=== PATIENT | male | born 1960 | race Caucasian/White ===

== ENCOUNTER → 2017-07-31 14:55 | Outpatient (CLI) | payer MEDICARE, SELFPAY ==
[2017-07-31 17:08] LABS: Absolute Lymphocyte Count 2.63 X10^3/ul (0.83-4.51); Absolute Neutrophil Count 4.6 X10^3/uL (2.0-7.7); Basophil# 0.09 X10^3/uL; Eosinophil# 0.43 X10^3/uL; Hematocrit 51.6 % (40-54); Lymphocyte # 2.63 X10^3/ul (4.0); Lymphocyte % 30.3 % (19-41); Mean Corp Hgb Conc 32.9 g/gl (32-36); Mean Corpuscular Hgb 30.2 pg (27.0-32.0); Mean Corpuscular Volume 91.8 fL (80-94); Mean Platelet Vol. 12.3 fl (6.2-12.0); Monocyte# 0.91 X10^3/uL; Monocyte% 10.5 % (0-10); Platelet Count 193 K/mm3 (150-450); RBC Distribution Width CV 12.8 % (11.6-14.6); RBC Distribution Width SD 42.6 fl (35.1-43.9); Red Blood Count 5.62 M/mm3 (4.6-6.2); White Blood Count 8.7 K/mm3 (4.4-11.0)
[2017-07-31 17:18] LABS: ALB/GLOB Ratio 0.9 RATIO (0.9-2.4); AST(SGOT) 17 U/L (15-37); Alanine Aminotransfer ALT/SGPT 26 U/L (16-61); Albumin, Serum 3.6 g/dL (3.2-5.0); Alkaline Phosphatase 134 U/L (45-117); Anion Gap 7 (5-15); BUN 13 mg/dL (7-18); BUN/Creat Ratio 10.5 RATIO (10-20); Calcium,Total 8.7 mg/dL (8.5-10.1); Chloride 105 mmol/L (98-107); Cholesterol 161 mg/dL (200); Creatinine, Serum 1.24 mg/dL (0.70-1.30); EST Glomerular Filtration Rate 64 mL/min (>60); Est Glom Filt Rate - Afr Amer 78 mL/min (>60); Glucose 119 mg/dL (74-106); High Density Lipoprotein 30 mg/dL; Potassium 3.9 mmol/L (3.5-5.1); Protein, Total 7.6 g/dL (6.4-8.2); Sodium Level 139 mmol/L (136-145); Triglycerides 236 mg/dL; Very Low Density Lipoprotein 47 mg/dL (5-40)
[2017-07-31 17:21] LABS: POSITIVE COUNT NO; POSITIVE DIFFERENTIAL NO; POSITIVE MORPHOLOGY NO
[2017-07-31 17:27] LABS: Vitamin D,25 Hydroxy 13.6 ng/mL (29.95-100.01)
[2017-07-31 17:40] LABS: Microalbumin,Random Urine < 5.0 mg/L (NO RANGE EST.)
== END ==
PROVIDERS: Family Provider Family Medicine; PCP Family Medicine; Visit Provider Family Medicine
DX: E11.42 Type 2 diabetes mellitus with diabetic polyneuropathy (principal); E78.5 Hyperlipidemia, unspecified; E55.9 Vitamin D deficiency, unspecified; Z51.81 Encounter for therapeutic drug level monitoring
CPT/HCPCS: 36415; 80053; 80061; 82043; 82306; 82570; 85025

== ENCOUNTER → 2017-09-03 16:15 | Outpatient (CLI) | payer MEDICARE, SELFPAY ==
--- NOTE | 2017-09-03 16:15 | DT_ITS ---
This patient was seen during an EMR downtime August 31, 2017 - September 07, 2017. This patient may have a combination of paper and electronic documentation or all paper documentation. All documentation is viewable within the e-chart portion of [facility] for each patient visit.
[2017-09-08 01:42] LABS: BUN 10 mg/dL (7-18); Glucose 93 mg/dL (74-106)
[2017-09-08 01:43] LABS: ALB/GLOB Ratio 0.9 RATIO (0.9-2.4); AST(SGOT) 14 U/L (15-37); Alanine Aminotransfer ALT/SGPT 25 U/L (16-61); Albumin, Serum 3.6 g/dL (3.2-5.0); Alkaline Phosphatase 126 U/L (45-117); Calcium,Total 8.9 mg/dL (8.5-10.1); Chloride 104 mmol/L (98-107); Creatinine, Serum 1.25 mg/dL (0.70-1.30); EST Glomerular Filtration Rate 64 mL/min (>60); Est Glom Filt Rate - Afr Amer 78 mL/min (>60); Globulin 3.8 g/dL (2.2-4.2); Potassium 3.8 mmol/L (3.5-5.1); Protein, Total 7.4 g/dL (6.4-8.2); Sodium Level 143 mmol/L (136-145)
[2017-09-08 01:44] LABS: Anion Gap 7 (5-15)
[2017-09-08 01:47] LABS: Hematocrit 49.8 % (40-54); Hemoglobin 16.1 g/dl (13.0-16.5); Mean Corp Hgb Conc 32.3 g/gl (32-36); Mean Corpuscular Hgb 29.9 pg (27.0-32.0); Mean Corpuscular Volume 92.4 fL (80-94); Neutrophil % 55.5 % (47-70); POSITIVE COUNT NO; POSITIVE DIFFERENTIAL NO; POSITIVE MORPHOLOGY NO; Platelet Count 202 K/mm3 (150-450); RBC Distribution Width CV 13.4 % (11.6-14.6); RBC Distribution Width SD 44.2 fl (35.1-43.9); Red Blood Count 5.39 M/mm3 (4.6-6.2)
[2017-09-08 01:48] LABS: Absolute Lymphocyte Count 2.61 X10^3/ul (0.83-4.51); Absolute Neutrophil Count 5.1 X10^3/uL (2.0-7.7); Basophil# 0.07 X10^3/uL; Basophil% 0.8 % (0-1); Eosinophil# 0.28 X10^3/uL; Eosinophils% 3.1 % (0-5); Lymphocyte # 2.61 X10^3/ul (4.0); Lymphocyte % 28.4 % (19-41)
[2017-09-08 01:49] LABS: White Blood Count 9.2 K/mm3 (4.4-11.0)
== END ==
PROVIDERS: Family Provider Family Medicine; PCP Family Medicine; Visit Provider Family Medicine
DX: M35.1 Other overlap syndromes (principal); Z51.81 Encounter for therapeutic drug level monitoring
CPT/HCPCS: 36415; 80053; 85025

== ENCOUNTER → 2017-12-31 14:49 | Outpatient (CLI) | payer MEDICARE, SELFPAY | PROVIDERS: Family Provider Family Medicine; PCP Family Medicine; Visit Provider Family Medicine | DX: Z51.81 Encounter for therapeutic drug level monitoring (principal) | CPT/HCPCS: 36415 ==

== ENCOUNTER → 2018-07-15 13:05 | Outpatient (CLI) | payer MEDICARE, SELFPAY ==
--- NOTE | 2018-07-15 13:09 | RAD_ITS ---
STUDY: SWALLOWING STUDY REASON FOR EXAM: Male, 58 years old. Dysphagia. TECHNIQUE: The examination was performed with Speech Pathology in attendance. Under fluoroscopic observation, the patient ingested thin barium, thick barium, barium pudding, and barium coated cracker. FLUOROSCOPY TIME: 2:05 minutes/seconds. 1941 fluoroscopic spot images were obtained. RADIOLOGIST INVOLVEMENT: Radiologist was present and providing direct supervision. COMPARISON: None. FINDINGS: The following was observed during swallowing of the various mixtures of barium: Thin Barium: There is evidence of silent aspiration with ingestion of thin liquids with a straw. Thick Barium: There was no evidence of aspiration or laryngeal penetration. Barium Pudding: There was no evidence of aspiration or laryngeal penetration. Barium Coated Cracker: There was no evidence of aspiration or laryngeal penetration. RAD/Swallowing Function w/Video IMPRESSION: Silent aspiration with ingestion of thin liquids by straw. The swallow study findings were discussed with the patient by the speech pathologist at the conclusion of the examination. Please see speech pathology report for more information and recommendations. Electronically Signed: Yassine Bianchi, at 14:47 EDT , Service support ,
--- NOTE | 2018-07-15 14:13 | SP.MBSS_ITS ---
PRIMARY / SECONDARY DIAGNOSIS: dysphagia, unspecified REFERRING PHYSICIAN: Dr. Nelson Xiong CURRENT DIET: soft textures/thin liquids DENTITION: natural teeth/several missing molars MENTAL STATUS: WFL RESPIRATORY STATUS: O2 via room air PREVIOUS MODIFIED BARIUM SWALLOW STUDY: N/A REASON FOR REFERRAL: pain with swallowing, difficulty with pills MEDICAL HISTORY: Crest syndrome, possible GERD although patient unsure STUDY FINDINGS: Patient participated in a Modified Barium Swallow (MBS) study on 07/15/2018. Dr. Bianchi was the radiologist present for this evaluation. This study was recorded in the lateral view and images were sent to PACs for storage. The following consistencies were presented to this patient for analysis of oropharyngeal swallow function: thin liquid, nectar thick liquid, pudding, and a regular textured, Mirlande Doone cookie. Results of the MBS are as follows: PENETRATION / ASPIRATION SCALE (RALPH): 1 = does not enter airway 2 = enters airway/above vocal folds/ejected 3 = enters airway/above vocal folds/not ejected 4 = enters airway/contacts vocal folds/ejected 5 = enters airway/contacts vocal folds/not ejected 6 = enters airway/below vocal folds/ejected 7 = enters airway/below vocal folds/not ejected despite effort 8 = enters airway/below vocal folds/no effort PENETRATION / ASPIRATION SCALE (SCORE): 1) thin liquids via teaspoon = 1 2) thin liquids via teaspoon = 1 3) thin liquids via small single sip from cup= 4 *questionable trace amount not ejected 4) thin liquids via large single sip from cup = 3 5) thin liquids via sequential sips from cup = 1 6) nectar thick liquids via small single sip from cup= 1 7) nectar thick liquids via large single sip from cup = 1 8) pudding = *image not capture due to technical issues; pt tolerated without aspiration 9) cookie = 1 10) thin liquids via straw = 5 11) thin liquids via small sip from cup = 1 12) thin liquids via large sip from cup =1 IMPRESSION: Mild oropharyngeal dysphagia (R13.12) ORAL PHASE CHARACTERIZED BY: LABIAL SEAL: no labial escape TONGUE CONTROL DURING BOLUS MANIPULATION: escape to lateral buccal cavity/floor of mouth BOLUS PREPARATION / MASTICATION: slow prolonged chewing/mashing with complete recollection BOLUS TRANSPORT / LINGUAL MOTION: slowed tongue motion ORAL RESIDUE: residue collection on oral structures PHARYNGEAL PHASE CHARACTERIZED BY: INITIATION OF PHARYNGEAL SWALLOW: bolus head at posterior laryngeal surface of epiglottis at first hyoid excursion SOFT PALATE ELEVATION: no bolus between soft palate and pharyngeal wall LARYNGEAL ELEVATION: partial superior movement of thyroid cartilage/partial approximation of arytenoids cartilage to epiglottic petiole ANTERIOR HYOID EXCURSION: partial anterior movement EPIGLOTTIC MOVEMENT: complete epiglottic inversion LARYNGEAL VESTIBULE CLOSURE AT HEIGHT OF SWALLOW: incomplete laryngeal vestibule closure with narrow column of air/contrast in laryngeal vestibule PHARYNGEAL STRIPPING WAVE: pharyngeal stripping wave present / complete PHARYNGOESOPHAGEAL SEGMENT OPENING: partial distension and partial duration; partial obstruction of flow TONGUE BASE RETRACTION: narrow column of contrast between tongue base and posterior pharyngeal wall PHARYNGEAL RESIDUE: collection of residue within or on pharyngeal structures ESOPHAGEAL PHASE CHARACTERIZED BY: ESOPHAGEAL BOLUS CLEARANCE IN THE UPRIGHT POSITION: mild esophageal retention DIET TEXTURE RECOMMENDATIONS: Will recommend a mechanical soft textured, thin liquid diet. COMPENSATORY STRATEGIES RECOMMENDED: Will recommend reduced bolus volume and rate of intake, alternating bites with sips, no straws, adding sauces/gravy to textures or choosing moist food, seated upright at 90 degrees during PO intake and remain upright for 30-60 minutes post meal (GERD precaution), and medications with purees. INTERPRETATION OF RESULTS: Patient presents with mild oropharyngeal dysphagia secondary to Crest Syndrome. Oral phase primarily marked by prolonged mastication and diminished control of Mirlande Doone shortbread cookie with mild oral residue following initial swallow. Pharyngeal phase primarily marked by delayed pharyngeal swallow onset timing resulting in suboptimal bolus location upon swallow onset. With sips of thin liquid via straw the patient noted to have penetration to the vocal cords that was not ejected, however no aspiration noted upon closer inspection. The patient noted to have sporadic penetration not directly related to liquid consistency and/or quantity. No penetration/aspiration noted with trials of nectar thickened liquids, pudding, or solid textures. RECOMMENDATIONS: The patient requires intensive skilled speech-language intervention targeting continued diet texture management and training and implementation of recommended compensatory strategies. Would consider a repeat modified barium swallow study on an annual basis given etiology of swallow deficit. Results and recommendations were discussed with the patient immediately following MBS completion, with the patient verbalizing understanding of education provided. The patient is aware to follow up with the ordering physician. IMAGE COUNT: [id number] Maricarmen Ruth M.A., [facility] Speech Language Pathologist [facility] [address] [place] [address] [email or web address] [phone]
== END ==
PROVIDERS: Family Provider Family Medicine; PCP Family Medicine; Referring Provider Family Medicine; Visit Provider Family Medicine
DX: R13.10 Dysphagia, unspecified (principal)
CPT/HCPCS: 36415; 74230; 86038; 86225; 86235; 92611

== ENCOUNTER → 2018-07-15 13:37 | Outpatient (CLI) | payer MEDICARE, SELFPAY ==
[2018-07-19 16:07] LABS: ANTINUCLEAR ANTIBODIES DIRECT Positive (Negative); Anti-Centromere B Ab <0.2 AI (0.0-0.9); Anti-Chromatin 0.3 AI (0.0-0.9); Anti-Jo <0.2 AI (0.0-0.9); Anti-Scleroderma-70 AB 0.8 AI (0.0-0.9); RNP Ab 3.4 AI (0.0-0.9); SJOGREN'S Anti-SS-A test < 0.2 AI (0.0-0.9); SJOGREN'S Anti-SS-B test < 0.2 AI (0.0-0.9); Smith Ab <0.2 AI (0.0-0.9)
[2018-07-20 18:01] LABS: Anti-dsDNA Ab 1 IU/mL (0-9)
== END ==
PROVIDERS: Family Provider Family Medicine; PCP Family Medicine; Referring Provider Family Medicine; Visit Provider Family Medicine
DX: M35.1 Other overlap syndromes (principal)
CPT/HCPCS: 36415; 86038; 86225; 86235

== ENCOUNTER → 2019-01-18 15:37 | Outpatient (CLI) | payer MEDICARE, SELFPAY ==
[2019-01-18 17:12] LABS: Absolute Lymphocyte Count 2.26 X10^3/uL (0.83-4.51); Absolute Neutrophil Count 4.8 X10^3/uL (2.0-7.7); Basophil# 0.08 X10^3/uL; Eosinophils% 2.4 % (0-5); Hematocrit 49.4 % (40-54); Hemoglobin 15.9 g/dL (13.0-16.5); Lymphocyte # 2.26 X10^3/ul (4.0); Lymphocyte % 27.3 % (19-41); Mean Corp Hgb Conc 32.2 g/dL (32-36); Mean Corpuscular Hgb 29.7 pg (27.0-32.0); Mean Corpuscular Volume 92.2 fL (80-94); Mean Platelet Vol. 11.7 fl (6.2-12.0); Monocyte# 0.91 X10^3/uL; NRBC Flagged by Analyzer 0 % (0-5); Neutrophil % 58.1 % (47-70); Platelet Count 188 K/mm3 (150-450); RBC Distribution Width CV 12.6 % (11.6-14.6); RBC Distribution Width SD 42.6 fl (35.1-43.9); Red Blood Count 5.36 M/mm3 (4.6-6.2); White Blood Count 8.3 K/mm3 (4.4-11.0)
[2019-01-18 17:39] LABS: Vitamin B12 617 pg/mL (211-911); Vitamin D,25 Hydroxy 23.8 ng/mL (29.95-100.01)
[2019-01-18 17:49] LABS: ALB/GLOB Ratio 0.9 RATIO (0.9-2.4); AST(SGOT) 17 U/L (15-37); Alanine Aminotransfer ALT/SGPT 28 U/L (16-61); Albumin, Serum 3.6 g/dL (3.2-5.0); Alkaline Phosphatase 117 U/L (45-117); Anion Gap 4 (5-15); BUN 11 mg/dL (7-18); BUN/Creat Ratio 9.6 RATIO (10-20); Calcium,Total 8.6 mg/dL (8.5-10.1); Chloride 104 mmol/L (98-107); Creatinine, Serum 1.14 mg/dL (0.70-1.30); EST Glomerular Filtration Rate 71 mL/min (>60); Est Glom Filt Rate - Afr Amer 85 mL/min (>60); Globulin 3.8 g/dL (2.2-4.2); Glucose 99 mg/dL (74-106); Potassium 3.7 mmol/L (3.5-5.1); Protein, Total 7.4 g/dL (6.4-8.2); Sodium Level 138 mmol/L (136-145); T4 Free Direct 0.96 ng/dL (0.76-1.46); Thyroid Stim Hormone (TSH) 2.58 uIU/mL (0.358-3.74)
[2019-01-18 19:01] LABS: Hemoglobin A1c 5.7 % (4.2-6.3)
== END ==
PROVIDERS: Family Provider Family Medicine; PCP Family Medicine; Visit Provider Family Medicine
DX: R53.83 Other fatigue (principal); E55.9 Vitamin D deficiency, unspecified; E11.9 Type 2 diabetes mellitus without complications
CPT/HCPCS: 36415; 80053; 82306; 82533; 82607; 83036; 84439; 84443; 85025

== ENCOUNTER 2019-04-13 18:21 | Observation (INO) | payer MEDICARE, SELFPAY ==
[2019-04-13 18:22] VITALS: BP 115/77; PULSE 82; RESP 17; TEMP 36.5; O2SAT 97; BMI 30.7
[2019-04-13 19:23] VITALS: RESP 17
[2019-04-13] MEDS: 0.9% Normal Saline 1,000 ML 150 ML IV (19:24)
[2019-04-13 19:37] LABS: Bacteria 0 SEEN /hpf (None Seen); Mucous, Urine 0 SEEN /hpf (<or=2+); Red Blood Cells-Urine 0 SEEN /hpf (0-5); White Blood Cells 0 SEEN /hpf (0-5)
[2019-04-13 19:39] LABS: Absolute Lymphocyte Count 1.64 X10^3/uL (0.83-4.51); Absolute Neutrophil Count 12.1 X10^3/uL (2.0-7.7); Basophil# 0.02 X10^3/uL; Basophil% 0.1 % (0-1); Hemoglobin 17.2 g/dL (13.0-16.5); Lymphocyte # 1.64 X10^3/ul (4.0); Lymphocyte % 11.3 % (19-41); Mean Corp Hgb Conc 33.7 g/dL (32-36); Mean Corpuscular Hgb 29.6 pg (27.0-32.0); Mean Corpuscular Volume 87.8 fL (80-94); Mean Platelet Vol. 10.9 fl (6.2-12.0); Monocyte# 0.72 X10^3/uL; Monocyte% 4.9 % (0-10); NRBC Flagged by Analyzer 0 % (0-5); Neutrophil # 12.12 X10^3/uL (2.7-7.7); Neutrophil % 83.2 % (47-70); Platelet Count 254 K/mm3 (150-450); RBC Distribution Width CV 12.1 % (11.6-14.6); RBC Distribution Width SD 39.3 fl (35.1-43.9); Red Blood Count 5.81 M/mm3 (4.6-6.2); White Blood Count 14.6 K/mm3 (4.4-11.0)
[2019-04-13 19:40] LABS: Color, Urine Yellow (Yellow); Glucose, Dipstick Normal (Normal); Ketone-Dipstick Negative (Negative); Leukocyte Esterase-Dipstick 25 /ul (Negative); Nitrite-Dipstick Negative (Negative); Occult Blood-Urine Negative /ul (Negative); Protein-Dipstick Negative (Negative); Specific Gravity, Urine 1.015 (1.002-1.030); Urine Bilirubin Dipstick Negative (Negative); Urine Clarity Clear (Clear); Urine Urobilinogen Normal (Normal)
[2019-04-13 20:02] LABS: Squamous Epithelial Cells - UA 0-5 SEEN /hpf (0-5)
[2019-04-13 20:06] LABS: Anion Gap 6 (5-15); BUN 20 mg/dL (7-18); BUN/Creat Ratio 16.1 RATIO (10-20); Chloride 104 mmol/L (98-107); Creatinine, Serum 1.24 mg/dL (0.70-1.30); EST Glomerular Filtration Rate 64 mL/min (>60); Est Glom Filt Rate - Afr Amer 77 mL/min (>60); Estimated Creatinine Clearance 70.85 ml/min; Glucose 137 mg/dL (74-106); Potassium 4.1 mmol/L (3.5-5.1); Sodium Level 136 mmol/L (136-145)
[2019-04-13 20:08] LABS: Amphetamine Urine VISTA NEGATIVE (<1000 ng/mL); Barbiturate Urine VISTA NEGATIVE (< 200 ng/mL); Benzodiazepine Urine VISTA NEGATIVE (< 200 ng/mL); Cocaine Urine VISTA NEGATIVE (< 300 ng/mL); Ecstacy Urine VISTA NEGATIVE (< 500 ng/mL); Methadone Urine VISTA NEGATIVE (< 300 ng/mL); PCP Urine VISTA NEGATIVE (< 25 ng/mL); THC Urine VISTA NEGATIVE (< 50 ng/mL); Vista UDS pH Range 6
--- NOTE | 2019-04-13 21:01 | CM.ED ---
Social Work Consult: D/C Planning Informant: BOO Ribeiro Per nursing staff: Patient discharged from [facility] detox unit today. Patient stating to not be able to care for self and came straight to [facility] ED from [facility]. Chief Complaint: Patient stating to be unable to care for self and to need to go somewhere where someone can care for me. Marital/Social history: Patient stating to be single. Patient stating to have a 10 year old son, Aden Kim and a 10 year old daughter, Andria Yarbrough. Patient stating that Aden and Andria are 5 months apart and live with the in-laws. Patient stating to speak with Andria but not Aden because he is a brat. Living Situation: Lives alone in an apartment. Employment/Education: Patient stating to be on disability due to medical diagnosis for the past 10 years. Supports/Resources: Limited Mental Health History: Patient denies any mental health history. Substance Abuse History: Patient stating to have a history of abusing pain medication (Oxyir). Patient stating to have ran out and this put patient into withdrawal and why patient brought self to [facility] for detox. This social sciences professor inquiring if patient is wanting to detox from pain medication usage, patient stating I don't want my feet to hurt and the pain medication helped with this. Patient stating to smoke 2-3 ppd of tobacco, depending on how I feel. Patient denies any other substance abuse. Risk to Self/Others: Denies any suicidal thoughts or plan to hurt self. Assessment: Met with patient in room. Introduced self as well as social sciences professor role. Patient agreeable to meet with this social sciences professor. Patient laying in bed with eyes closed during majority of assessment. Patient stating to be in pain and to be unable to care for self. Patient stating to want to go to a detention where patient will have someone to care for patient. Patient stating I feel sick. Patient stating to need to get better so patient can get home to care for cat. Patient stating that patient neighbors are currently checking on patient cat. Patient stating to also be concerned with loosing apartment. Patient stating to not be behind on rent and to pay all bills on time. Patient stating that neighbors want patient to move out and that patient has a letter from the landlord. Patient stating that main pain is from feet and they are messed up. Active support and listening provided. Patient stating to have limited support in the community and is not identifying anyone that could be called to help patient. Patient stating I am a grown man and don't need support. Collaborating with Dr. Roper. Dr. Roper to consult with hospitalist due to patient stating to be unable to ambulate or care for self at this time. PLAN: Admit to acute setting for placement. Rogelio MIRZA, BUSTER
--- NOTE | 2019-04-13 21:06 | HP.PCM_ITS ---
Problem List (1) Failure to thrive Status: Acute Qualifiers: Failure to thrive age range: in adult Qualified Code(s): R62.7 - Adult failure to thrive (2) History of opioid abuse Status: Chronic (3) Chronic pain syndrome Status: Chronic (4) Neuropathy Status: Chronic (5) Gastroparesis due to DM Status: Chronic (6) Diabetes mellitus, type II Status: Chronic Qualifiers: Diabetes mellitus senior care insulin use: without termite exterminator use Diabetes mellitus complication status: with other specified complication Qualified Code(s): E11.69 - Type 2 diabetes mellitus with other specified complication (7) BPH (benign prostatic hyperplasia) Status: Chronic Qualifiers: Lower urinary tract symptom presence: unspecified whether lower urinary tract symptoms present Qualified Code(s): N40.0 - Benign prostatic hyperplasia without lower urinary tract symptoms (8) Tobacco use Status: Chronic History of Present Illness Date of Admission: 04/13/19 Chief Complaint: Unable to care for self, recent opiate withdrawal program treatment The patient is a 58 y/o M w/ PMHx: Hx prior noted Diabetes mellitus type II w/ Suspected Gastroparesis w/ PVD/Neuropathy, HLD, Tobacco use, BPH, Obesity, Suspected Underlying Psychiatric disorder, Polysubstance abuse with percocet with recent discharge from [facility] although patient denies history and notes that the only reason he was sent there was by his primary care physician as he ran out of Percocet and it would not be refilled and he notes he went into withdrawal who presents to the [facility] ED on 04/13/19 with ongoing complaints of BL foot pain, generalized aches, unable to care for himself at home. He notes he feels as though he needs to be admitted to a SNF. He said there is no way he can take care of himself although he does admit to smoking 2 to 4 packs of cigarettes a day and is able to go and get things by himself. He notes his lower extremity foot pain is worse with any attempted palpation with intermittent sharp shooting/stabbing pain, 10/10 in severity, denies any significant history of neuropathy but from his description suspect ongoing neuropathy. Work-up in the ED included T 97.7, heart rate 82, BP 115/77, RR 17, 97% on RA, CBC with WBC 14.6, hemoglobin 17.2, platelet 254 with left shift, BMP with BUN/creatinine 20/1.24, glucose 137, urinalysis unremarkable, urine drug screen unremarkable. meeting manager/licensed master social worker evaluated patient in the ED and he is very adamant that he is not able to return to his home and take care of himself without being on narcotic therapy. He was actually in a cab being driven home from [facility] and instructed the cable television line technician to take him to the hospital in [place]. He denies being admitted to [facility] secondary to an underlying concurrent psychiatric illness but he notes having been there for 5 days. Requested records but have not yet obtained these. In the ED patient administered normal saline. Patient was made aware that given his recent narcoti c abuse history and recent treatment, narcotics would be avoided during his observation. He was also made aware that pending PT/OT evaluation he may not be a candidate for SNF. Past Medical History Past Medical History (Chronic Problems): Chronic Problems History of opioid abuse (Chronic) Chronic pain syndrome (Chronic) Neuropathy (Chronic) Gastroparesis due to DM (Chronic) Diabetes mellitus, type II (Chronic) BPH (benign prostatic hyperplasia) (Chronic) Tobacco use (Chronic) Allergies No Known Allergies Allergy (Verified 04/13/19 18:22) Home Medications: Ambulatory Orders Medication Instructions Recorded Tamsulosin HCl [Flomax] 0.4 mg PO BID 10/04/15 Surgical History: - - T+A, L ankle surgery. Psychiatric History: - - Suspect underlying psychiatric disorder, from current presentation concern for schizophrenia. Lives: Alone Smoking Status: Current every day smoker - Admits to 2-4 per day cigarette tobacco usage since youth. Tobacco Use: Cigarettes Alcohol: None Drugs: - - From discussions on from recent discharge recent treatment for opiate withdrawal with heavy Percocet prior usage. - *Family History Maternal History Items: - - Patient notes a maternal family history of ovarian cancer. Paternal History Items: - - Patient notes a paternal family history of leukemia. Review of Systems Constitutional: Reports: Anorexia, Malaise, Weakness, Fatigue. Denies: Chills, Fever, Weight Change HEENT: Reports: Nasal Congestion, Sinus Congestion. Denies: Head Aches, Sinus Drainage Cardiovascular: Denies: Chest Pain, Palpitations Respiratory: Denies: Cough, Shortness of breath at rest, Sputum production Gastrointestinal: Reports: Constipation, Nausea. Denies: Abdominal Pain, Vomiting Genitourinary: Denies: Dysuria Musculoskeletal: Reports: Back Pain, Foot Pain, Joint Pain, Muscle pain. Denies : Joint Tenderness Skin: Denies: Rash, Wounds Neurological: Reports: Numbness, Tingling. Denies: Focal weakness Psychiatric: Denies: Anxiety, Depression, Homicidal Ideations, Suicidal Ideations Hematologic/ Lymphatic: Denies: Easy Bruising, Easy Bleeding VTE Information - Inpt Only VTE Present on Admission: No VTE Mechan Device Prophylaxis: SCD's VTE Pharm Prophylaxis ordered?: Yes Patient Problems: Active and Suspected Problems Failure to thrive (Acute) Subjective: Seated upright in the ED bed, watching TV, notes he is in market distress but does not appear so, notes ongoing foot discomfort, notes he cannot care for himself secondary to not being able to tolerate his foot pain off of narcotics. Objective: Physical Examination: General: awake, alert, oriented x 3 and cooperative, seated upright in the ED bed in no obvious apparent distress, initially watching TV. Skin: normal color, turgor, no icterus, cyanosis. HEENT: AT/NC, EOMI, PERRLA, MMM, no carotid bruits or JVD noted. Lungs: CTA bilaterally, moderate effort, moderate decrease BL bases, no rales, ronchi or wheezing. Heart: Regular rate and rhythm; no gallop, rub audible. Abdomen: soft, overweight, NTTP, ND, normal BS, no HSM. Extremities: no cyanosis, clubbing, or edema, tenderness to palpation of his bilateral lower extremities with no obvious concerning findings. Neurological: patient awake, alert, oriented x 3; cognitive function intact; pupils equally reactive to light and accomodation; cranial nerves II-XII grossly normal, moving all 4 extremities notes ongoing chronic neuropathic discomfort to bilateral lower feet, strength mild to moderately impaired but more so secondary patient unwillingness to perform certain tasks. Psychiatric: affect appears abnormal, suspect underlying psychiatric illness, possibly schizophrenia, no obvious current depressive or anxiety feelings. - Physical Exam Vitals/I&O's: Vital Signs Temp Pulse Resp BP Pulse Ox 97.7 F L 82 17 115/77 97 04/13/19 18:22 04/13/19 18:22 04/13/19 19:23 04/13/19 18:22 04/13/19 18:22 Oxygen Delivery Method Room Air Weight: 220 lb Body Mass Index (BMI) 30.7 Laboratory Results 04/13/19 19:24: Urine Color Yellow, Urine Clarity Clear, Urine pH 6.0, Ur Specific [place] 1.015, Urine Protein Negative, Urine Glucose (UA) Normal, Urine Ketones Negative, Urine Occult Blood Negative, Urine Nitrite Negative, Urine Bilirubin Negative, Urine Urobilinogen Normal, Ur Leukocyte Esterase 25 H, Urine RBC 0 SEEN, Urine WBC 0 SEEN, Ur Squamous Epith Cells 0-5 SEEN, Urine Bacteria 0 SEEN, Urine Mucus 0 SEEN 04/13/19 19:24: Urine Opiates Screen NEGATIVE, Urine Methadone Screen NEGATIVE, Ur Barbiturates Screen NEGATIVE, Ur Phencyclidine Scrn NEGATIVE, Ur Amphetamines Screen NEGATIVE, U Methamphetamin-MDMA NEGATIVE, U Benzodiazepines Scrn NEGATIVE, Urine Cocaine Screen NEGATIVE, U Cannabinoids Screen NEGATIVE, Ur Drug Screen Comment 04/13/19 19:27: WBC 14.6 H, RBC 5.81, Hgb 17.2 H, Hct 51.0, MCV 87.8, MCH 29.6, MCHC 33.7, RDW Std Deviation 39.3, RDW Coeff of Halley 12.1, Plt Count 254, MPV 10.9, Immature Gran % (Auto) 0.500, Neut % (Auto) 83.2 H, Lymph % (Auto) 11.3 L, [place] % (Auto) 4.9, Eos % (Auto) 0.0, Baso % (Auto) 0.1, Absolute Neuts (auto) 12.1 H, Absolute Lymphs (auto) 1.64, Nucleated RBC % 0 04/13/19 19:27: Sodium 136, Potassium 4.1, Chloride 104, Carbon Dioxide 26.0, Anion Gap 6, BUN 20 H, Creatinine 1.24, Estim Creat Clear Calc 70.85, Est GFR (MDRD) Af Amer 77, Est GFR (MDRD) Non-Af 64, BUN/Creatinine Ratio 16.1, Glucose 137 H, Calcium 9.0 Current Medications Sodium Chloride () 1,000 mls @ 150 mls/hr IV .[id number] [facility] Last Admin: 04/13/19 19:24 Dose: 150 mls/hr Documented by: Assessment/Plan All Active Problems Failure to thrive (Acute) The patient is a 58 y/o M w/ PMHx: Hx prior noted Diabetes mellitus type II w/ Suspected Gastroparesis w/ PVD/Neuropathy, HLD, Tobacco use, BPH, Obesity, Suspected Underlying Psychiatric disorder, Polysubstance abuse with percocet with recent discharge from [facility] although patient denies history and notes that the only reason he was sent there was by his primary care physician as he ran out of Percocet and it would not be refilled and he notes he went into withdrawal who presents to the [facility] ED on 04/13/19 with ongoing complaints of BL foot pain, generalized aches, unable to care for himself at home. 1. Failure to thrive, adult, unable to care for self: Patient recently discharged from [facility], suspect underlying psychiatric illness, records requested, notes ongoing pain to his bilateral feet is etiology for unable to care for himself off narcotic therapy, attempting to transition to gabapentin to see if this may control his symptoms although will need to be cautious given abuse history, will admit to the medical surgical floor, maintain on fall precautions, PT and OT will be consulted for consideration for intermediate facility placement as well as case management however did discuss that patient may very readily not qualify. 2. History of diabetes mellitus type II with neuropathy and suspected prior gastroparesis as well as PVD: Not on regimen, notes history of diabetes prior but since 80 pound weight loss has been off medications, will obtain hemoglobin A1c and in interim maintain on ADA diet, accu checks w/ ISS. Will initiate low- dose 3 times daily gabapentin to see if this assists with patient's neuropathy will need to be cautious given history of narcotic prior abuse. 3. History of opiate abuse: Patient recently discharged from [facility] with reported opiate withdrawal treatment however he was there for 5 days, records requested a suspect potential concurrent psychiatric disorder treatment. Discussed with patient that narcotics would be avoided during his admission. 4. Tobacco Abuse: Encouraged cessation, inpatient consultation per RT, NR if desired. 5. BPH: We will continue patient Flomax regimen. 6. Suspected psychiatric disorder: As noted recent [facility] admission for narcotic withdrawal however he was there for 5 days therefore suspect potential underlying psychiatric illness concurrently, records requested. 7. DVT prophylaxis: SCDs, Lovenox. Code Visit OBSV E&M: 63636 Initial observation care L3
--- NOTE | 2019-04-13 21:07 | ED.VISSUMM ---
- ER Visit Summary Date of Service: 04/13/19 Chief Complaint: [Weakness and requesting admission for detention placement] History of Present Illness: The patient is a 58 M [presents to the emergency department with complaint of chronic pain in his feet. Patient states that he feels very weak. Patient states he was just discharged from [facility] today and placed in a cab to go home. Patient was therefore detox from opiates. Patient states that he cannot care for himself and cannot go home. Patient is asking to be placed in a detention. Patient has chronic pain in his feet. He tells me he used to be diabetic and have high cholesterol but then he lost 80 pounds. He denies any recent illness. Denies any fevers. Denies feeling suicidal or homicidal.] Physical Examination: [HEENT-PERRLA, EOMI. Cranial nerves II through XII grossly intact. TMs clear. Mucous membranes moist. No adenopathy. Cardiovascular-regular rate and rhythm without murmur or ectopy Lungs-clear to auscultation, chest wall stable without crepitus or subcu emphysema Abdomen-normoactive bowel sounds, soft, nontender, no rebound or rigidity, no peritoneal signs. Extremities-intact ?4, normal range of motion, normal pulses, atraumatic] Test Results: [CBC with differential obtained showed a white count of 14.6, hemoglobin 17, hematocrit 51, platelet 254. Chemistries unremarkable. Urinalysis was normal. Toxicology screen was negative.] Emergency Department Course and Treatment: [IV line established and he was given normal saline.] Treatment Plan: [Discussed with hospitalist to evaluate patient for admission. Patient was seen by the social services technician.] Disposition: [Admit] Impression: [Lysed weakness Chronic pain History of opiate abuse] This note was generated with dotCloud dictation software. It may contain incorrect words, spelling, and punctuation that were not noted in review of the chart prior to signing ED Disposition - Plan for ED Patient: Referrals: Nelson Xiong DO [Primary Care Provider] -
[2019-04-13 22:07] VITALS: BMI 29.5
[2019-04-13 22:35] LABS: Magnesium 2.7 mg/dL (1.6-2.6)
[2019-04-13] MEDS: 0.9% Normal Saline 1,000 ML 125 ML IV (22:44)
[2019-04-13] MEDS: Methocarbamol 750 MG Tablet PO (23:10)
[2019-04-13] MEDS: Pramipexole Di-HCl 0.25 MG Tablet PO (23:10)
[2019-04-13] MEDS: Gabapentin 100 MG Capsule 200 MG PO (23:11)
[2019-04-13] MEDS: Famotidine 20 MG Tablet PO (23:11)
[2019-04-13 23:16] LABS: Bedside Glucose 115 mg/dL (70-110)
[2019-04-13 23:20] VITALS: BP 114/70; PULSE 64; RESP 16; TEMP 36.7; O2SAT 98
[2019-04-13] MEDS: Acetaminophen 325 MG Tablet 650 MG PO (23:31)
[2019-04-13] MEDS: BENZOCAINE/MENTHOL 1 LOZENGE MUCOUS MEM (23:31)
[2019-04-14] MEDS: Magnesium Hydroxide 30 ML UDC 15 ML PO (00:26)
[2019-04-14 03:32] VITALS: BP 108/72; PULSE 71; RESP 18; TEMP 36.6; O2SAT 96
[2019-04-14] MEDS: Ibuprofen 400 MG Tablet PO ×2 (03:39→11:28)
[2019-04-14 06:09] LABS: Absolute Lymphocyte Count 2.87 X10^3/uL (0.83-4.51); Absolute Neutrophil Count 9.5 X10^3/uL (2.0-7.7); Basophil# 0.05 X10^3/uL; Basophil% 0.4 % (0-1); Eosinophil# 0.02 X10^3/uL; Eosinophils% 0.1 % (0-5); Hematocrit 49.4 % (40-54); Hemoglobin 16.2 g/dL (13.0-16.5); Lymphocyte # 2.87 X10^3/ul (4.0); Lymphocyte % 20.9 % (19-41); Mean Corp Hgb Conc 32.8 g/dL (32-36); Mean Corpuscular Volume 88.5 fL (80-94); Mean Platelet Vol. 10.9 fl (6.2-12.0); Monocyte# 1.26 X10^3/uL; Monocyte% 9.2 % (0-10); NRBC Flagged by Analyzer 0 % (0-5); Neutrophil # 9.45 X10^3/uL (2.7-7.7); Platelet Count 228 K/mm3 (150-450); RBC Distribution Width CV 12.2 % (11.6-14.6); RBC Distribution Width SD 39.8 fl (35.1-43.9); Red Blood Count 5.58 M/mm3 (4.6-6.2); White Blood Count 13.7 K/mm3 (4.4-11.0)
[2019-04-14 06:48] LABS: ALB/GLOB Ratio 0.9 RATIO (0.9-2.4); AST(SGOT) 20 U/L (15-37); Alanine Aminotransfer ALT/SGPT 57 U/L (16-61); Alkaline Phosphatase 82 U/L (45-117); Anion Gap 6 (5-15); BUN 19 mg/dL (7-18); BUN/Creat Ratio 17.4 RATIO (10-20); Calcium,Total 8.3 mg/dL (8.5-10.1); Chloride 106 mmol/L (98-107); Creatinine, Serum 1.09 mg/dL (0.70-1.30); EST Glomerular Filtration Rate 74 mL/min (>60); Est Glom Filt Rate - Afr Amer 90 mL/min (>60); Globulin 3.2 g/dL (2.2-4.2); Glucose 107 mg/dL (74-106); Protein, Total 6.2 g/dL (6.4-8.2); Sodium Level 138 mmol/L (136-145); Thyroid Stim Hormone (TSH) 0.82 uIU/mL (0.358-3.74)
--- NOTE | 2019-04-14 07:00 | NURSING ---
pt very tearful this morning reports feeling sad and having situational depression. pt expresses sadness regarding his relationship with his children and states that he is a prisoner of his own body. active listening and emotional support offered
[2019-04-14 07:01] LABS: Bedside Glucose 111 mg/dL (70-110)
[2019-04-14] MEDS: 0.9% Saline Lock 10 ML Syringe IV (07:17)
[2019-04-14] MEDS: Methocarbamol 750 MG Tablet PO ×2 (07:17→16:57)
[2019-04-14] MEDS: Acetaminophen 325 MG Tablet 650 MG PO ×2 (07:17→23:07)
[2019-04-14] MEDS: Ondansetron 4 MG/2 ML Vial IV (07:17)
[2019-04-14 07:43] LABS: Hemoglobin A1c 5.9 % (4.2-6.3)
[2019-04-14 08:31] VITALS: O2SAT 95
[2019-04-14] MEDS: Famotidine 20 MG Tablet PO ×2 (11:16→23:07)
[2019-04-14] MEDS: Enoxaparin 40 MG/0.4 ML Syringe SC (11:16)
[2019-04-14] MEDS: Gabapentin 100 MG Capsule 200 MG PO ×2 (11:16→15:07)
[2019-04-14 11:20] VITALS: BP 117/83; PULSE 66; RESP 18; TEMP 37.1; O2SAT 96
--- NOTE | 2019-04-14 11:51 | CASEMGMT ---
Addendum entered by Adrianna Rice 04/14/19 13:53: SW received call from Juwan at [facility] stating they are not able to accept pt. SW placed a call to [facility]. Per Liz they do allow smoking 3x a day. SW in to speak with pt. SW updated pt that [facility] is not able to accept pt but [facility] does allow smoking 3x a day. Pt agreeable to referral for [facility]. SW placed a call back to Liz at [facility] and provided referral. SW faxed referral. Plan: SNF pending acceptance and pre-cert. Original Note: Social Work Note SW spoke with PT/OT regarding pt. PT/OT state that pt could go home with [facility] safely. SW met with pt and introduced self and role at [facility]. Pt is alert and orientated x4. Pt states that he lives alone in a 1st floor apartment. Pt states he has three wheelchairs at home (manual, electric, and spare). Pt states that he utilizes his electric wheelchair to get around for the past 5 years. Pt states that he also has three canes at home and he used to have a walker but someone else needed it and gave it away. PCP is Dr. Nelson Xiong and preferred pharmacy is [facility]. Pt states that he was still driving up until recently when his feet started to hurt. Pt states that he will go from feeling better to feeling worse. Pt confirms that he was at [facility] and was discharged from there yesterday and asked to come to the ED to be admitted and stay at [facility] until he feels better. SW informed pt that he can't just stay at [facility] until he feels ready as there has to be a medical reason for pt to stay. Pt states if he gets discharged today then he is just going to go to a different hospital. Pt states he is too shaky and weak to get his food right now. Pt states he needs a home health RN to come in everyday. SW explained that C RN will not come in everyday and they usually only come in once a week. Pt states other people in my apartment have someone coming in everyday. SW explained that they could be paying privately for someone to come in. Pt states well I have no money to do that. SW explained SNF to pt and provided pt a list of SNF that accept pt's insurance. Pt states his first choice is [facility] as they allow smoking. SW reiterated to pt that it could be difficult to find SNF to accept pt and that he could end up getting denied. SW again informed pt that PT/OT were stating pt could go home with [facility] and insurance looks at how well pt does with PT/OT. Pt states well that it just their opinion, they don't have my feet. SW informed pt that a referral could be sent to [facility] but again that this worker cannot guarantee pt will be accepted or if pt will get approved. Pt then states that he is getting evicted from his apartment and states he needs someone to help him find a new place. SW provided pt with [facility] information and encouraged pt to call to ask for assistance. Pt states he is already associated with [facility], again SW encouraged pt to follow up with [facility] and see if they are able to assist pt. JASMEET also educated pt that sometimes pt's will have a gericare aide teacher through [employer] and encouraged pt to call and see if they can get pt linked up with a gericare aide teacher. Pt states I Pay my own bills I don't need any help.JASMEET asked pt about any Mental Health history and pt denied. Per H+P pt was at [facility] for 3 days for Opiate dependency but pt doesn't have opiate abuse. SW faxed referral to [facility]. Plan: [facility] pending acceptance and pre-cert. Adrianna Rice CNA HOSPICE, TOP LIFT TRIMMER
[2019-04-14 12:00] LABS: Bedside Glucose 147 mg/dL (70-110)
--- NOTE | 2019-04-14 15:11 | CASEMGMT ---
Social Work Note SW received message from Liz at [facility] stating she is able to accept pt and will submit for pre-cert. Plan: [facility] pending pre-cert Adrianna Rice CONVENIENCE RECYCLE CENTER TECH,ADVERTISING CONSULTANT
--- NOTE | 2019-04-14 15:58 | CASEMGMT ---
BOO CM in to complete VANG form with patient. VANG form explained, patient denied any questions at this time. Patient signed form and filed in chart. Copy of signed form provided to patient. Patient denied further needs or concerns at this time.
[2019-04-14 16:50] VITALS: BP 123/79; PULSE 61; RESP 18; TEMP 37.3; O2SAT 96
[2019-04-14] MEDS: Pramipexole Di-HCl 0.25 MG Tablet PO (16:57)
[2019-04-14 17:06] LABS: Bedside Glucose 125 mg/dL (70-110)
--- NOTE | 2019-04-14 18:18 | PN_ITS ---
Patient Problems: Active and Suspected Problems Failure to thrive (Acute) Subjective: Patient was seen and examined today, I had a long conversation with him in his room today in front of nursing, patient states he has been in severe pain for the last 6 years due to chronic foot pain. He states he has been told he has neuropathy in his feet, patient has been to multiple pain management physicians- he only could name 2 of them-and states that they did not provide him any relief. Patient gets pain medications from his PCP, he states he was taking too many pain medications around out early and could not get them refilled, he then stated that he went through withdrawal, and so he ended up in [place] going to a hospital in [place] (patient could not name the hospital) and he was referred to [facility] for detox services. I told the patient it was unlikely that his PCP would continue to provide narcotics for his chronic pain with the knowledge that he is been through detox services for narcotic withdrawal. Patient's thought processes are scattered, this examiner has the feeling that he is not telling the entire truth about his medical problems. I did talk with his PCP on the phone who told me the patient has been to multiple pain management physicians and is unable (or unwilling) to follow-up with the pain management physicians. Patient told me that he is seen 5 podiatrists in town here-he states that they did not do me any good, patient states he would like his feet cut off if that would help his pain. I t old him I doubt that any superintendent electric power would do that, I stated that the patient would need to follow-up with pain management for further medications to control his pain. At this time, patient wants to go to an extended care facility because he states he cannot take care of himself, he is only one assist however when getting up to use the restroom. At the time of my discussion with the patient, he does not appear to be in severe pain-he just appears to be more frustrated with his medical problems. Patient also told me he was given a diagnosis of bipolar disorder but he does not agree with this diagnosis. The patient's PCP states that he has no formal diagnosis of bipolar disorder to his knowledge. - Physical Exam Vitals/I&O's: Vital Signs Temp Pulse Resp BP Pulse Ox 99.1 F 61 18 123/79 H 96 04/14/19 16:50 04/14/19 16:50 04/14/19 16:50 04/14/19 16:50 04/14/19 16:50 Oxygen Delivery Method Room Air Weight: 96 kg Body Mass Index (BMI) 29.5 Intake and Output for Last 24 Hours 04/12/19 04/13/19 04/14/19 23:59 23:59 23:59 Intake Total 450 / 450 2043 Balance 450 / 450 2043 General: Alert, Oriented x3, Cooperative, No apparent distress, Well developed HEENT: Atraumatic, PERRLA, EOMI, Normocephalic Oral: Moist Mucosa Neck: Supple, Trachea Midline, Thyroid Normal Size and Texture Lungs: Clear to auscultation, Normal air movement, No rhonchi, No wheeze, No rales Cardiovascular: Regular rate, Regular Rhythm, Normal S1, Normal S2, No murmurs, PMI Normal, No rub noted Abdomen: Bowel Sounds Present, Soft, Non Tender, Non-Distended, No hernias noted Extremities: No clubbing, No cyanosis, No edema, Capillary Refill Less than 3 Seconds Skin: No rashes, No breakdown Musculoskeletal: No Tenderness to Palpation of Joints or Extremities Neurological: Cranial nerves II-XII grossly intact, Neuro grossly intact Psych/Mental Status: Appropriate, Impulsive, Manic Laboratory Results 04/13/19 19:24: Urine Color Yellow, Urine Clarity Clear, Urine pH 6.0, Ur Specific Energy 1.015, Urine Protein Negative, Urine Glucose (UA) Normal, Urine Ketones Negative, Urine Occult Blood Negative, Urine Nitrite Negative, Urine Bilirubin Negative, Urine Urobilinogen Normal, Ur Leukocyte Esterase 25 H, Urine RBC 0 SEEN, Urine WBC 0 SEEN, Ur Squamous Epith Cells 0-5 SEEN, Urine Bacteria 0 SEEN, Urine Mucus 0 SEEN 04/13/19 19:24: Urine Opiates Screen NEGATIVE, Urine Methadone Screen NEGATIVE, Ur Barbiturates Screen NEGATIVE, Ur Phencyclidine Scrn NEGATIVE, Ur Amphetamines Screen NEGATIVE, U Methamphetamin-MDMA NEGATIVE, U Benzodiazepines Scrn NEGATIVE, Urine Cocaine Screen NEGATIVE, U Cannabinoids Screen NEGATIVE, Ur Drug Screen Comment 04/13/19 19:27: WBC 14.6 H, RBC 5.81, Hgb 17.2 H, Hct 51.0, MCV 87.8, MCH 29.6, MCHC 33.7, RDW Std Deviation 39.3, RDW Coeff of Halley 12.1, Plt Count 254, MPV 10.9, Immature Gran % (Auto) 0.500, Neut % (Auto) 83.2 H, Lymph % (Auto) 11.3 L, Perkins % (Auto) 4.9, Eos % (Auto) 0.0, Baso % (Auto) 0.1, Absolute Neuts (auto) 12.1 H, Absolute Lymphs (auto) 1.64, Nucleated RBC % 0 04/13/19 19:27: Sodium 136, Potassium 4.1, Chloride 104, Carbon Dioxide 26.0, Anion Gap 6, BUN 20 H, Creatinine 1.24, Estim Creat Clear Calc 70.85, Est GFR (MDRD) Af Amer 77, Est GFR (MDRD) Non-Af 64, BUN/Creatinine Ratio 16.1, Glucose 137 H, Calcium 9.0 04/13/19 19:27: Magnesium 2.7 H 04/13/19 23:08: POC Glucose 115 H 04/14/19 05:50: WBC 13.7 H, RBC 5.58, Hgb 16.2, Hct 49.4, MCV 88.5, MCH 29.0, MCHC 32.8, RDW Std Deviation 39.8, RDW Coeff of Halley 12.2, Plt Count 228, MPV 10.9, Immature Gran % (Auto) 0.400, Neut % (Auto) 69.0, Lymph % (Auto) 20.9, Perkins % (Auto) 9.2, Eos % (Auto) 0.1, Baso % (Auto) 0.4, Absolute Neuts (auto) 9.5 H, Absolute Lymphs (auto) 2.87, Nucleated RBC % 0 04/14/19 05:50: Sodium 138, Potassium 4.0, Chloride 106, Carbon Dioxide 26.0, Anion Gap 6, BUN 19 H, Creatinine 1.09, Estim Creat Clear Calc 80.60, Est GFR (MDRD) Af Amer 90, Est GFR (MDRD) Non-Af 74, BUN/Creatinine Ratio 17.4, Glucose 107 H, Calcium 8.3 L, Total Bilirubin 0.80, AST 20, ALT 57, Alkaline Phosphatase 82, Total Protein 6.2 L, Albumin 3.0 L, Globulin 3.2, Albumin/Globulin Ratio 0.9, TSH 0.82 04/14/19 05:50: Hemoglobin A1c 5.9 04/14/19 06:34: POC Glucose 111 H 04/14/19 11:56: POC Glucose 147 H 04/14/19 16:50: POC Glucose 125 H Current Medications Acetaminophen (Tylenol) 650 mg PO Q6H PRN PRN PRN Reason: Pain Score 1-10/Temp > 100.7 F Last Admin: 04/14/19 07:17 Dose: 650 mg Documented by: Al Hydroxide/Mg Hydroxide (Mylanta Ii) 30 ml PO Q6H PRN PRN PRN Reason: Gastric Burning Enoxaparin Sodium (Lovenox) 40 mg SC DAILY [facility] Last Admin: 04/14/19 11:16 Dose: 40 mg Documented by: Famotidine (Pepcid) 20 mg PO BID [facility] Last Admin: 04/14/19 11:16 Dose: 20 mg Documented by: Gabapentin (Neurontin) 300 mg PO TIDCM [facility] Glucagon () 1 mg IM .X1 PRN PRN Reason: Hypoglycemia Ibuprofen (Motrin) 400 mg PO Q4H PRN PRN PRN Reason: Pain Score 1-3/Temp > 100.7 F Last Admin: 04/14/19 11:28 Dose: 400 mg Documented by: Magnesium Hydroxide (Milk Of Magnesia) 15 ml PO DAILY PRN PRN PRN Reason: Constipation Last Admin: 04/14/19 00:26 Dose: 15 ml Documented by: Nicotine (Nicoderm Cq (Pbkc)) 21 mg TRANSDERM. DAILY [facility] Last Admin: 04/14/19 11:16 Dose: 21 mg Documented by: Ondansetron HCl (Zofran) 4 mg IV Q8H PRN PRN PRN Reason: NAUSEA/VOMITING Last Admin: 04/14/19 07:17 Dose: 4 mg Documented by: Sodium Chloride () 10 - 40 ml IV UD PRN PRN Reason: SALINE FLUSH Last Admin: 04/14/19 07:17 Dose: 10 ml Documented by: Medical Necessity - Tobacco Use Smoking Status: Current every day smoker Tobacco Use: Cigarettes Assessment/Plan All Active Problems Failure to thrive (Acute) #1 generalized debility-this examiner is unsure what the patient's performance status is at this time, PT and OT are seeing the patient, the plan is for the patient to at least go short-term to an extended care facility for rehab services. I emphasized that I would not be writing for narcotics for the patient, I have increased the patient's Neurontin-according to the patient's PCP, he has been on Neurontin before for his chronic foot pain. #2 neuropathy of the feet-probably secondary to type 2 diabetes-patient does not appear to have elevated blood sugars at this time, again I have increased the patient's gabapentin today #3 chronic pain syndrome-probably secondary to peripheral neuropathy, I emphasi zed to the patient that he should follow-up with pain management as an outpatient #4 BPH Code Visit OBSV E&M: 67642 Subsequent observation care L2
[2019-04-14] MEDS: Gabapentin 300 MG Capsule PO (18:45)
[2019-04-14 23:08] VITALS: BP 134/79; PULSE 67; RESP 18; TEMP 36.8; O2SAT 97
[2019-04-15] MEDS: Magnesium Hydroxide 30 ML UDC 15 ML PO (02:40)
[2019-04-15 03:30] VITALS: BP 119/84; PULSE 97; RESP 18; TEMP 36.7; O2SAT 98
--- NOTE | 2019-04-15 03:45 | NURSING ---
pt reporting he no longer wishes to go to a custodial. he reports he needs to get home, find a new apartment and move around and not lay in bed. pt states i gotta get out of here today
[2019-04-15] MEDS: Ibuprofen 400 MG Tablet PO (05:33)
[2019-04-15] MEDS: 0.9% Saline Lock 10 ML Syringe IV (05:36)
[2019-04-15] MEDS: Gabapentin 300 MG Capsule PO ×2 (07:34→12:32)
[2019-04-15 09:07] VITALS: BP 137/81; PULSE 74; RESP 18; TEMP 37.1; O2SAT 98
[2019-04-15] MEDS: Famotidine 20 MG Tablet PO (10:51)
[2019-04-15] MEDS: Enoxaparin 40 MG/0.4 ML Syringe SC (10:51)
--- NOTE | 2019-04-15 11:44 | DCINST_ITS ---
- Discharge Diagnoses Current Active Problems: Current Active and Chronic Problems Failure to thrive (Acute) History of opioid abuse (Chronic) Chronic pain syndrome (Chronic) Neuropathy (Chronic) Gastroparesis due to DM (Chronic) Diabetes mellitus, type II (Chronic) BPH (benign prostatic hyperplasia) (Chronic) Tobacco use (Chronic) You will use the following diet at home:: No restrictions Your food should be the consistency of: Regular Your liquids should be the consistency of: Regular/Thin Discharge Activity: Return to Normal Activity Weight Bearing Status: Full weight bearing Allergies/Adverse Reactions: Allergies No Known Allergies Allergy (Verified 04/13/19 18:22) Medications to take at Discharge Tamsulosin HCl [Flomax] 0.4 mg PO BID 10/04/15 Gabapentin [Neurontin] 300 mg PO TIDCM #90 cap 04/15/19 The following prescriptions were given: Gabapentin [Neurontin] 300 mg PO TIDCM #90 cap Transmission Status: Pending to [facility] [facility] Primary Care Physician: Nelson Xiong DO [Primary Care Provider] - Please follow up with your Primary Care Physician in: NEXT WEEK Test Results: Test results from this visit will be discussed in further detail at your follow- up appointment, if applicable.
--- NOTE | 2019-04-15 12:14 | CASEMGMT ---
BOO FRAGOSO updated by SW that patient is discharging home and will need a walker. BOO FRAGOSO in to provided list of DME agencies. Patient would like [facility]. BOO FRAGOSO received script for [facility]. Referral sent to [facility] and arranged for delivery prior to discharge. Patient states that he would like assistance with cooking and cleaning, SW updated and resources given for [facility].
--- NOTE | 2019-04-15 12:25 | CASEMGMT ---
Social Work Note Pt is now stating he is going home. JASMEET updated that pt would like aides to come in to his apartment to assist with cooking and cleaning. JASMEET provided pt with [facility] brochure and pt agreeable to this worker sending referral to [facility]. JASMEET placed a call to Liz at [facility] and updated her that pt has now decided to return home at discharge. JASMEET faxed referral to [facility]. Plan: Home Adrianna Rice AERONAUTICAL ENGINEERING OFFICER, STAINLESS STEEL FINISHER
[2019-04-15 14:33] VITALS: O2SAT 98
[2019-04-15 15:09] VITALS: BP 124/60; PULSE 70; RESP 18; TEMP 36.9; O2SAT 98
--- NOTE | 2019-04-17 10:56 | PCM.DC.SUM ---
Discharge Date and Diagnosis Date of Admission: 04/13/19 Date of Discharge: 04/15/19 - Primary Discharge Diagnosis #1 generalized debility #2 neuropathy of the feet-probably secondary to type 2 diabetes #3 chronic pain syndrome-probably secondary to peripheral neuropathy #4 BPH #5 personality disorder - Secondary Discharge Diagnosis Chronic Problems History of opioid abuse (Chronic) Chronic pain syndrome (Chronic) Neuropathy (Chronic) Gastroparesis due to DM (Chronic) Diabetes mellitus, type II (Chronic) BPH (benign prostatic hyperplasia) (Chronic) Tobacco use (Chronic) Hospital Course and Treatment Operations: None Procedures: None Summary of Care Provided: The patient is a 58 year old M who was seen in the emergency room at [facility] after requesting admission to the hospital in order to go to a correction facility for ongoing care. Patient had been released from [facility] after going through opiate detox-patient had been on chronic OxyIR as an outpatient for neuropathic pain in his feet, he had overused the opiates and had run out of opiates and went to [facility] for evaluation at [facility]. He was transferred to the detox unit at [facility] in [place] for detox services and was released 3 days later, at the time of release, patient requested the cable maintainer to take him to [facility] for admission. Labs were obtained on the patient and showed an elevated white blood cell count of 14.6, chemistry panel was unremarkable except for BUN of 20 and a glucose of 137, tox screen was negative. Patient was placed in observation status on MedSur 3, he was seen by PT and OT but it was noted that he required minimal assistance for ambulation. After talking with the patient, it appeared apparent that the patient had a psychological issue perhaps a personality disorder. Patient had poor understanding of his chronic pain syndrome and blamed various physicians for not helping him. Patient did not appear in severe pain despite being off his opioids-evidently patient has been taking a large dose of opioids which had been prescribed on a daily basis. Patient received no opioids while in the hospital-I gave him gabapentin for neuropathic pain. On 04/15/2019, patient requested discharge to home stating that he had been given a letter of infection by his landlord and he wanted to talk with his landlord in person about this, he did not feel he wanted to go a longterm any longer. I talked with the patient's PCP by phone and went over his medical course while in the hospital. On 04/15/2019, patient was seen and examined: On examination he appeared in good health and spirits. Vital signs as documented. Skin warm and dry and without overt rashes. Neck without JVD. Lungs clear. Heart exam notable for regular rhythm, normal sounds and absence of murmurs, rubs or gallops. Abdomen unremarkable and without evidence of organomegaly, masses, or abdominal aortic enlargement. Extremities nonedematous. Neuro: Cranial nerves II through XII are grossly intact, no focal motor deficits were noted, sensation to light touch and pinprick intact. Psych: Patient is alert and oriented x3, he does not appear anxious or depressed Patient was discharged home in stable condition on 04/15/2019 - Physical Exam Vitals/I&O's: Vital Signs Temp Pulse Resp BP Pulse Ox 98.5 F 70 18 124/60 H 98 04/15/19 15:09 04/15/19 15:09 04/15/19 15:09 04/15/19 15:09 04/15/19 15:09 Oxygen Delivery Method Room Air Weight: 96 kg Body Mass Index (BMI) 29.5 Intake and Output for Last 24 Hours 04/15/19 04/16/19 04/17/19 23:59 23:59 23:59 Intake Total 2130 / 2130 Output Total 1000 / 1000 Balance 1130 / 1130 Discharge Activity: Return to Normal Activity Weight Bearing Status: Full weight bearing Home Medications: Medications to take at Discharge Tamsulosin HCl [Flomax] 0.4 mg PO BID 10/04/15 Gabapentin [Neurontin] 300 mg PO TIDCM #90 cap 04/15/19 Following Prescrptions Were Given to Patient: Gabapentin [Neurontin] 300 mg PO TIDCM #90 cap Transmission Status: Received by [facility] [facility] Primary Care Physician: Nelson Xiong DO [Primary Care Provider] - Please follow up with your Primary Care Physician in: NEXT WEEK Disposition: Home Minutes spent on discharge:: 30 Patient Condition:: Stable Medical Necessity - Tobacco Use Smoking Status: Current every day smoker Tobacco Use: Cigarettes Meaningful Use Info Meaningful Use Diagnoses (Choose all that apply): None applicable Code Visit OBSV E&M: 05657 Observation care discharge
== END 2019-04-15 15:07 | disposition home or self-care (01) ==
LOC: ED 18:46 → MS3 21:34
PROVIDERS: Admitting Provider Family Medicine; Emergency Provider Emergency Medicine; PCP Family Medicine; Referring Provider Family Medicine; Visit Provider Internal Medicine
DX: R53.81 Other malaise (principal); N40.0 Benign prostatic hyperplasia without lower urinary tract symptoms; E78.5 Hyperlipidemia, unspecified; E11.43 Type 2 diabetes mellitus with diabetic autonomic (poly)neuropathy; K31.84 Gastroparesis; G89.4 Chronic pain syndrome; F17.210 Nicotine dependence, cigarettes, uncomplicated; R62.7 Adult failure to thrive; E66.9 Obesity, unspecified; E11.40 Type 2 diabetes mellitus with diabetic neuropathy, unspecified; F11.11 Opioid abuse, in remission; Z68.30 Body mass index [BMI] 30.0-30.9, adult; Z71.3 Dietary counseling and surveillance; Z79.899 Other long term (current) drug therapy
CPT/HCPCS: 36415; 80048; 80053; 80307; 81001; 82962; 83036; 83735; 84443; 85025; 96361; 96372; 96374; 97162; 97166; 97802; 99218; 99284; 99406; J7030; A4216; G0378; J2405

== ENCOUNTER → 2019-06-03 | Outpatient (CLI) | payer MEDICARE, SELFPAY ==
[2019-04-13 22:07] VITALS: BMI 29.5
== END | disposition home or self-care (01) ==
LOC: BFHLAB 16:26
PROVIDERS: PCP Family Medicine; Visit Provider Family Medicine
DX: G89.4 Chronic pain syndrome (principal); Z51.81 Encounter for therapeutic drug level monitoring
CPT/HCPCS: 36415

== ENCOUNTER → 2020-03-01 14:13 | Outpatient (CLI) | payer MEDICARE, SELFPAY ==
[2019-04-13 22:07] VITALS: BMI 29.5
[2020-03-01 17:38] LABS: Absolute Lymphocyte Count 2.11 X10^3/uL (0.83-4.51); Absolute Neutrophil Count 4.7 X10^3/uL (2.0-7.7); Basophil% 1.2 % (0-1); Eosinophil# 0.24 X10^3/uL; Eosinophils% 2.9 % (0-5); Hematocrit 47.7 % (40-54); Lymphocyte # 2.11 X10^3/ul (4.0); Lymphocyte % 25.3 % (19-41); Mean Corp Hgb Conc 31.4 g/dL (32-36); Mean Corpuscular Hgb 29.4 pg (27.0-32.0); Mean Corpuscular Volume 93.5 fL (80-94); Mean Platelet Vol. 11.2 fl (6.2-12.0); Monocyte# 1.16 X10^3/uL; Monocyte% 13.9 % (0-10); NRBC Flagged by Analyzer 0 % (0-5); Neutrophil # 4.72 X10^3/uL (2.7-7.7); Neutrophil % 56.5 % (47-70); Platelet Count 195 K/mm3 (150-450); RBC Distribution Width CV 12.3 % (11.6-14.6); RBC Distribution Width SD 42.7 fl (35.1-43.9); White Blood Count 8.4 K/mm3 (4.4-11.0)
[2020-03-01 18:05] LABS: Hemoglobin A1c 5.6 % (3.8-5.6)
[2020-03-01 18:08] LABS: ALB/GLOB Ratio 0.9 RATIO (0.9-2.4); AST(SGOT) 20 U/L (15-37); Alanine Aminotransfer ALT/SGPT 32 U/L (16-61); Albumin, Serum 3.7 g/dL (3.2-5.0); Alkaline Phosphatase 117 U/L (45-117); Anion Gap 7 (5-15); BUN 19 mg/dL (7-18); BUN/Creat Ratio 13.4 RATIO (10-20); Calcium,Total 8.9 mg/dL (8.5-10.1); Chloride 103 mmol/L (98-107); Creatinine, Serum 1.42 mg/dL (0.70-1.30); EST Glomerular Filtration Rate 55 mL/min (>60); Est Glom Filt Rate - Afr Amer 66 mL/min (>60); Glucose 85 mg/dL (74-106); Potassium 3.6 mmol/L (3.5-5.1); Protein, Total 7.7 g/dL (6.4-8.2); Sodium Level 139 mmol/L (136-145); Thyroid Stim Hormone (TSH) 2.46 uIU/mL (0.358-3.74)
[2020-03-05 14:08] LABS: ANTINUCLEAR ANTIBODIES DIRECT Positive (Negative); Anti-Centromere B Ab <0.2 AI (0.0-0.9); Anti-Chromatin <0.2 AI (0.0-0.9); Anti-Jo <0.2 AI (0.0-0.9); Anti-Scleroderma-70 AB 0.5 AI (0.0-0.9); RNP Ab 4.9 AI (0.0-0.9); SJOGREN'S Anti-SS-A test < 0.2 AI (0.0-0.9); SJOGREN'S Anti-SS-B test < 0.2 AI (0.0-0.9); Smith Ab <0.2 AI (0.0-0.9)
[2020-03-05 15:33] LABS: Anti-dsDNA Ab 2 IU/mL (0-9)
== END ==
PROVIDERS: PCP Family Medicine; Visit Provider Family Medicine
DX: G62.9 Polyneuropathy, unspecified (principal); M35.1 Other overlap syndromes; E11.9 Type 2 diabetes mellitus without complications; R63.5 Abnormal weight gain
CPT/HCPCS: 36415; 80053; 83036; 84443; 85025; 86038; 86140; 86225; 86235

== ENCOUNTER → 2020-05-17 16:24 | Outpatient (CLI) | payer MEDICARE, MEDICAID, SELFPAY ==
[2019-04-13 22:07] VITALS: BMI 29.5
[2020-05-17 17:54] LABS: Absolute Neutrophil Count 5.2 X10^3/uL (2.0-7.7); Basophil# 0.08 X10^3/uL; Basophil% 0.9 % (0-1); Eosinophil# 0.23 X10^3/uL; Eosinophils% 2.6 % (0-5); Hematocrit 47.8 % (40-54); Hemoglobin 14.9 g/dL (13.0-16.5); Lymphocyte % 26.1 % (19-41); Mean Corp Hgb Conc 31.2 g/dL (32-36); Mean Platelet Vol. 10.6 fl (6.2-12.0); Monocyte% 11.4 % (0-10); NRBC Flagged by Analyzer 0 % (0-5); Neutrophil # 5.17 X10^3/uL (2.7-7.7); Neutrophil % 58.7 % (47-70); Platelet Count 215 K/mm3 (150-450); RBC Distribution Width CV 12.5 % (11.6-14.6); RBC Distribution Width SD 42.9 fl (35.1-43.9); Red Blood Count 5.14 M/mm3 (4.6-6.2); White Blood Count 8.8 K/mm3 (4.4-11.0)
[2020-05-17 18:14] LABS: Hemoglobin A1c 5.7 % (3.8-5.6)
[2020-05-17 18:41] LABS: Vitamin B12 751 pg/mL (211-911); Vitamin D,25 Hydroxy 13.9 ng/mL
[2020-05-17 18:46] LABS: ALB/GLOB Ratio 0.9 RATIO (0.9-2.4); AST(SGOT) 18 U/L (15-37); Alanine Aminotransfer ALT/SGPT 29 U/L (16-61); Albumin, Serum 3.6 g/dL (3.2-5.0); Alkaline Phosphatase 150 U/L (45-117); Anion Gap 5 (5-15); BUN 16 mg/dL (7-18); BUN/Creat Ratio 12.6 RATIO (10-20); Calcium,Total 8.9 mg/dL (8.5-10.1); Chloride 101 mmol/L (98-107); Creatinine, Serum 1.27 mg/dL (0.70-1.30); EST Glomerular Filtration Rate 62 mL/min (>60); Est Glom Filt Rate - Afr Amer 75 mL/min (>60); Globulin 4.1 g/dL (2.2-4.2); Glucose 101 mg/dL (74-106); Potassium 3.8 mmol/L (3.5-5.1); Protein, Total 7.7 g/dL (6.4-8.2); Sodium Level 138 mmol/L (136-145); Thyroid Stim Hormone (TSH) 3.43 uIU/mL (0.358-3.74)
== END ==
PROVIDERS: PCP Family Medicine; Visit Provider Family Medicine
DX: E11.42 Type 2 diabetes mellitus with diabetic polyneuropathy (principal); R53.83 Other fatigue
CPT/HCPCS: 36415; 80053; 82306; 82607; 83036; 84443; 85025

== ENCOUNTER 2020-12-02 05:50 | Emergency (ER) | payer MEDICARE, SELFPAY ==
[2020-12-02 05:54] VITALS: BP 139/71; PULSE 82; RESP 16; TEMP 36; O2SAT 95; BMI 34.7
[2020-12-02 05:57] VITALS: BP 139/71; PULSE 82; RESP 16; TEMP 36; O2SAT 95
--- NOTE | 2020-12-02 06:03 | EX.ED.GUMALE ---
HPI History of Present Illness Chief Complaint: Complaint Informant: patient Narrative Narrative: 2-day history dysuria, hematuria, urine frequency. No fevers or back pain. No vomiting. Tobacco history. Records notes BPH history, however he states he was told is not enlarged. Noted medicine is tamsulosin 0.8 mg twice daily. History of kidney stones 20 years ago. States this does not feel similar. He takes baby aspirin's daily. No TIA or cardiac stent history. Prior similar symptoms: Yes PFSH PFSH Home Medications tamsulosin 0.8 mg PO BID 10/04/15 [History Last Taken 04/06/19] amlodipine 5 mg PO DAILY 12/02/20 [History Last Taken Unknown] aspirin 81 mg PO DAILY 12/02/20 [History Last Taken Unknown] cephalexin 500 mg PO Q12 #14 cap 12/02/20 [Rx Last Taken Unknown] fluoxetine 40 mg PO BID 12/02/20 [History Last Taken Unknown] oxycodone 30 mg PO Q6H PRN 12/02/20 [History Last Taken Unknown] sildenafil 20 mg PO TID 12/02/20 [History Last Taken Unknown] Allergy/AdvReac Type Severity Reaction Status Date / Time No Known Allergies Allergy Verified 04/13/19 18:22 Social History Smoking Status: Current every day smoker tobacco type: cigarettes ROS ROS ED Constitutional Constitutional ED: Denies chills, fever(s) or sweats Eyes Eyes: Denies change in vision ENT ENT ED: Denies dysphagia or sore throat Cardiovascular Cardiovascular: Denies chest pain, leg edema, palpitations or racing heartbeat Respiratory/Chest Respiratory/Chest: Denies cough, dyspnea or dyspnea on exertion Gastrointestinal Gastrointestinal: Denies abdominal pain, diarrhea, nausea or vomiting Genitourinary Genitourinary ED: Reports dysuria, hematuria and urinary frequency Musculoskeletal Musculoskeletal: Denies back pain, extremity pain or neck pain Integumentary Denies rash or wounds Neurologic Neurologic: Denies headache(s), paresthesias or weakness EXAM Physical Exam Const Vital Signs: 12/02/20 05:54 12/02/20 05:57 Temperature 96.8 F L 96.8 F L Temperature Source Temporal Temporal Pulse Rate 82 82 Respiratory Rate 16 16 Blood Pressure 139/71 H 139/71 H Blood Pressure Mean 93 93 Pulse Ox 95 95 Oxygen Delivery Method Room Air Room Air Positive well nourished and well developed General Appearance ED: well developed and NAD HEENT Reports moist mucous membranes normocephalic and atraumatic Eyes PERRL, EOMs intact bilaterally and conjunctivae normal General Eye ED: Yes normal appearance of both eyes Neck no lymphadenopathy and supple General: Negative for tenderness Chest Wall Chest: Negative for tenderness Resp normal respiratory effort and normal air movement Effort and Inspection: symmetric chest movement; Negative for respiratory distress Cardio regular rate, regular rhythm and no murmurs Peripheral Pulses: pulses 2+ throughout GI normal to inspection, nondistended, normoactive bowel sounds, non-tender and non-distended Palpation: Negative for guarding or rebound tenderness present no CVA tenderness Back/Spine no CVA tenderness and no thoracic nor lumbar tenderness Extremity normal to inspection General Extremety ED: Negative for edema or tenderness General Extremity: Negative for edema Neuro oriented x3 and no sensory deficits noted Sensorium / Orientation: awake and alert Skin no rashes or lesions noted and no wounds MDM MDM MDM Narrative Medical decision making narrative: Patient presents dysuria hematuria. History of BPH. Urine sent noted hematuria with leukocytes and bacteria. Culture sent. Started on Keflex. With his reported frequency, bladder scan performed after urination noted residual 28 mL. Patient given follow-up with urology due to hematuria with tobacco history. Discussed with patient holding his aspirin therapy with hematuria. He has no coronary stents or TIA histories that require continuous use at this time. Patient understands and agrees with plan. All questions were answered. Lab Data Attestation: I reviewed the patient's lab results. Labs: Laboratory Results - last 24 hr 12/02/20 05:55 Urine Color Yellow Urine Clarity Sl. Cloudy Urine pH 5.0 Ur Specific [place] 1.020 Urine Protein 15 H Urine Glucose (UA) Normal Urine Ketones Negative Urine Occult Blood 250 H Urine Nitrite Negative Urine Bilirubin Negative Urine Urobilinogen Normal Ur Leukocyte Esterase 25 H Urine RBC 50-100 SEEN Urine WBC 0-5 SEEN Ur Squamous Epith Cells 0-5 SEEN Urine Bacteria 1+ Urine Mucus 0 SEEN Discharge Plan Triage Chief Complaint: Complaint ED Provider: Jim Hazel Dx/Rx/DC Orders Clinical Impression: Urinary tract infection with hematuria, History of BPH Instructions: ED Hematuria, ED Bladder Infection, Male (Adult) Prescriptions: New cephalexin [cephalexin] 500 MG capsule 500 mg PO Q12 Qty: 14 RF: 0 No Action tamsulosin 0.4 MG capsule 0.8 mg PO BID RF: 0 fluoxetine 40 mg Capsule 40 mg PO BID RF: 0 amlodipine 5 mg Tablet 5 mg PO DAILY RF: 0 sildenafil 25 mg Tablet 20 mg PO TID RF: 0 oxycodone 30 mg Tablet 30 mg PO Q6H PRN (Reason: Pain) RF: 0 aspirin 81 mg Capsule 81 mg PO DAILY RF: 0 Primary Care Provider: Nelson Xiong Referrals: Abel Hathaway MD [STAFF PHYSICIAN] - 1-2 Weeks Nelson Xiong DO [Primary Care Provider] - Activity Restrictions/Additional Instructions: Hold aspirin until bleeding improves. Take antibiotic as prescribed. Follow-up with urology for outpatient reevaluation. Disposition Disposition: Home, Self Care
[2020-12-02 06:09] LABS: Mucous, Urine 0 SEEN /hpf (<or=2+)
[2020-12-02 06:10] LABS: Color, Urine Yellow (Yellow); Glucose, Dipstick Normal (Normal); Ketone-Dipstick Negative (Negative); Leukocyte Esterase-Dipstick 25 /ul (Negative); Nitrite-Dipstick Negative (Negative); Occult Blood-Urine 250 /ul (Negative); Protein-Dipstick 15 mg/dl (Negative); Urine Bilirubin Dipstick Negative (Negative); Urine Clarity Sl. Cloudy (Clear); Urine Urobilinogen Normal (Normal)
[2020-12-02 06:23] LABS: Bacteria 1+ /hpf (None Seen); Red Blood Cells-Urine 50-100 SEEN /hpf (0-5); Squamous Epithelial Cells - UA 0-5 SEEN /hpf (0-5); White Blood Cells 0-5 SEEN /hpf (0-5)
[2020-12-02] MEDS: Cephalexin 250 MG Capsule 500 MG PO (06:39)
== END 2020-12-02 06:50 | disposition home or self-care (01) ==
LOC: ED 06:48
PROVIDERS: Emergency Provider Emergency Medicine; PCP Family Medicine
DX: N39.0 Urinary tract infection, site not specified (principal); N40.0 Benign prostatic hyperplasia without lower urinary tract symptoms; R31.9 Hematuria, unspecified; F17.210 Nicotine dependence, cigarettes, uncomplicated
CPT/HCPCS: 81001; 87086; 87088; 99283

== ENCOUNTER 2020-12-15 04:49 | Emergency (ER) | payer MEDICARE, MEDICAID, SELFPAY ==
[2020-12-15 04:51] VITALS: BP 128/74; PULSE 79; RESP 16; TEMP 36.1; O2SAT 95; BMI 32.3
[2020-12-15 05:42] LABS: Mucous, Urine 0 SEEN /hpf (<or=2+)
[2020-12-15 05:43] LABS: Color, Urine Yellow (Yellow); Glucose, Dipstick Normal (Normal); Ketone-Dipstick Negative (Negative); Leukocyte Esterase-Dipstick 25 /ul (Negative); Nitrite-Dipstick Negative (Negative); Occult Blood-Urine 250 /ul (Negative); Protein-Dipstick 15 mg/dl (Negative); Specific Gravity, Urine 1.015 (1.002-1.030); Urine Bilirubin Dipstick Negative (Negative); Urine Clarity Clear (Clear); Urine Urobilinogen Normal (Normal)
--- NOTE | 2020-12-15 05:50 | CT_ITS ---
STUDY: CT ABDOMEN AND PELVIS WITHOUT CONTRAST REASON FOR EXAM: Male, 60 years old. Flank pain RADIATION DOSAGE (If Supplied By Facility): CTDIvol = ( 18.84 ) mGy, DLP = ( 936.58 ) mGycm TECHNIQUE: Transaxial images were obtained from the dome of the diaphragm to the symphysis pubis without oral contrast, and without intravenous contrast. Sagittal and coronal images were reconstructed. Individualized dose optimization techniques were used for this CT. COMPARISON: 10/15/2011 FINDINGS: The visualized lung bases are unremarkable. The visualized portions of the heart are within normal limits. Normal liver. There are multiple gallstones. Normal spleen. Normal pancreas. Normal bilateral adrenal glands. Normal right kidney. Normal left kidney. Normal visualized stomach. Normal small intestine. Normal colon. There is non-visualization of the appendix. Normal abdominal aorta. Normal inferior vena cava. Normal retroperitoneum. Normal urinary bladder. There are prostatic calcifications. There is a small umbilical hernia containing fat. Normal osseous structures. CT/Abdomen/Pelvis without Cont IMPRESSION: Normal unenhanced CT of the abdomen and pelvis. Electronically Signed: Hugo Torres MD at 6:57 EDT Tel , Service support ,
[2020-12-15 05:55] LABS: Bacteria RARE /hpf (None Seen); Red Blood Cells-Urine 50-100 SEEN /hpf (0-5); Squamous Epithelial Cells - UA 0-5 SEEN /hpf (0-5); White Blood Cells 0-5 SEEN /hpf (0-5)
--- NOTE | 2020-12-15 07:33 | EDS_ITS ---
HPI History of Present Illness Chief Complaint: Complaint Informant: patient Onset/Context/Timing Onset: Days (10) Context: Gradual Onset Timing: Continuous Quality: Burning Location: Urethra Worsened by: Urination Relieved by: Keflex Narrative Narrative: Patient presents with hematuria that has been getting worse over the past 10 days. Patient states it has been constant. Patient was seen here for this. Patient had a questionable urinary tract infection at that time along with the hematuria. Patient was given a prescription for Keflex. Patient states his hematuria improved while on the Keflex. Patient states that he finished the Keflex yesterday and the hematuria returned. Patient admits to some dysuria. Patient states it is at the end of urination. Patient describes it as burning. Patient denies any fevers or chills. Patient denies any nausea or vomiting. Patient denies any back pain. [facility] Medical History (Updated 12/15/20 @ 07:[address] Ricky Dinero DO) BPH (benign prostatic hyperplasia) Hypertension Home Medications tamsulosin 0.8 mg PO BID 10/04/15 [History Last Taken 04/06/19] amlodipine 5 mg PO DAILY 12/02/20 [History Last Taken Unknown] aspirin 81 mg PO DAILY 12/02/20 [History Last Taken Unknown] fluoxetine 40 mg PO BID 12/02/20 [History Last Taken Unknown] oxycodone 30 mg PO Q6H PRN 12/02/20 [History Last Taken Unknown] sildenafil 20 mg PO TID 12/02/20 [History Last Taken Unknown] phenazopyridine [Pyridium] 200 mg PO TID PRN #6 tab 12/15/20 [Rx Last Taken Unknown] Allergy/AdvReac Type Severity Reaction Status Date / Time No Known Allergies Allergy Verified 12/15/20 04:50 Surgical History Status post ORIF of fracture of ankle Social History Smoking Status: Current every day smoker tobacco type: cigarettes ROS ROS ED Constitutional Constitutional ED: Denies chills or fever(s) Eyes Eyes: Denies blurry vision or change in vision ENT ENT ED: Denies rhinorrhea or sore throat Cardiovascular Cardiovascular: Denies chest pain or palpitations Respiratory/Chest Respiratory/Chest: Denies cough or dyspnea Gastrointestinal Gastrointestinal: Denies nausea or vomiting Genitourinary Genitourinary ED: Reports dysuria and hematuria Musculoskeletal Musculoskeletal: Denies back pain or neck pain Integumentary Denies abscess or rash Neurologic Neurologic: Denies headache(s) or weakness Allergic/Immunologic Allergic/Immunologic ED: Denies mouth swelling or urticaria EXAM Physical Exam Const Vital Signs: 12/15/20 04:51 Temperature 96.9 F L Temperature Source Temporal Pulse Rate 79 Respiratory Rate 16 Blood Pressure 128/74 H Blood Pressure Mean 92 Pulse Ox 95 Positive well nourished and well developed General Appearance ED: well developed HEENT Reports moist mucous membranes Neck supple and no JVD Resp normal respiratory effort and clear to auscultation bilaterally Cardio regular rate, regular rhythm and no murmurs GI normal to inspection, nondistended, normoactive bowel sounds and non-tender Palpation: soft Extremity normal to inspection General Extremety ED: Negative for edema or tenderness General Extremity: Negative for edema Neuro oriented x3, CN's II-XII intact bilaterally and no sensory deficits noted Sensorium / Orientation: alert Motor Exam: strength 5/5 throughout Psych mental status grossly normal Skin no rashes or lesions noted MDM MDM MDM Narrative Medical decision making narrative: CT scan of the abdomen and pelvis was obtained. There is no acute intra-abdominal abnormality. This was interpreted by the radiologist and reviewed by myself. Urinalysis shows occult blood 250 with 50-100 red blood cells. There is no evidence of urinary tract infection. Patient was instructed to follow-up with his urologist and primary care in 5 to 7 days. Patient understood and was agreeable with the plan. All questions were answered. Lab Data Labs: Laboratory Results - last 24 hr 12/15/20 05:32 Urine Color Yellow Urine Clarity Clear Urine pH 6.0 Ur Specific [place] 1.015 Urine Protein 15 H Urine Glucose (UA) Normal Urine Ketones Negative Urine Occult Blood 250 H Urine Nitrite Negative Urine Bilirubin Negative Urine Urobilinogen Normal Ur Leukocyte Esterase 25 H Urine RBC 50-100 SEEN Urine WBC 0-5 SEEN Ur Squamous Epith Cells 0-5 SEEN Urine Bacteria RARE Urine Mucus 0 SEEN Radiography Diagnostic Testing: Radiology Impression Abdomen/Pelvis CT 12/15/20 05:50 IMPRESSION: Normal unenhanced CT of the abdomen and pelvis. Electronically Signed: Hugo Torres MD at 6:57 EDT Tel , Service support , Discharge Plan Triage Chief Complaint: Complaint ED Provider: Ricky Dinero Dx/Rx/DC Orders Clinical Impression: Hematuria Instructions: ED Hematuria Prescriptions: New phenazopyridine [Pyridium] 200 MG tablet 200 mg PO TID PRN (Reason: pain) Qty: 6 RF: 0 No Action tamsulosin 0.4 MG capsule 0.8 mg PO BID RF: 0 fluoxetine 40 mg Capsule 40 mg PO BID RF: 0 amlodipine 5 mg Tablet 5 mg PO DAILY RF: 0 sildenafil 25 mg Tablet 20 mg PO TID RF: 0 oxycodone 30 mg Tablet 30 mg PO Q6H PRN (Reason: Pain) RF: 0 aspirin 81 mg Capsule 81 mg PO DAILY RF: 0 Primary Care Provider: Nelson Xiong Referrals: Abel Hathaway MD [STAFF PHYSICIAN] - 3-5 Days Nelson Xiong DO [Primary Care Provider] - 3-5 Days Disposition Disposition: Home, Self Care Discharge Date/Time: 12/15/20 07:55
== END 2020-12-15 07:55 | disposition home or self-care (01) ==
PROVIDERS: Emergency Provider Emergency Medicine; PCP Family Medicine
DX: R31.9 Hematuria, unspecified (principal); F17.210 Nicotine dependence, cigarettes, uncomplicated; I10 Essential (primary) hypertension; N40.0 Benign prostatic hyperplasia without lower urinary tract symptoms; Z79.82 Long term (current) use of aspirin; Z79.899 Other long term (current) drug therapy
CPT/HCPCS: 74176; 81001; 99282

== ENCOUNTER 2021-06-18 13:55 | Outpatient (CLI) | payer MEDICARE, MEDICAID, SELFPAY | END 2021-06-18 23:59 | disposition home or self-care (01) | LOC: SL 13:55 | PROVIDERS: PCP Family Medicine; Visit Provider Family Medicine | DX: G47.10 Hypersomnia, unspecified (principal); R53.83 Other fatigue | CPT/HCPCS: 95806 ==

== ENCOUNTER 2021-06-24 16:11 | Outpatient (CLI) | payer MEDICARE, MEDICAID, SELFPAY ==
[2021-06-24 16:46] LABS: Absolute Lymphocyte Count 1.82 X10^3/uL (0.83-4.51); Absolute Neutrophil Count 7.5 X10^3/uL (2.0-7.7); Basophil# 0.07 X10^3/uL; Basophil% 0.7 % (0-1); Eosinophil# 0.26 X10^3/uL; Eosinophils% 2.4 % (0-5); Hematocrit 41.2 % (40-54); Hemoglobin 13.5 g/dL (13.0-16.5); Lymphocyte # 1.82 X10^3/ul (0.83-4.51); Lymphocyte % 16.9 % (19-41); Mean Corp Hgb Conc 32.8 g/dL (32-36); Mean Corpuscular Hgb 30.2 pg (27.0-32.0); Mean Corpuscular Volume 92.2 fL (80-94); Mean Platelet Vol. 10.2 fl (6.2-12.0); Monocyte% 9.3 % (0-10); NRBC Flagged by Analyzer 0 % (0-5); Neutrophil # 7.53 X10^3/uL (2.7-7.7); Platelet Count 203 K/mm3 (150-450); RBC Distribution Width CV 13.2 % (11.6-14.6); RBC Distribution Width SD 44.6 fl (35.1-43.9); Red Blood Count 4.47 M/mm3 (4.6-6.2); White Blood Count 10.8 K/mm3 (4.4-11.0)
[2021-06-24 16:58] LABS: Hemoglobin A1c 5.8 % (3.8-5.6)
[2021-06-24 17:02] LABS: Erythrocyte Sedimentation Rate 20 mm/hr (0-20)
[2021-06-24 17:26] LABS: ALB/GLOB Ratio 0.8 RATIO (0.9-2.4); AST(SGOT) 19 U/L (15-37); Alanine Aminotransfer ALT/SGPT 21 U/L (16-61); Albumin, Serum 3.1 g/dL (3.2-5.0); Alkaline Phosphatase 124 U/L (45-117); Anion Gap 7 (5-15); BUN 12 mg/dL (7-18); BUN/Creat Ratio 9.6 RATIO (10-20); Calcium,Total 8.4 mg/dL (8.5-10.1); Chloride 103 mmol/L (98-107); Creatinine, Serum 1.25 mg/dL (0.70-1.30); EST Glomerular Filtration Rate 63 mL/min (>60); Est Glom Filt Rate - Afr Amer 76 mL/min (>60); Free T3 2.4 pg/mL (2.18-3.98); Globulin 3.8 g/dL (2.2-4.2); Glucose 112 mg/dL (74-106); Potassium 4.2 mmol/L (3.5-5.1); Protein, Total 6.9 g/dL (6.4-8.2); Sodium Level 138 mmol/L (136-145); T4 Free Direct 0.88 ng/dL (0.76-1.46); Thyroid Stim Hormone (TSH) 2.39 uIU/mL (0.358-3.74)
[2021-06-24 17:35] LABS: Vitamin B12 551 pg/mL (211-911); Vitamin D,25 Hydroxy 15.7 ng/mL
== END 2021-06-24 23:59 | disposition home or self-care (01) ==
LOC: LAB 16:14
PROVIDERS: PCP Family Medicine; Visit Provider Student in an Organized Health Care Education/Training Program
DX: G60.9 Hereditary and idiopathic neuropathy, unspecified (principal)
CPT/HCPCS: 36415; 80053; 82306; 82607; 82746; 83036; 84436; 84439; 84443; 84481; 85025; 85652; 86140

== ENCOUNTER 2021-07-24 06:51 | Emergency (ER) | payer MEDICARE, MEDICAID, SELFPAY ==
[2021-07-24 06:52] VITALS: BP 128/57; PULSE 87; RESP 15; TEMP 35.9; O2SAT 96; BMI 38.9
--- NOTE | 2021-07-24 07:14 | EDS_ITS ---
HPI History of Present Illness Chief Complaint: Other, Pain/Inj Informant: patient Onset/Context/Timing Onset: Days Current Severity: Moderate Maximum Severity: Moderate Narrative Narrative: Patient presents secondary to pain in his feet. He has a history of diabetes with chronic neuropathy. He is on oxycodone 4 times a day from his PCP. He is scheduled to see pain management next month. Patient states he ran out of his oxycodone 2 days ago and has not been able to sleep secondary to pain. He denies new injury. [facility] Medical History (Updated 07/24/21 @ 08:[address] Carmen Souza MD) BPH (benign prostatic hyperplasia) Chronic pain syndrome Gastroparesis due to DM Hypertension Neuropathy Home Medications tamsulosin 0.8 mg PO BID 10/04/15 [History Last Taken 04/06/19] amlodipine 5 mg PO DAILY 12/02/20 [History Last Taken Unknown] aspirin 81 mg PO DAILY 12/02/20 [History Last Taken Unknown] fluoxetine 40 mg PO BID 12/02/20 [History Last Taken Unknown] oxycodone 20 mg PO Q6H PRN 12/02/20 [History Last Taken Unknown] sildenafil 20 mg PO TID 12/02/20 [History Last Taken Unknown] phenazopyridine [Pyridium] 200 mg PO TID PRN #6 tab 12/15/20 [Rx Last Taken Unknown] Allergy/AdvReac Type Severity Reaction Status Date / Time No Known Allergies Allergy Verified 12/15/20 04:50 Surgical History Status post ORIF of fracture of ankle Social History Smoking Status: Current every day smoker tobacco type: cigarettes ROS ROS ED Constitutional Constitutional ED: Denies chills or fever(s) Eyes Eyes: Denies change in vision ENT ENT ED: Denies sore throat Cardiovascular Cardiovascular: Denies chest pain Respiratory/Chest Respiratory/Chest: Denies cough or dyspnea Gastrointestinal Gastrointestinal: Denies abdominal pain, nausea or vomiting Musculoskeletal Musculoskeletal: Denies back pain Integumentary Denies rash Neurologic Neurologic: Reports paresthesias; Denies headache(s) or weakness Allergic/Immunologic Allergic/Immunologic ED: Denies urticaria EXAM Physical Exam Const Vital Signs: 07/24/21 06:52 Temperature 96.6 F L Temperature Source Oral Pulse Rate 87 Respiratory Rate 15 Blood Pressure 128/57 H Blood Pressure Mean 80 Pulse Ox 96 Oxygen Delivery Method Room Air MDM MDM MDM Narrative Medical decision making narrative: I did review patient's [facility] report. He received a 14-day supply of oxycodone on July 11. He should be finishing his medication today. He states he ran out early because his doctor recently decreased his dose. He will be given a single dose of oxycodone here and advised to follow-up with his PCP for refill of his medication. He is to follow-up with his pain management doctor next month as scheduled. With no new injury or change in symptoms from baseline chronic pain I do not feel further work-up with blood work or imaging is indicated. Discharge Plan Triage Chief Complaint: Other, Pain/Inj ED Provider: Carmen Souza Dx/Rx/DC Orders Clinical Impression: Neuropathy Instructions: ED Chronic Pain, ED Neuropathy, Peripheral Prescriptions: No Action tamsulosin 0.4 MG capsule 0.8 mg PO BID RF: 0 fluoxetine 40 mg Capsule 40 mg PO BID RF: 0 amlodipine 5 mg Tablet 5 mg PO DAILY RF: 0 sildenafil 25 mg Tablet 20 mg PO TID RF: 0 oxycodone 30 mg Tablet 20 mg PO Q6H PRN (Reason: Pain) RF: 0 aspirin 81 mg Capsule 81 mg PO DAILY RF: 0 phenazopyridine [Pyridium] 200 MG tablet 200 mg PO TID PRN (Reason: pain) Qty: 6 RF: 0 Primary Care Provider: Nelson Xiong Referrals: Nelson Xiong DO [Primary Care Provider] - As soon as possible Activity Restrictions/Additional Instructions: Follow-up with pain management as planned. Disposition Disposition: Home, Self Care Discharge Date/Time: 07/24/21 08:01
[2021-07-24] MEDS: oxyCODONE 5 MG Tablet 20 MG PO (07:21)
--- NOTE | 2021-07-24 07:50 | ED.RN ---
PT WAS TOLD HE WAS TO HAVE A RIDE IF GIVEN A NARCOTIC BY THE PHYSICIAN. WHEN PT WAS TRYING TO LEAVE HE WAS TOLD HIS RIDE NEEDED TO COME IN AND GET HIM. PT STATED HE HAS BEEN DRIVING ON THESE MEDS FOR 10 YRS. EXPLAINED TO PT HE WAS TOLD THAT WAS NOT GOING TO HAPPEN TODAY PRIOR TO GIVING HIM THE MEDS. DRIVING WHILE ON NARCOTICS COULD PUT HIM IN THE POSITION OF A DUI. PT DIDN'T CARE. PT WAS TOLD IF HE DID NOT HAVE A RIDE THEN HE NEEDED TO STAY FOR 4 HRS. PT STATED HE GUESSED HE WAS STAYING. SHORTLY AFTER THIS CONVERSATION TE PT AMBULATED DOWN THE BACK HALLWAY TO AVOID THE NURSES STATION AND WALK OUT THE ER. THIS NURSE HAPPENED TO BE OUT BY THE TRIAGE DESK. WHEN ASKED THE PT WHAT HE WAS DOING HE REPLIED GOING OUTSIDE. THIS NURSE THEN TOLD HIM THAT [place] [employer] WOULD BE NOTIFIED. HE CONTINUED TO WALK OUT. SECURITY AND [employer] WAS NOTIFIED. SECURITY DID VERIFY HE GOT INTO HIS CAR AND LEFT.
== END 2021-07-24 08:01 | disposition home or self-care (01) ==
LOC: ED 07:27
PROVIDERS: Emergency Provider Emergency Medicine; PCP Family Medicine; Visit Provider Emergency Medicine
DX: M79.671 Pain in right foot (principal); E11.40 Type 2 diabetes mellitus with diabetic neuropathy, unspecified; M79.672 Pain in left foot; G89.4 Chronic pain syndrome; F17.210 Nicotine dependence, cigarettes, uncomplicated; I10 Essential (primary) hypertension; Z79.899 Other long term (current) drug therapy; Z79.82 Long term (current) use of aspirin
CPT/HCPCS: 99283

== ENCOUNTER 2021-09-30 09:59 | Observation (INO) | payer MEDICARE, MEDICAID, SELFPAY ==
[2021-09-30 09:59] VITALS: BP 132/78; PULSE 108; RESP 16; TEMP 36.9; O2SAT 97; BMI 36.6
--- NOTE | 2021-09-30 10:28 | CT_ITS ---
STUDY: CT BRAIN WITHOUT CONTRAST REASON FOR EXAM: Male, 61 years old. headache RADIATION DOSAGE (If Supplied By Facility): CTDIvol = ( 47.06 ) mGy, DLP = ( 925.62 ) mGycm TECHNIQUE: Transaxial CT imaging of the brain was performed without administration of intravenous contrast material. Individualized dose optimization techniques were used for this CT. COMPARISON: No relevant priors. FINDINGS: Normal soft tissue structures. Normal calvarium. Normal size ventricles and extra-axial spaces for the patient''s age. Normal white matter tracts of the cerebral hemispheres. Normal basal ganglia and thalami. Normal brainstem. Normal cerebellum. There is no intracranial hemorrhage. There are no findings of an acute ischemic infarction. Normal visualized paranasal sinuses. CT/Brain/Head without Contrast IMPRESSION: Normal unenhanced CT scan of the brain. Electronically Signed: Hugo Torres MD at 11:22 EDT ,
--- NOTE | 2021-09-30 10:28 | EKG12_ITS ---
Test Reason : GI Blood Pressure : / mmHG Vent. Rate : 108 BPM Atrial Rate : 108 BPM P-R Int : 160 ms QRS Dur : 092 ms QT Int : 364 ms P-R-T Axes : 077 265 067 degrees QTc Int : 487 ms Sinus tachycardia with Premature supraventricular complexes and Fusion complexes Low voltage QRS (Limb Leads) Inferior CA, age undetermined, cannot be excluded Poor R wave progression Anterolateral infarct , age undetermined , cannot be excluded Abnormal ECG Confirmed by RAMIRO BOBO, CAYLA ([id number]), primer expeditor and drier HUBERT OSORIO ([id number]) on 10/02/2021 8:14:48 AM Referred By: LEWIS Confirmed By:CAYLA RUBIO MD
--- NOTE | 2021-09-30 10:30 | EDS_ITS ---
HPI History of Present Illness Chief Complaint: General Illness Narrative Narrative: This is a 61-year-old male presenting for evaluation of vision changes. He initially states he feels like he has double vision especially when he walks but he is describing it as wavy vision. He states he had his glasses prescription updated a month ago when he is already not able to see out of them. He states that he has been feeling unsteady on his feet. He states that he has had some nausea but has been trying to drink as many fluids as he can. He states he drinks water, Too-Aid, Myra Medel. He states he is not able to keep a lot of food down because every time he eats he vomits. He does appear to have increased drinking and urination. He is not had a fever. He denies chest or abdominal pain. Patient does report a headache which feels like it is behind his eyes. He states that this has been going on for about 2 weeks. He states he recently saw his primary care provider who states he was borderline for diabetes. He denies taking any medication for diabetes. [facility] Medical History BPH (benign prostatic hyperplasia) Chronic pain syndrome Gastroparesis due to DM Hypertension Neuropathy Home Medications tamsulosin 0.4 mg capsule 0.8 mg PO BID 10/04/15 [History Last Taken 04/06/19] Allergy/AdvReac Type Severity Reaction Status Date / Time No Known Allergies Allergy Verified 09/30/21 10:03 Family History (Updated 09/30/21 @ 12:[address] Ricky Daniels DO) Other Diabetes Surgical History Status post ORIF of fracture of ankle Social History Smoking Status: Current every day smoker tobacco type: cigarettes alcohol intake: former substance use type: does not use ROS ROS ED Constitutional Constitutional ED: Denies chills or fever(s) Eyes Eyes: Reports change in vision bilateral ENT ENT ED: Denies rhinorrhea or sore throat Cardiovascular Cardiovascular: Denies chest pain or palpitations Respiratory/Chest Respiratory/Chest: Reports cough Gastrointestinal Gastrointestinal: Reports nausea and vomiting; Denies abdominal pain Genitourinary Genitourinary ED: Denies dysuria or hematuria Musculoskeletal Musculoskeletal: Denies arthralgias or back pain Integumentary Denies abscess Neurologic Neurologic: Reports headache(s); Denies paresthesias or weakness Endocrine Endocrinology: Reports polydipsia and polyuria Hematologic/Lymphatic Hematologic/Lymphatic: Denies easy bruising EXAM Physical Exam Const Vital Signs: 09/30/21 09:59 09/30/21 10:06 Temperature 98.4 F Temperature Source Temporal Pulse Rate 108 H Respiratory Rate 16 Respiratory Effort Normal Non-Labored Respiratory Pattern Normal Blood Pressure 132/78 H Blood Pressure Mean 96 Pulse Ox 97 Oxygen Delivery Method Room Air Positive obese General Appearance ED: NAD Nutritional Appearance: obese HEENT Reports moist mucous membranes Eyes PERRL and EOMs intact bilaterally Resp normal respiratory effort Auscultation: Negative for rales, rhonchi or wheezes Cardio regular rhythm Rate: tachycardic GI normal to inspection, nondistended, normoactive bowel sounds Neuro oriented x3 and CN's II-XII intact bilaterally Sensorium / Orientation: alert Psych mental status grossly normal Skin no rashes or lesions noted and no wounds MDM MDM MDM Narrative Medical decision making narrative: Patient presenting with multiple complaints, initial concern is that he is hyperglycemic. He had a blood sugar in the 500s by EMS. He is describing polyuria and polydipsia to me as well. Patient is given 2 L of IV fluids. I did obtain blood work and his CBC shows a slight leukocytosis of 14.2 which could possibly be from vomiting. Hemoglobin hematocrit are stable. Platelets are normal. Creatinine is elevated at 1.75 and his GFR is down to 43. Glucose is elevated at 874. He has a slight anion gap of 17 which I believe will probably close after IV fluids. He has small ketones in his urine. Urinalysis is negative for infection. Chest x-ray on my interpretation shows no acute cardiopulmonary process and the radiologist does agree. CT of the brain was obtained due to the patient's visual disturbance and dizziness which is negative for acute findings. This is likely due to his hyperglycemia. High-sensitivity troponin is 30. His EKG is a sinus rhythm with a ventricular rate of 108 bpm with out sign of ST elevation or depression. I feel this time the patient would benefit from a patient since he has an acute kidney injury and he has a blood glucose of 874. I discussed this with the hospitalist for admission. Impression: 1. Nausea/vomiting 2. Visual disturbance 3. Hyperglycemia 4. Acute kidney injury 5. Pseudohyponatremia 6. Leukocytosis 7. Dizziness Lab Data Labs: Laboratory Results - last 24 hr 09/30/21 09/30/21 09/30/21 10:30 10:30 10:54 WBC 14.2 H RBC 5.51 Hgb 16.2 Hct 48.1 MCV 87.3 MCH 29.4 MCHC 33.7 RDW Std Deviation 44.0 H RDW Coeff of Halley 13.7 Plt Count 255 MPV 12.1 H Immature Gran % (Auto) 0.400 Neut % (Auto) 75.5 H Lymph % (Auto) 14.2 L [place] % (Auto) 8.5 Eos % (Auto) 0.5 Baso % (Auto) 0.9 Absolute Neuts (auto) 10.7 H Absolute Lymphs (auto) 2.02 Nucleated RBC % 0 Sodium 123 L Potassium 4.4 Chloride 82 L Carbon Dioxide 24.0 Anion Gap 17 H BUN 15 Creatinine 1.75 H Estim Creat Clear Calc 46.93 Est GFR (MDRD) Af Amer 52 L Est GFR (MDRD) Non-Af 43 L BUN/Creatinine Ratio 8.6 L Glucose 874 H* Calcium 9.1 Total Bilirubin 0.80 AST 19 ALT 35 Alkaline Phosphatase 159 H Troponin I High Sens 30 Total Protein 8.0 Albumin 3.9 Globulin 4.1 Albumin/Globulin Ratio 1.0 Urine Color Straw Urine Clarity Clear Urine pH 6.0 Ur Specific [place] 1.010 Urine Protein Negative Urine Glucose (UA) 1000 H Urine Ketones 15 H Urine Occult Blood Negative Urine Nitrite Negative Urine Bilirubin Negative Urine Urobilinogen Normal Ur Leukocyte Esterase Negative Urine RBC 0 SEEN Urine WBC 0 SEEN Ur Squamous Epith Cells 0 SEEN Urine Bacteria 0 SEEN Urine Mucus 0 SEEN Radiography Diagnostic Testing: Clinical Impression(s) from Imaging Studies Brain CT 09/30/21 10:28 IMPRESSION: Normal unenhanced CT scan of the brain. Electronically Signed: Hugo Torres MD at 11:22 EDT , Chest X-Ray 09/30/21 11:10 IMPRESSION: Normal x-ray examination of the chest. Electronically Signed: Hugo Torres MD at 11:44 EDT , Discharge Plan Triage Chief Complaint: General Illness ED Provider: Walter Freeman Dx/Rx/DC Orders Prescriptions: No Action tamsulosin 0.4 MG capsule 0.8 mg PO BID Primary Care Provider: Nelson Xiong Referrals: Nelson Xiong DO [Primary Care Provider] -
[2021-09-30 10:38] LABS: Absolute Lymphocyte Count 2.02 X10^3/uL (0.83-4.51); Absolute Neutrophil Count 10.7 X10^3/uL (2.0-7.7); Basophil# 0.13 X10^3/uL; Basophil% 0.9 % (0-1); Eosinophil# 0.07 X10^3/uL; Eosinophils% 0.5 % (0-5); Hematocrit 48.1 % (40-54); Hemoglobin 16.2 g/dL (13.0-16.5); Lymphocyte # 2.02 X10^3/ul (0.83-4.51); Lymphocyte % 14.2 % (19-41); Mean Corp Hgb Conc 33.7 g/dL (32-36); Mean Corpuscular Hgb 29.4 pg (27.0-32.0); Mean Corpuscular Volume 87.3 fL (80-94); Mean Platelet Vol. 12.1 fl (6.2-12.0); Monocyte# 1.21 X10^3/uL; Monocyte% 8.5 % (0-10); NRBC Flagged by Analyzer 0 % (0-5); Neutrophil % 75.5 % (47-70); Platelet Count 255 K/mm3 (150-450); RBC Distribution Width CV 13.7 % (11.6-14.6); Red Blood Count 5.51 M/mm3 (4.6-6.2); White Blood Count 14.2 K/mm3 (4.4-11.0)
[2021-09-30] MEDS: Acetaminophen 500 MG Tablet 1000 MG PO (10:45)
[2021-09-30] MEDS: Ondansetron 4 MG/2 ML Vial IV (10:45)
[2021-09-30] MEDS: 0.9% Normal Saline 1,000 ML 1000 ML IV (10:47)
[2021-09-30 10:55] LABS: Bacteria 0 SEEN /hpf (None Seen); Mucous, Urine 0 SEEN /hpf (<or=2+); Red Blood Cells-Urine 0 SEEN /hpf (0-5); Squamous Epithelial Cells - UA 0 SEEN /hpf (0-5); White Blood Cells 0 SEEN /hpf (0-5)
[2021-09-30 10:56] LABS: Color, Urine Straw (Yellow); Glucose, Dipstick 1000 mg/dl (Normal); Ketone-Dipstick 15 mg/dl (Negative); Leukocyte Esterase-Dipstick Negative /ul (Negative); Nitrite-Dipstick Negative (Negative); Occult Blood-Urine Negative /ul (Negative); Protein-Dipstick Negative (Negative); Urine Bilirubin Dipstick Negative (Negative); Urine Clarity Clear (Clear); Urine Urobilinogen Normal (Normal)
[2021-09-30 11:02] LABS: AST(SGOT) 19 U/L (15-37); Alanine Aminotransfer ALT/SGPT 35 U/L (16-61); Albumin, Serum 3.9 g/dL (3.2-5.0); Alkaline Phosphatase 159 U/L (45-117); Anion Gap 17 (5-15); BUN 15 mg/dL (7-18); BUN/Creat Ratio 8.6 RATIO (10-20); Calcium,Total 9.1 mg/dL (8.5-10.1); Chloride 82 mmol/L (98-107); Creatinine, Serum 1.75 mg/dL (0.70-1.30); EST Glomerular Filtration Rate 43 mL/min (>60); Est Glom Filt Rate - Afr Amer 52 mL/min (>60); Estimated Creatinine Clearance 46.93 ml/min; Globulin 4.1 g/dL (2.2-4.2); Glucose 874 mg/dL (74-106); Potassium 4.4 mmol/L (3.5-5.1); Sodium Level 123 mmol/L (136-145); Troponin-I HS 30 pg/mL (3.0-78.0)
--- NOTE | 2021-09-30 11:10 | RAD_ITS ---
STUDY: X-RAY CHEST REASON FOR EXAM: Male, 61 years old. Weakness TECHNIQUE: Single AP portable view of the chest. COMPARISON: 10/04/2015 FINDINGS: The lungs are clear and expanded. There is no demonstrated pleural abnormality. Normal size heart. Normal mediastinum and hi. Normal visualized pulmonary arteries. Normal visualized aortic arch and descending thoracic aorta. Normal visualized thoracic spine. Healed fracture the left clavicle. There is no demonstrated abnormality of the visualized soft tissue structures of the upper abdomen. RAD/Chest 1 View (Portable) IMPRESSION: Normal x-ray examination of the chest. Electronically Signed: Hugo Torres MD at 11:44 EDT ,
[2021-09-30] MEDS: 0.9% Normal Saline 1,000 ML 999 ML IV (11:26)
--- NOTE | 2021-09-30 12:14 | PCM.HP.STD ---
HPI - General General Date of Admission: 09/30/21 Date of Service: 09/30/21 Chief Complaint: Polyuria, polydipsia, weakness HPI Narrative MICHELLE FERRER, is a 61 M who presents with about 3-week history of polyuria, polydipsia, weakness, lack of appetite. Patient presented to the emergency room and he had a blood sugar of 874. Patient also had elevated creatinine of 1.75. Patient received IV fluids. The hospital service was contacted for admission. Patient does have a history of diabetes and has been on metformin in the past but was taken off because, according to patient, it is felt his. Patient was checking his blood sugar at the time but could not read the meters properly. Patient does have some blurred vision which she just got fitted for new glasses but his blurred vision has gotten worse since then. [facility] Medical History BPH (benign prostatic hyperplasia) Chronic pain syndrome Gastroparesis due to DM Hypertension Neuropathy Home Medications tamsulosin 0.4 mg capsule 0.8 mg PO BID 10/04/15 [History Last Taken 04/06/19] Allergy/AdvReac Type Severity Reaction Status Date / Time No Known Allergies Allergy Verified 09/30/21 10:03 Family History (Updated 09/30/21 @ 12:[address] Ricky Daniels DO) Other Diabetes Surgical History Status post ORIF of fracture of ankle Social History (Updated 09/30/21 @ 12:[address] Ricky Daniels DO) Smoking Status: Current every day smoker tobacco type: cigarettes alcohol intake: former substance use type: does not use Vital Signs Vital Signs Vital Signs: 09/30/21 09:59 09/30/21 10:06 Temperature 36.9 C Temperature Source Temporal Pulse Rate 108 H Respiratory Rate 16 Respiratory Effort Normal Non-Labored Respiratory Pattern Normal Blood Pressure 132/78 H Blood Pressure Mean 96 Pulse Ox 97 Oxygen Delivery Method Room Air Weight Weight: 115.9 kg Body Mass Index (BMI) 36.6 Physical Exam Const alert and no apparent distress HEENT normocephalic and hearing grossly normal bilaterally Resp normal respiratory effort, no retractions, no use of accessory muscles and clear to auscultation bilaterally Cardio regular rate, regular rhythm, S1 normal heart sound and S2 normal heart sound GI normal to inspection, nondistended, normoactive bowel sounds, soft to palpation, non-tender and non-distended Extremity normal to inspection Psych affect normal Results Lab / Micro Data Attestation: I reviewed the patient's lab results. Result Diagrams: 09/30/21 10:30 09/30/21 10:30 Labs: Laboratory Results - last 24 hr 09/30/21 10:30: WBC 14.2 H, RBC 5.51, Hgb 16.2, Hct 48.1, MCV 87.3, MCH 29.4, MCHC 33.7, RDW Std Deviation 44.0 H, RDW Coeff of Halley 13.7, Plt Count 255, MPV 12.1 H, Immature Gran % (Auto) 0.400, Neut % (Auto) 75.5 H, Lymph % (Auto) 14.2 L, [place] % (Auto) 8.5, Eos % (Auto) 0.5, Baso % (Auto) 0.9, Absolute Neuts (auto) 10.7 H, Absolute Lymphs (auto) 2.02, Nucleated RBC % 0 09/30/21 10:30: Sodium 123 L, Potassium 4.4, Chloride 82 L, Carbon Dioxide 24.0, Anion Gap 17 H, BUN 15, Creatinine 1.75 H, Estim Creat Clear Calc 46.93, Est GFR (MDRD) Af Amer 52 L, Est GFR (MDRD) Non-Af 43 L, BUN/Creatinine Ratio 8.6 L, Glucose 874 H*, Calcium 9.1, Total Bilirubin 0.80, AST 19, ALT 35, Alkaline Phosphatase 159 H, Troponin I High Sens 30, Total Protein 8.0, Albumin 3.9, Globulin 4.1, Albumin/Globulin Ratio 1.0 09/30/21 10:54: Urine Color Straw, Urine Clarity Clear, Urine pH 6.0, Ur Specific [place] 1.010, Urine Protein Negative, Urine Glucose (UA) 1000 H, Urine Ketones 15 H, Urine Occult Blood Negative, Urine Nitrite Negative, Urine Bilirubin Negative, Urine Urobilinogen Normal, Ur Leukocyte Esterase Negative, Urine RBC 0 SEEN, Urine WBC 0 SEEN, Ur Squamous Epith Cells 0 SEEN, Urine Bacteria 0 SEEN, Urine Mucus 0 SEEN EKG Initial EKG: Attestation: I personally reviewed and interpreted this EKG as follows: Prior EKG tracings: available for review EKG Rhythm Intrepretation: Sinus Rhythm Radiology Impression Brain CT 09/30/21 10:28 IMPRESSION: Normal unenhanced CT scan of the brain. Electronically Signed: Hugo Torres MD at 11:22 EDT Reading Location ID and State: [id number] / [employer] Tel , Service support , Chest X-Ray 09/30/21 11:10 IMPRESSION: Normal x-ray examination of the chest. Electronically Signed: Hugo Torres MD at 11:44 EDT , Assessment & Plan Assessment/Plan (1) Diabetes mellitus, type II: QUALIFIERS: Diabetes mellitus nursing home insulin use: without terminal carman use Diabetes mellitus complication status: with other specified complication Qualified Code(s): E11.69 - Type 2 diabetes mellitus with other specified complication (2) SHANTAL (acute kidney injury): (3) Hyponatremia: PLAN: Plan 1. Diabetes mellitus type 2, uncontrolled Patient had been treated with diabetes in the past with metformin but was stopped due to felt the patient no longer being diabetic, according to the patient. Plan: Patient had DKA. We will get the patient a dose of Humalog and then initiate him on basal insulin. Patient will be on prandial insulin moving forward Dietary to give instructions. Patient has a bottle of Mountain Dew in his room but he states that he just filled with water and does not drink soda pops normally. States he does drink Too-Aid but low sugar as well as ice tea. Patient advised simply not to drink his calories. , Patient will have other diabetic instructions regards to using glucometer and administering insulin. 2. Acute kidney injury Likely due to the polyuria Plan: IV fluids and follow-up labs. 3. Hyponatremia Pseudohyponatremia due to the hyperglycemia. Monitor 4. VTE prophylaxis: Not indicated given that the patient is observation status. Charges/Coding Visit Charges OBSV E&M: 41796 Initial observation care L2
[2021-09-30 12:22] VITALS: BP 100/88; PULSE 99; RESP 18; TEMP 36.6; O2SAT 99
[2021-09-30 12:31] LABS: Bedside Glucose > 500 mg/dL (74-106)
--- NOTE | 2021-09-30 12:44 | NURSING ---
Hima TANG HYPERGLYCEMIA, SHANTAL
[2021-09-30 12:55] LABS: Glucose 702 mg/dL (74-106)
[2021-09-30 13:00] VITALS: BP 135/76; PULSE 97; RESP 18; O2SAT 99
[2021-09-30 14:30] VITALS: BMI 36.6
[2021-09-30] MEDS: Insulin Lispro 100 UNIT/ML INSULN.PEN 10 UNIT SC (15:25)
[2021-09-30] MEDS: 0.9% Normal Saline 1,000 ML 150 ML IV ×2 (15:28→20:45)
[2021-09-30 15:30] VITALS: BP 111/83; PULSE 93; RESP 18; TEMP 36.7; O2SAT 94
--- NOTE | 2021-09-30 15:31 | NURSING ---
pt arrived @ 1515 to floor @ 1533 the long actine 1x dose insulin is unvailable for pt administration-Rodrigo in Rx aware
[2021-09-30 15:45] LABS: Bedside Glucose > 500 mg/dL (74-106)
[2021-09-30] MEDS: Insulin Glargine-YFGN 100 UNIT/ML Pen 30 UNIT SC (16:24)
[2021-09-30] MEDS: Insulin Lispro 100 UNIT/ML INSULN.PEN 8 UNIT SC (16:29)
[2021-09-30] MEDS: Insulin Lispro 100 UNIT/ML INSULN.PEN SC ×2 (16:30→22:48)
[2021-09-30 16:36] LABS: Bedside Glucose 425 mg/dL (74-106)
[2021-09-30] MEDS: Acetaminophen 325 MG Tablet 650 MG PO (17:55)
[2021-09-30 18:05] LABS: Bedside Glucose 385 mg/dL (74-106)
[2021-09-30 20:29] VITALS: BP 143/115; PULSE 99; RESP 18; TEMP 36.4; O2SAT 92
[2021-09-30 22:31] LABS: Bedside Glucose 361 mg/dL (74-106)
[2021-10-01] VITALS (9 sets, daily range): BP systolic 98–133; BP diastolic 68–100; PULSE 83–108; RESP 16–20; TEMP 36.4–37; O2SAT 94–98; BMI 36.6
[2021-10-01 02:41] LABS: Bedside Glucose 226 mg/dL (74-106)
[2021-10-01] MEDS: 0.9% Normal Saline 1,000 ML 150 ML IV ×3 (03:11→18:38)
[2021-10-01 06:34] LABS: Absolute Lymphocyte Count 2.88 X10^3/uL (0.83-4.51); Absolute Neutrophil Count 4.9 X10^3/uL (2.0-7.7); Basophil# 0.13 X10^3/uL; Basophil% 1.5 % (0-1); Eosinophil# 0.23 X10^3/uL; Eosinophils% 2.6 % (0-5); Hematocrit 46.6 % (40-54); Hemoglobin 14.3 g/dL (13.0-16.5); Lymphocyte # 2.88 X10^3/ul (0.83-4.51); Lymphocyte % 32.7 % (19-41); Mean Corp Hgb Conc 30.7 g/dL (32-36); Mean Corpuscular Hgb 29.2 pg (27.0-32.0); Mean Corpuscular Volume 95.1 fL (80-94); Mean Platelet Vol. 11.4 fl (6.2-12.0); Monocyte# 0.68 X10^3/uL; Monocyte% 7.7 % (0-10); NRBC Flagged by Analyzer 0 % (0-5); Neutrophil # 4.86 X10^3/uL (2.7-7.7); Neutrophil % 55.2 % (47-70); Platelet Count 173 K/mm3 (150-450); RBC Distribution Width CV 13.9 % (11.6-14.6); RBC Distribution Width SD 49.1 fl (35.1-43.9); White Blood Count 8.8 K/mm3 (4.4-11.0)
[2021-10-01 07:21] LABS: Anion Gap 7 (5-15); BUN 12 mg/dL (7-18); BUN/Creat Ratio 15.2 RATIO (10-20); Calcium,Total 7.7 mg/dL (8.5-10.1); Chloride 104 mmol/L (98-107); Creatinine, Serum 0.79 mg/dL (0.70-1.30); EST Glomerular Filtration Rate 107 mL/min (>60); Est Glom Filt Rate - Afr Amer 129 mL/min (>60); Estimated Creatinine Clearance 103.96 ml/min; Glucose 252 mg/dL (74-106); Potassium 3.9 mmol/L (3.5-5.1); Sodium Level 133 mmol/L (136-145)
--- NOTE | 2021-10-01 07:28 | PN.HOSP_ITS ---
Subjective Subjective complains of diplopia for past 3 days. Recently, had his eyes evaluated at [facility]. He states his left eye is clear and his right is blurry. Objective Data Objective Data Vital Signs: Vital Signs Temp Pulse Resp BP Pulse Ox O2 Del Method 36.4 C L 88 18 125/77 H 95 Room Air 10/01/21 02:27 10/01/21 02:27 10/01/21 02:27 10/01/21 02:27 10/01/21 02:27 10/01/21 02:27 Oxygen Delivery Method Room Air Weight: 115.7 kg Body Mass Index (BMI) 36.6 Intake & Output: Intake and Output for Last 24 Hours 09/29/21 09/30/21 10/01/21 23:59 23:59 23:59 Intake Total 3342.5 / 3342.5 1865 / 1865 Output Total 250 / 250 1300 / 1300 Balance 3092.5 / 3092.5 565 / 565 Lab / Micro Data Result Diagrams: 10/01/21 06:02 10/01/21 06:02 Labs: Laboratory Results - last 24 hr 09/30/21 10:30: WBC 14.2 H, RBC 5.51, Hgb 16.2, Hct 48.1, MCV 87.3, MCH 29.4, MCHC 33.7, RDW Std Deviation 44.0 H, RDW Coeff of Halley 13.7, Plt Count 255, MPV 12.1 H, Immature Gran % (Auto) 0.400, Neut % (Auto) 75.5 H, Lymph % (Auto) 14.2 L, [place] % (Auto) 8.5, Eos % (Auto) 0.5, Baso % (Auto) 0.9, Absolute Neuts (auto) 10.7 H, Absolute Lymphs (auto) 2.02, Nucleated RBC % 0 09/30/21 10:30: Sodium 123 L, Potassium 4.4, Chloride 82 L, Carbon Dioxide 24.0, Anion Gap 17 H, BUN 15, Creatinine 1.75 H, Estim Creat Clear Calc 46.93, Est GFR (MDRD) Af Amer 52 L, Est GFR (MDRD) Non-Af 43 L, BUN/Creatinine Ratio 8.6 L, Glucose 874 H*, Calcium 9.1, Total Bilirubin 0.80, AST 19, ALT 35, Alkaline Phosphatase 159 H, Troponin I High Sens 30, Total Protein 8.0, Albumin 3.9, Globulin 4.1, Albumin/Globulin Ratio 1.0 09/30/21 10:54: Urine Color Straw, Urine Clarity Clear, Urine pH 6.0, Ur Specific [place] 1.010, Urine Protein Negative, Urine Glucose (UA) 1000 H, Urine Ketones 15 H, Urine Occult Blood Negative, Urine Nitrite Negative, Urine Bilirubin Negative, Urine Urobilinogen Normal, Ur Leukocyte Esterase Negative, Urine RBC 0 SEEN, Urine WBC 0 SEEN, Ur Squamous Epith Cells 0 SEEN, Urine Bacteria 0 SEEN, Urine Mucus 0 SEEN 09/30/21 12:25: POC Glucose > 500 H* 09/30/21 12:35: Glucose 702 H* 09/30/21 15:16: POC Glucose > 500 H* 09/30/21 16:27: POC Glucose 425 H 09/30/21 17:59: POC Glucose 385 H 09/30/21 22:26: POC Glucose 361 H 10/01/21 02:32: POC Glucose 226 H 10/01/21 06:02: WBC 8.8, RBC 4.90, Hgb 14.3, Hct 46.6, MCV 95.1 H D, MCH 29.2, MCHC 30.7 L D, RDW Std Deviation 49.1 H, RDW Coeff of Halley 13.9, Plt Count 173, MPV 11.4, Immature Gran % (Auto) 0.300, Neut % (Auto) 55.2, Lymph % (Auto) 32.7, [place] % (Auto) 7.7, Eos % (Auto) 2.6, Baso % (Auto) 1.5 H, Absolute Neuts (auto) 4.9, Absolute Lymphs (auto) 2.88, Nucleated RBC % 0 10/01/21 06:02: Sodium 133 L, Potassium 3.9, Chloride 104, Carbon Dioxide 22.0, Anion Gap 7, BUN 12, Creatinine 0.79, Estim Creat Clear Calc 103.96, Est GFR (MDRD) Af Amer 129, Est GFR (MDRD) Non-Af 107, BUN/Creatinine Ratio 15.2, Glucose 252 H, Calcium 7.7 L, TSH 0.40 Radiography Diagnostic Testing: Radiology Impression Brain CT 09/30/21 10:28 IMPRESSION: Normal unenhanced CT scan of the brain. Electronically Signed: Hugo Torres MD at 11:22 EDT Reading Location ID and State: [id number] / [employer] Tel , Service support , Chest X-Ray 09/30/21 11:10 IMPRESSION: Normal x-ray examination of the chest. Electronically Signed: Hugo Torres MD at 11:44 EDT , Physical Exam Const alert and no apparent distress HEENT head/scalp atraumatic and moist oral mucous membranes Resp normal respiratory effort, no retractions, no use of accessory muscles and clear to auscultation bilaterally Cardio regular rate, regular rhythm, S1 normal heart sound and S2 normal heart sound GI normal to inspection, nondistended, normoactive bowel sounds, soft to palpation, non-tender and non-distended Extremity normal to inspection and full ROM Neuro oriented x3, CN's II-XII intact bilaterally and moves all extremities Sensorium / Orientation: awake and alert Coordination / Balance: [id number] test normal Speech: speech normal Motor Exam: strength 5/5 throughout Psych affect normal Assessment & Plan Assessment/Plan (1) Diabetes mellitus, type II: QUALIFIERS: Diabetes mellitus complication status: with other specified complication 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 Diabetes mellitus type 2, uncontrolled Patient had been treated with diabetes in the past with metformin but was stopped due to felt the patient no longer being diabetic, according to the patient. Improved Plan: * Clarification: Patient does not have DKA. * We will get the patient a dose of Humalog and then initiate him on basal insulin. Patient will be on prandial insulin moving forward * Dietary to give instructions. Patient has a bottle of Mountain Dew in his room but he states that he just filled with water and does not drink soda pops normally. States he does drink Too-Aid but low sugar as well as ice tea. Patient advised simply not to drink his calories. * Patient will have other diabetic instructions regards to using glucometer and administering insulin. * Follow up a1c 2. Acute kidney injury Resolved. Likely due to the polyuria Plan: IV fluids and follow-up labs. 3. Hyponatremia Improved Pseudohyponatremia due to the hyperglycemia. 4. Diplopia onset 09/28 recent optometry eval a few weeks ago that pt reports as normal check CVA work up w MRI, MRA, echo start ASA 5.VTE prophylaxis: Not indicated given that the patient is observation status. Charges/Coding Visit Charges Inpatient E&M: 76972 Subs Hosp L3
[2021-10-01] MEDS: Insulin Lispro 100 UNIT/ML INSULN.PEN 8 UNIT SC ×3 (07:49→16:33)
[2021-10-01 07:50] LABS: Bedside Glucose 249 mg/dL (74-106)
[2021-10-01] MEDS: Insulin Lispro 100 UNIT/ML INSULN.PEN SC ×3 (07:50→21:57)
[2021-10-01] MEDS: Insulin Glargine-YFGN 100 UNIT/ML Pen 30 UNIT SC (07:51)
[2021-10-01] MEDS: Tamsulosin HCl 0.4 MG Capsule 0.8 MG PO (07:55)
[2021-10-01 08:24] LABS: Hemoglobin A1c 11.4 % (3.8-5.6)
[2021-10-01] MEDS: Magnesium Hydroxide 30 ML UDC 15 ML PO ×3 (11:06→18:01)
[2021-10-01 11:16] LABS: Bedside Glucose 371 mg/dL (74-106)
[2021-10-01 12:25] LABS: Troponin-I HS 30 pg/mL (3.0-78.0)
--- NOTE | 2021-10-01 13:05 | ECHOCS_ITS ---
Reason For Study: TIA/CVA Procedure This was a 2D Doppler, Color Flow transthoracic echocardiogram. The study was technically difficult. Contrast injection was performed. Exam performed portable in patient room. Left Ventricle Normal LV size. Left ventricular systolic function is normal. The estimated ejection fraction is 70 %. No evidence for diastolic dysfunction. No regional wall motion abnormalities noted. Right Ventricle Normal RV size. Normal systolic function. Atria Normal left atrium. Normal right atrium. No doppler evidence for ASD. Bubble contrast study negative for right to left interatrial shunt. Mitral Valve There is no mitral annular calcification. Normal mitral valve. Tricuspid Valve Normal tricuspid valve. Aortic Valve The aortic valve is not well visualized. Pulmonic Valve The pulmonic valve is not well visualized. Great Vessels The aortic root is not well visualized. Pericardium/Pleural No pericardial effusion. Medication Diluted definity 3ml given slow IV push to enhance endocardial definition. Performed a rapid injection of agitated mix of 9 cc saline and 1cc air to assess for atrial septal defect. MMode/2D Measurements & Calculations LA dimension: 3.2 cm LAV(MOD-bp): 41.4 ml LVAd ap4: 25.3 cm2 LAV(MOD-bp) Indexed: 17.9 ml/m2 LVLd ap4: 6.5 cm LAV(MOD-sp2): 35.7 ml EDV(MOD-sp4): 78.2 ml LAV(MOD-sp4): 39.5 ml EDV(sp4-el): 83.0 ml LVAs ap4: 16.9 cm2 LVLs ap4: 6.8 cm ESV(MOD-sp4): 34.2 ml ESV(sp4-el): 35.6 ml EF(MOD-sp4): 56.3 % EF(sp4-el): 57.1 % LVAd ap2: 30.2 cm2 SV(MOD-sp4): 44.0 ml SV(MOD-sp2): 64.2 ml LVLd ap2: 7.7 cm EDV(MOD-sp2): 97.9 ml EDV(sp2-el): 100.5 ml LVAs ap2: 16.3 cm2 LVLs ap2: 6.6 cm ESV(MOD-sp2): 33.7 ml ESV(sp2-el): 34.0 ml EF(MOD-sp2): 65.5 % SV(sp4-el): 47.3 ml LA A4 area: 16.4 cm2 RA A4 area: 16.8 cm2 Time Measurements MV dec time: 0.18 sec Doppler Measurements & Calculations MV E max boogie: 80.9 cm/sec Lat Peak E' Boogie: 11.0 cm/sec Med Peak E' Boogie: 12.1 cm/sec MV A max boogie: 70.9 cm/sec E/E' lat: 7.4 E/E' med: 6.7 MV E/A: 1.1 MV V2 max: 99.7 cm/sec MV P1/2t max boogie: 85.4 cm/sec Ao V2 max: 122.0 cm/sec MV max P.0 mmHg MV P1/2t: 95.7 msec Ao max P.0 mmHg MV V2 mean: 64.7 cm/sec MV mean P.9 mmHg MV dec slope: 261.3 cm/sec2 MV V2 VTI: 19.8 cm MVA(P1/2t): 2.3 cm2 LV V1 max: 115.5 cm/sec PA V2 max: 107.9 cm/sec LV V1 max P.3 mmHg ECHO/Echo Complete W/ Contrast Interpretation Summary The study was technically difficult. Contrast injection was performed. Left ventricular systolic function is normal. The estimated ejection fraction is 70 %. No evidence for diastolic dysfunction. Bubble contrast study negative for right to left interatrial shunt. Ordering Physician: Ricky Daniels Referring Physician: Nelson Xiong Performed By: Nils Sandoval RCS
--- NOTE | 2021-10-01 13:05 | MRI_ITS ---
EXAM: MR ANGIOGRAPHY HEAD WITHOUT INTRAVENOUS CONTRAST CLINICAL INDICATION: diplopia TECHNIQUE: Routine [place]/brain 3D time of flight MR angiogram protocol was performed without intravenous contrast. This report was created using [employer] technology. COMPARISON: None. FINDINGS: RIGHT INTERNAL CAROTID ARTERY: No acute findings. No significant stenosis at the intracranial/visualized segments. No aneurysm. RIGHT ANTERIOR CEREBRAL ARTERY: Unremarkable. No significant stenosis at the visualized segments. Anterior communicating artery is present. No aneurysm. RIGHT MIDDLE CEREBRAL ARTERY: Unremarkable. No significant stenosis at the visualized segments. No aneurysm. RIGHT POSTERIOR CEREBRAL ARTERY: Unremarkable. No significant stenosis at the visualized segments. No aneurysm. RIGHT VERTEBRAL ARTERY: Unremarkable as visualized. No significant stenosis at the intradural/visualized segments. No aneurysm. LEFT INTERNAL CAROTID ARTERY: No acute findings. No significant stenosis at the intracranial/visualized segments. No aneurysm. LEFT ANTERIOR CEREBRAL ARTERY: Unremarkable. No significant stenosis at the visualized segments. Anterior communicating artery is present. No aneurysm. LEFT MIDDLE CEREBRAL ARTERY: Unremarkable. No significant stenosis at the visualized segments. No aneurysm. LEFT POSTERIOR CEREBRAL ARTERY: Unremarkable. No significant stenosis at the visualized segments. No aneurysm. LEFT VERTEBRAL ARTERY: Unremarkable as visualized. No significant stenosis at the intradural/visualized segments. No aneurysm. BASILAR ARTERY: Unremarkable. No significant stenosis. No aneurysm. OTHER VASCULATURE: No vascular malformation. OTHER FINDINGS: There are no acute findings of the [place] without a demonstrated aneurysm or hemodynamically significant stenosis. ALL ABOVE CRITERIA BY NASCET. MRI/MRA Head ONLY without Contrast IMPRESSION: There are no acute findings of the [place] without a demonstrated aneurysm or hemodynamically significant stenosis. ALL ABOVE CRITERIA BY NASCET. Electronically Signed: Kaleb Grimes MD at 17:35 EDT ,
--- NOTE | 2021-10-01 13:05 | MRI_ITS ---
EXAM: MR ANGIOGRAPHY NECK WITHOUT INTRAVENOUS CONTRAST CLINICAL INDICATION: diplopia TECHNIQUE: Routine carotid MR angiogram protocol was performed without intravenous contrast. 3D reconstructions were reviewed. Nascet criteria using the distal ICAs for comparison were used for evaluation of stenoses. This report was created using [employer] report [email or web address] technology. COMPARISON: None. FINDINGS: RIGHT COMMON CAROTID ARTERY: Unremarkable. No occlusion or significant stenosis. No dissection. RIGHT INTERNAL CAROTID ARTERY: Unremarkable. Extracranial segment is patent with no occlusion or significant stenosis. No dissection. RIGHT EXTERNAL CAROTID ARTERY: Unremarkable. No occlusion. RIGHT VERTEBRAL ARTERY: Unremarkable. No occlusion or significant stenosis. No dissection. LEFT COMMON CAROTID ARTERY: Unremarkable. No occlusion or significant stenosis. No dissection. LEFT INTERNAL CAROTID ARTERY: Unremarkable. Extracranial segment is patent with no occlusion or significant stenosis. No dissection. LEFT EXTERNAL CAROTID ARTERY: Unremarkable. No occlusion. LEFT VERTEBRAL ARTERY: Unremarkable. No occlusion or significant stenosis. No dissection. GREAT VESSELS OF AORTIC ARCH: Unremarkable. No significant stenosis. CAROTID STENOSIS REFERENCE USING NASCET CRITERIA: % ICA stenosis = (1 - narrowest ICA diameter/diameter of distal cervical ICA) x 100. Mild - <50% stenosis. Moderate - 50-69% stenosis. Severe - 70-94% stenosis. Near occlusion - 95-99% stenosis. Occluded - 100% stenosis. MRI/MRA Neck without Contrast IMPRESSION: Unremarkable MRA neck. ALL ABOVE CRITERIA BY NASCET. Electronically Signed: Kaleb Grimes MD at 17:15 EDT ,
--- NOTE | 2021-10-01 13:05 | MRI_ITS ---
EXAM: MR HEAD WITHOUT INTRAVENOUS CONTRAST CLINICAL INDICATION: diplopia TECHNIQUE: Multiplanar and multisequence MR images of the brain were obtained without intravenous contrast. This report was created using [employer] report generation technology. COMPARISON: ct head done yesterday FINDINGS: BRAIN AND EXTRA-AXIAL SPACES: Unremarkable. No intra- or extra-axial hemorrhage. No evidence of acute infarct. No intracranial mass or mass effect. There is preservation of the ellis/white matter interface. Posterior fossa structures are unremarkable. Ventricles are appropriate for age. No hydrocephalus. Basal cisterns are patent. SELLA: Unremarkable. Normal sella turcica, pituitary gland, infundibular stalk, optic chiasm and hypothalamus. AUDITORY SYSTEM: Unremarkable. The internal auditory canals are patent. BONES/JOINTS: Unremarkable. No discrete lytic or blastic abnormalities. SINUSES: Unremarkable as visualized. Clear. MASTOID AIR CELLS: Unremarkable as visualized. Clear. ORBITS: Unremarkable as visualized. Both globes, extraocular muscles, optic nerves and retrobulbar fat appear unremarkable. VASCULATURE: Unremarkable as visualized. Normal flow voids in the major intracranial circulation. MRI/Brain without Contrast IMPRESSION: Negative MRI brain without intravenous contrast. Electronically Signed: Kaleb Grimes MD at 17:14 EDT ,
[2021-10-01] MEDS: Aspirin 325 MG Tablet PO (14:06)
--- NOTE | 2021-10-01 15:15 | CASEMGMT ---
Addendum entered by Adrianna Peters 10/01/21 15:52: Pt still out of dept for MRI. Otilio HADDAD CM Original Note: This RN CM to room with VANG form and pt is out of dept for testing. Otilio HADDAD CM
--- NOTE | 2021-10-01 16:00 | CASEMGMT ---
Pt returned from MRI and this RN CM to room with VANG form, explanation done-pt voices understanding, and signs VANG form. Original to chart and copy to pt. Pt voices no further questions/concerns/needs. SStaten BOO CM
[2021-10-01 16:46] LABS: Bedside Glucose 480 mg/dL (74-106)
[2021-10-01] MEDS: Insulin Lispro 100 UNIT/ML INSULN.PEN 15 UNIT SC (16:56)
[2021-10-01 17:44] LABS: Glucose 483 mg/dL (74-106)
--- NOTE | 2021-10-01 18:12 | TELEMED_ITS ---
[facility] Telemed has confirmed receipt of a request for visit. This document confirms receipt of the order initiating the consult. To find the results of the consultation, please view the patient's reports for the scanned Telemed Consult.
[2021-10-01] MEDS: DiphenhydrAMINE 50 MG/ML Syringe 25 MG IV (21:49)
[2021-10-01] MEDS: Metoclopramide 10 MG/2 ML Vial IV (21:50)
[2021-10-01] MEDS: Ketorolac 15 MG/ML Vial IV (21:51)
[2021-10-01] MEDS: 0.9% Saline Lock 10 ML Syringe IV (21:52)
[2021-10-02] VITALS (7 sets, daily range): BP systolic 121–137; BP diastolic 73–87; PULSE 81–104; RESP 16–20; TEMP 36.7–36.8; O2SAT 94–96
[2021-10-02] MEDS: 0.9% Normal Saline 1,000 ML 150 ML IV ×2 (01:24→08:11)
[2021-10-02 02:56] LABS: Bedside Glucose 321 mg/dL (74-106)
[2021-10-02 06:30] LABS: Bedside Glucose 313 mg/dL (74-106)
[2021-10-02 06:45] LABS: Cholesterol 140 mg/dL (200); High Density Lipoprotein 28 mg/dL; Triglycerides 290 mg/dL; Very Low Density Lipoprotein 58 mg/dL (5-40)
[2021-10-02 07:25] LABS: Bedside Glucose 414 mg/dL (74-106)
[2021-10-02 07:25] LABS: Bedside Glucose 363 mg/dL (74-106)
[2021-10-02] MEDS: Magnesium Hydroxide 30 ML UDC 15 ML PO ×2 (08:14→12:59)
[2021-10-02] MEDS: Aspirin 81 MG TAB.CHEW PO (08:14)
[2021-10-02] MEDS: Tamsulosin HCl 0.4 MG Capsule 0.8 MG PO (08:15)
[2021-10-02] MEDS: Insulin Glargine-YFGN 100 UNIT/ML Pen 30 UNIT SC (08:15)
[2021-10-02] MEDS: Insulin Lispro 100 UNIT/ML INSULN.PEN SC ×3 (08:16→18:16)
[2021-10-02] MEDS: Insulin Lispro 100 UNIT/ML INSULN.PEN 8 UNIT SC (08:16)
--- NOTE | 2021-10-02 08:18 | PCM.PN.HOSP ---
Subjective Subjective Still with visual changes. Sees a trail when looking at objects. Objective Data Objective Data Vital Signs: Vital Signs Temp Pulse Resp BP Pulse Ox O2 Del Method 36.7 C 81 20 H 129/77 H 94 Room Air 10/02/21 05:20 10/02/21 07:09 10/02/21 05:20 10/02/21 05:20 10/02/21 07:18 10/02/21 07:18 Oxygen Delivery Method Room Air Weight: 115.7 kg Body Mass Index (BMI) 36.6 Intake & Output: Intake and Output for Last 24 Hours 09/30/21 10/01/21 10/02/21 23:59 23:59 23:59 Intake Total 3342.5 / 3342.5 6225 / 6225 2250 / 2250 Output Total 250 / 250 4875 / 4875 1250 / 1250 Balance 3092.5 / 3092.5 1350 / 1350 1000 / 1000 Lab / Micro Data Result Diagrams: 10/01/21 06:02 10/01/21 17:00 Labs: Laboratory Results - last 24 hr 10/01/21 06:02: Hemoglobin A1c 11.4 H 10/01/21 11:08: POC Glucose 371 H 10/01/21 11:56: Troponin I High Sens 30 10/01/21 16:31: POC Glucose 480 H* 10/01/21 17:00: Glucose 483 H* 10/01/21 21:47: POC Glucose 414 H 10/01/21 21:48: POC Glucose 363 H 10/02/21 02:34: POC Glucose 321 H 10/02/21 04:45: Triglycerides 290 H, Cholesterol 140, LDL Cholesterol 54, VLDL Cholesterol 58 H, HDL Cholesterol 28 L 10/02/21 06:14: POC Glucose 313 H Radiography Diagnostic Testing: Radiology Impression Brain MRI 10/01/21 13:05 IMPRESSION: Negative MRI brain without intravenous contrast. Electronically Signed: Kaleb Grimes MD at 17:14 EDT , Echocardiogram 10/01/21 13:05 Interpretation Summary The study was technically difficult. Contrast injection was performed. Left ventricular systolic function is normal. The estimated ejection fraction is 70 %. No evidence for diastolic dysfunction. Bubble contrast study negative for right to left interatrial shunt. Ordering Physician: Ricky Daniels Referring Physician: Nelson Xiong Performed By: Nils Sandoval RCS Head MRA 10/01/21 13:05 IMPRESSION: There are no acute findings of the [place] without a demonstrated aneurysm or hemodynamically significant stenosis. ALL ABOVE CRITERIA BY NASC. Electronically Signed: Kaleb Grimes MD at 17:35 EDT , Neck MRA 10/01/21 13:05 IMPRESSION: Unremarkable MRA neck. ALL ABOVE CRITERIA BY NASCET. Electronically Signed: Kaleb Grimes MD at 17:15 EDT , Physical Exam Const alert and no apparent distress Constitutional Narrative: Had the patient try to read some items on the menu as well as my phone and also on a truck. Patient looked at a truck and said he saw an ambulance when it was clearly a delivery truck. There is numbers on the truck and he want to read them off and he read 4. There is no for in the number whatsoever. Patient was tempted to read the menu and said he read pancakes where it was clearly cinnamon that he was reading. Assessment & Plan Assessment/Plan (1) Diabetes mellitus, type II: QUALIFIERS: Diabetes mellitus complication status: with other specified complication Diabetes mellitus middle or intermediate school principal insulin use: without halfway use Qualified Code(s): E11.69 - Type 2 diabetes mellitus with other specified complication (2) SHANTAL (acute kidney injury): (3) Hyponatremia: PLAN: Plan 1. Diabetes mellitus type 2, uncontrolled Patient had been treated with diabetes in the past with metformin but was stopped due to felt the patient no longer being diabetic, according to the patient. Improved Plan: Clarification: Patient does not have DKA. We will get the patient a dose of Humalog and then initiate him on basal insulin. Patient will be on prandial insulin moving forward Dietary to give instructions. Patient has a bottle of Mountain Dew in his room but he states that he just filled with water and does not drink soda pops normally. States he does drink Too-Aid but low sugar as well as ice tea. Patient advised simply not to drink his calories. Patient will have other diabetic instructions regards to using glucometer and administering insulin. a1c 11.4 Patient is clearly illiterate though he can reach he has limited comprehension about other words that he reads. He is reading at a very minimal gradeschool level if that. Complicating this is his visual changes as well. Patient became very angry when I was able to recognize that he was illiterate and addressed that with him directly. He was dismissive of his literacy saying that he is gotten by all these years despite that. I told him that it very concerned because he is going to be required to read a glucometer as well as follow-up instructions. He said that he will he will get by. I did have the nurse observe him be able to administer insulin which she was able to click properly and as well as check his glucose and read glucometer which she was also apparently able to do. I do not feel the patient would be able to follow instructions regards to prandial as well as basal insulin. Therefore I would have the patient do twice daily basal insulin and checking his blood sugar. I would be very concerned about him having prandial insulin and giving himself potentially large fatal dose of insulin if he were to have that confused with the basal. 2. Acute kidney injury Resolved. Likely due to the polyuria Plan: IV fluids and follow-up labs. 3. Hyponatremia Improved Pseudohyponatremia due to the hyperglycemia. 4. Diplopia onset 09/28 recent optometry eval a few weeks ago that pt reports as normal MRI/MRA negative for CVA Seen by [facility] teleneurology: suspect pt may have intrinsic ophthalmologic disease and recommend ophthalmology evaluation. 5.VTE prophylaxis: Not indicated given that the patient is observation status. Charges/Coding Visit Charges Inpatient E&M: 99184 Subs Hosp L2
[2021-10-02] MEDS: Insulin Glargine-YFGN 100 UNIT/ML Pen 45 UNIT SC (08:25)
--- NOTE | 2021-10-02 11:37 | CASEMGMT ---
Glucometer to be e-scribed to [facility] pharmacy so that they can send up for pt to be taught on. Call to [facility] pharmacy to notify of same. Otilio HADDAD CM
[2021-10-02] MEDS: Insulin Lispro 100 UNIT/ML INSULN.PEN 10 UNIT SC ×2 (11:56→16:15)
--- NOTE | 2021-10-02 12:11 | NURSING ---
3823 pt visibly upset and pulling at pox prob and saying you called me stupid so im leaving to dr. ambrosio. this rn in room during episode. pt picks up menu and trying to read words though not able to get any of them right and getting more upset. telljosep pt concerns over saftey going home and not being able to read numbers on glucometer and possibly overdosing on insulin with numbers not being read rt on pen. pt given option of leaving but aware that would not get directions or insulin and risks of coming rt back or dying. ok to take monitor off and iv out as pt also wanting to shower here. finally agreeable to staying to have nursing work with him on giving self shots. cm to get glucometer from pharm to use so can monitor how does.
[2021-10-02 12:20] LABS: Bedside Glucose 273 mg/dL (74-106)
--- NOTE | 2021-10-02 12:47 | CASEMGMT ---
Per Dr. Daniels, list of local, in-network opthamologists printed and Ebonie, [facility] medical records secretary, will see where pt would like to go and make appt for pt. Otilio HADDAD CM
--- NOTE | 2021-10-02 13:47 | DCINST_ITS ---
Discharge Instructions Diet Discharge Diet: 2000 Calorie Control Diet Follow Up Care Test Results: Test results from this visit will be discussed in further detail at your follow- up appointment, if applicable. Discharge Plan Admission Admit Date/Time: 09/30/21 12:08 Primary Reason for Your Visit: Diabetes mellitus type 2. Attending Provider: Ricky Daniels Primary Care Provider: Nelson Xiong Discharge Orders/Prescriptions Prescriptions: New insulin glargine-yfgn 100 unit/mL (3 mL) Insulin Pen 25 unit subcut BID Qty: 15 0RF Continued tamsulosin 0.4 MG capsule 0.8 mg PO 1XD Rx Instructions: pt gives multiple answers for same questions Other Ambulatory Orders: Glucometer (Routine) Location: None Selected Ordered By: Dr. Ricky Daniels Referrals / Follow Up: Roman La MD [STAFF PHYSICIAN] - 10/04/21 1:00 pm Nelson Xiong DO [Primary Care Provider] - Within 1 Week Disposition Disposition (needs filled in before D/C Order can be placed): Home Health Service
--- NOTE | 2021-10-02 13:48 | CHAPLAIN ---
Type of Pastoral Visit _x__ Initial Visit ___ Follow-up Visit ___ On-call Visit ___ General Patient Visit ___ Spiritual Assessment ___ Family Conference ___ Bereavement ___ Rapid Response ___ Code Blue ___ Other (describe below) Pastoral Care Referral From ___ Patient ___ Family ___ Nurse ___ Physician ___ Team Facilitator ___ Student Assistant _x__ Other (describe below) Sacrament/Intervention _x__ Active listening ___ Anointing ___ Congregational ___ Bereavement ___ Communion ___ Rosalie exploration ___ ___ Life review ___ Prayer ___ Reconciliation ___ Sacrament of Sick _x__ Supportive presence ___ Wedding ___ Other (describe below) Pastoral Comments introduced self and role of the it infrastructure architect; patient asks why he is being seen by this it infrastructure architect; this it infrastructure architect responded that he was a referral to give support, someone to talk with, and offer care; pt said he didn't ask for that; offer to provide support and presence; pt rants about doctors go to school for 10-20 years and don't have any answers, so they better go back to school for 20 more years and get an answer, they sure will bill for this; much listening and offer of support given again; pt says I'm fine and I want to go home;
--- NOTE | 2021-10-02 13:51 | DS.PCM_ITS ---
Providers Date of Admission: 09/30/21 Date of Discharge: 10/02/21 Primary Care Physician: Dr. Nelson Xiong DO Reason For Visit: UNCONTROLLED DM2 Diagnosis Discharge Diagnosis (1) Diabetes mellitus, type II: Status: Chronic Code(s): E11.9 - Type 2 diabetes mellitus without complications Qualifiers: Diabetes mellitus supervisor intermediates insulin use: without half-way use Diabetes mellitus complication status: with other specified complication Qualified Code(s): E11.69 - Type 2 diabetes mellitus with other specified complication (2) SHANTAL (acute kidney injury): Status: Acute Code(s): N17.9 - Acute kidney failure, unspecified (3) Hyponatremia: Status: Acute Code(s): E87.1 - Hypo-osmolality and hyponatremia Plan 1. Diabetes mellitus type 2, uncontrolled Patient had been treated with diabetes in the past with metformin but was stopped due to felt the patient no longer being diabetic, according to the patient. Improved Plan: * Clarification: Patient does not have DKA. * We will get the patient a dose of Humalog and then initiate him on basal insulin. Patient will be on prandial insulin moving forward * Dietary to give instructions. Patient has a bottle of Mountain Dew in his room but he states that he just filled with water and does not drink soda pops normally. States he does drink Too-Aid but low sugar as well as ice tea. Patient advised simply not to drink his calories. * Patient will have other diabetic instructions regards to using glucometer and administering insulin. * a1c 11.4 * Patient is clearly illiterate though he can reach he has limited comprehension about other words that he reads. He is reading at a very minimal gradeschool level if that. Complicating this is his visual changes as well. Patient became very angry when I was able to recognize that he was illiterate and addressed that with him directly. He was dismissive of his literacy saying that he is gotten by all these years despite that. I told him that it very concerned because he is going to be required to read a glucometer as well as follow-up instructions. He said that he will he will get by. I did have the nurse observe him be able to administer insulin which she was able to click properly and as well as check his glucose and read glucometer which she was also apparently able to do. I do not feel the patient would be able to follow instructions regards to prandial as well as basal insulin. Therefore I would have the patient do twice daily basal insulin and checking his blood sugar. I would be very concerned about him having prandial insulin and giving himself potentially large fatal dose of insulin if he were to have that confused with the basal. 2. Acute kidney injury Resolved. Likely due to the polyuria Plan: IV fluids and follow-up labs. 3. Hyponatremia Improved Pseudohyponatremia due to the hyperglycemia. 4. Diplopia onset 09/28 recent optometry eval a few weeks ago that pt reports as normal MRI/MRA negative for CVA Seen by [facility] teleneurology: suspect pt may have intrinsic ophthalmologic disease and recommend ophthalmology evaluation. 5.VTE prophylaxis: Not indicated given that the patient is observation status. Medications at Discharge Home Medications tamsulosin 0.4 mg capsule 0.8 mg PO 1XD 10/04/15 insulin glargine-yfgn 100 unit/mL (3 mL) subcutaneous pen 25 unit (0.25 mL) subcut BID #15 mL 10/02/21 Hospital Course Operations None Procedures 2-D Echocardiogram Summary of Care Provided Minutes Spent on Discharge: 50 Weight / BMI Weight Weight: 115.7 kg Body Mass Index (BMI) 36.6 ABG / Lab / Microbiology Data Result Diagrams: 10/01/21 06:02 10/01/21 17:00 Laboratory: Laboratory Results - last 24 hr 10/01/21 16:31: POC Glucose 480 H* 10/01/21 17:00: Glucose 483 H* 10/01/21 21:47: POC Glucose 414 H 10/01/21 21:48: POC Glucose 363 H 10/02/21 02:34: POC Glucose 321 H 10/02/21 04:45: Triglycerides 290 H, Cholesterol 140, LDL Cholesterol 54, VLDL Cholesterol 58 H, HDL Cholesterol 28 L 10/02/21 06:14: POC Glucose 313 H 10/02/21 11:54: POC Glucose 273 H Radiography Diagnostic Testing: Radiology Impression Brain MRI 10/01/21 13:05 IMPRESSION: Negative MRI brain without intravenous contrast. Electronically Signed: Kaleb Grimes MD at 17:14 EDT , Echocardiogram 10/01/21 13:05 Interpretation Summary The study was technically difficult. Contrast injection was performed. Left ventricular systolic function is normal. The estimated ejection fraction is 70 %. No evidence for diastolic dysfunction. Bubble contrast study negative for right to left interatrial shunt. Ordering Physician: Ricky Daniels Referring Physician: Nelson Xiong Performed By: Nils Sandoval RCS Head MRA 10/01/21 13:05 IMPRESSION: There are no acute findings of the [place] without a demonstrated aneurysm or hemodynamically significant stenosis. ALL ABOVE CRITERIA BY NASCET. Electronically Signed: Kaleb Grimes MD at 17:35 EDT , Neck MRA 10/01/21 13:05 IMPRESSION: Unremarkable MRA neck. ALL ABOVE CRITERIA BY NASCET. Electronically Signed: Kaleb Grimes MD at 17:15 EDT , D/C Instructions Discharge Diet: 2000 Calorie Control Diet Meaningful Use Info Meaningful Use Diagnoses (Choose all that apply): None applicable Discharge Plan Admission Admit Date/Time: 09/30/21 12:08 Primary Reason for Your Visit: Diabetes mellitus type 2. Attending Provider: Ricky Daniels Primary Care Provider: Nelson Xiong Discharge Orders/Prescriptions Prescriptions: New insulin glargine-yfgn 100 unit/mL (3 mL) Insulin Pen 25 unit subcut BID Qty: 15 0RF Continued tamsulosin 0.4 MG capsule 0.8 mg PO 1XD Rx Instructions: pt gives multiple answers for same questions Other Ambulatory Orders: Glucometer (Routine) Location: None Selected Ordered By: Dr. Ricky Daniels Referrals / Follow Up: Roman La MD [STAFF PHYSICIAN] - 10/04/21 1:00 pm Nelson Xiong DO [Primary Care Provider] - Within 1 Week Disposition Disposition (needs filled in before D/C Order can be placed): Home Health Service Charges/Coding Visit Charges Inpatient E&M: 48228 Disch Hosp
--- NOTE | 2021-10-02 14:48 | CASEMGMT ---
Social Work Telephone call [facility] Shagu[place]a. This social services inquired if patient has a nursing care attendant. Shagufta reports that patient is eligible for waiver program but that patient does not have a nursing care attendant. Shagufta reports to be unsure as to why patient does not have a nursing care attendant and we will look into this. Shagufta taking this social workers contact information and jamie Gold will call back in 24-48hours in regards to case management status for patient. Reference number for call was [phone]. paint line operator updated. Rogelio MIRZA, HOOKER INSPECTOR-S
--- NOTE | 2021-10-02 16:10 | CASEMGMT ---
Per [facility], pt's insulin script for Semglee needs a prior auth. Per [facility] formulary, Semglee is not on formulary. Dr. Daniels aware and Karol, pharmacist, aware and both state that Lantus is the equivalent, long acting and this is on formulary as tier [address]. [address] Daniels, verbal order for pt to have Lantus 25 units subq twice daily instead of Semglee and this RN CM placed call to [facility] again and pharmacist given verbal order for same. Per pharmacist, med went thru for pens and $0 co-pay. Dr. Daniels and Bindu HADDAD updated, voice understanding. Otilio RN CM
--- NOTE | 2021-10-07 11:07 | CASEMGMT ---
JASMEET received a phone call from Kimberli Horn with [facility]. She is patient's rehabilitation case coordinator. JASMEET let her know when patient was discharged home. Mckenzie GOINS
--- NOTE | 2021-10-09 10:56 | CCN.REFER ---
UNABLE TO REACH PATIENT. VM LEFT 10/03 AND 10/08 WITH NO RETURNED CALLS ON [phone]. WILL CONTINUE TO KEEP TRYING TO REACH PATIENT
--- NOTE | 2021-10-14 10:10 | CCN.REFER ---
FINALLY ABLE TO CONNECT WITH PATIENT VIA T/C. ADAMANTLY DECLINES THIS RN OR ANY CCN STAFF TO MAKE HOME VISIT. STATES HE WILL NOT ALLOW ANYONE TO HOME BECAUSE IT IS MESSY AND GROSS. EDUCATION PROVIDED THAT WE ARE OKAY WITH THIS THAT WE WANT TO HELP HIM WITH HIS DIABETES. PATIENT VOICED THAT HE DOES NOT NEED ANYONE TO CHECK ON HIM BECAUSE HE HAS AN AIDE THAT COMES ON THURSDAYS. HE STATES THAT HE IS SOMETIMES TAKING INSULIN AND SOMETIMES CHECKING BLOOD SUGARS. EDUCATION PROVIDED ON DIABETES, RISKS ASSOCIATED WITH NON COMPLIANCE, DIET, ETC. PATIENT DOES NOT FEEL HE IS DIABETIC BECAUSE DR EPPERSON TOLD HIM OTHERWISE. REVIEWED LABS AND MEDICATIONS W/ PATIENT ON THE PHONE. DISCUSSED A1C RESULTS WELL. PATIENT STATES HE CONTINUES TO HAVE POOR VISION. HE DID GO TO 10/[address] CHEEK. STATES THAT IT WAS A WORTHLESS VISIT. PATIENT DECLINES THIS RN TO CONTACT EYE DOCTOR OR PCP. STATES HAS PCP FOLLOW UP 10/18. LEFT THIS RN'S CELL PHONE NUMBER WITH PATIENT TO CONTACT IF HE CHANGES MIND ON HOME VISIT.
== END 2021-10-02 15:46 | disposition home health service (06) ==
LOC: ED 12:16 → MS3 12:32 → PCU 10-01 13:20
PROVIDERS: Emergency Provider Student in an Organized Health Care Education/Training Program; PCP Family Medicine
DX: E11.65 Type 2 diabetes mellitus with hyperglycemia (principal); N17.9 Acute kidney failure, unspecified; E11.43 Type 2 diabetes mellitus with diabetic autonomic (poly)neuropathy; R42 Dizziness and giddiness; Z79.84 Long term (current) use of oral hypoglycemic drugs; I10 Essential (primary) hypertension; H53.2 Diplopia; E87.1 Hypo-osmolality and hyponatremia; R35.89 Other polyuria; F17.210 Nicotine dependence, cigarettes, uncomplicated; Z79.899 Other long term (current) drug therapy
CPT/HCPCS: 36415; 70450; 70544; 70547; 70551; 71045; 80048; 80053; 80061; 81001; 82947; 82962; 83036; 84443; 84484; 85025; 93005; 93306; 94762; 96361; 96374; 96375; 97162; 97165; 97802; 99218; 99285; J7030; Q9957; A4216; C8929; G0378; J2405

== ENCOUNTER 2021-10-30 00:59 | Observation (INO) | payer MEDICARE, MEDICAID, SELFPAY ==
[2021-10-30] VITALS (9 sets, daily range): BP systolic 107–144; BP diastolic 57–102; PULSE 74–100; RESP 15–19; TEMP 36.4–36.9; O2SAT 92–100; BMI 37.3; BMI 35.3
--- NOTE | 2021-10-30 01:04 | RAD_ITS ---
INDICATION: confusion EXAMINATION/TECHNIQUE: X-RAY - XR Chest 1 View COMPARISON: Chest x-ray from 09/30/2021 FINDINGS: LINES/DEVICES: None. LUNGS: No pulmonary edema or focal airspace consolidation. Small linear opacity lateral left lung base. No sizable pleural effusion. No pneumothorax detected. MEDIASTINUM AND CARDIOVASCULAR STRUCTURES: Heart size within normal limits. Mediastinal contours unremarkable. BONES AND SOFT TISSUES: No acute findings. RAD/Chest 1 View (Portable) IMPRESSION: Mild left basilar linear scarring versus atelectasis. Electronically Signed: Nelson Keene MD at 3:15 EDT ,
--- NOTE | 2021-10-30 01:04 | CT_ITS ---
INDICATION: mental status change, diabetes, hypertension EXAMINATION: CT Head or Brain W/O Contrast Injection TECHNIQUE: Multiple axial images were obtained of the head without intravenous contrast. A radiation dose optimization technique was used for this scan. IV Contrast dosage and agent: None. COMPARISON: Head CT from 09/30/2021 FINDINGS: BRAIN PARENCHYMA: No intra- or extra-axial hemorrhage. No evidence of acute major territorial infarct. No intracranial mass or mass effect. Mild, chronic deep cerebral white matter lucencies are present. Unremarkable posterior fossa structures. CSF SPACES: Appropriate for age. No hydrocephalus. Basal cisterns are patent. CALVARIUM, SKULL BASE, PARANASAL SINUSES AND MASTOID AIR CELLS: Calvarium is intact. No acute findings within imaged paranasal sinuses. Mastoid air cells are well-pneumatized. ORBITS: No acute findings. ASPECTS Score for Acute Strokes: 10 CT/Brain/Head without Contrast IMPRESSION: Mild chronic small vessel white matter disease. No evidence of acute intracranial abnormality. Electronically Signed: Nelson Keene MD at 3:18 EDT ,
--- NOTE | 2021-10-30 01:05 | EKG12_ITS ---
Test Reason : gen ill Blood Pressure : / mmHG Vent. Rate : 110 BPM Atrial Rate : 110 BPM P-R Int : 158 ms QRS Dur : 096 ms QT Int : 340 ms P-R-T Axes : 066 -75 050 degrees QTc Int : 460 ms Sinus tachycardia Left axis deviation Low voltage QRS Possible Anterolateral infarct , age undetermined Abnormal ECG Confirmed by NABIL BOBO, JUDE ([id number]), digital editor HUBERT OSORIO ([id number]) on 10/31/2021 2:05:15 PM Referred By: Confirmed By:JUDE FERRER MD
--- NOTE | 2021-10-30 01:06 | EDS_ITS ---
HPI History of Present Illness Chief Complaint: Hyperglycemia Detail of Chief Complaint: None mental status change Informant: patient and EMS Narrative Narrative: Patient presents to the emergency department with mental status change and hy perglycemia. Apparently police went out the patient's residence for a welfare check and it is unclear who called them. Patient was found to be altered and EMS was called. EMS checked her blood sugar initially was 480 and a second blood sugar was in the 500s. Patient was alert only to person and not time or place. Patient was discussed with me by EMS because initially patient refused to come to the hospital to be evaluated. Given the patient's altered mental status and elevated blood sugars I felt he needed to be evaluated and could not sign off. Patient was brought to the emergency department after receiving 5 mg of Haldol IM and apparently did agree to come to the emergency department ultimately. Patient denies recent illness. He denies nausea or vomiting. He denies chest pain or abdominal pain. He does have history of diabetes. Patient has history of prostate issues. Prior similar symptoms: No PFSH PFSH Medical History (Updated 10/30/21 @ 03:[address] Stefano Roper DO) BPH (benign prostatic hyperplasia) Chronic pain syndrome Diabetes mellitus, type II Failure to thrive Gastroparesis due to DM History of BPH History of opioid abuse Hypertension Illiterate Neuropathy Tobacco use Urinary tract infection with hematuria Home Medications tamsulosin 0.4 mg capsule 0.8 mg PO 1XD 10/04/15 [History Last Taken 04/06/19] insulin glargine-yfgn 100 unit/mL (3 mL) subcutaneous pen 25 unit (0.25 mL) subcut BID #15 mL 10/02/21 [Rx Last Taken Unknown] Allergy/AdvReac Type Severity Reaction Status Date / Time No Known Allergies Allergy Verified 10/30/21 01:11 Family History (Updated 09/30/21 @ 12:[address] Ricky Daniels DO) Other Diabetes Surgical History Status post ORIF of fracture of ankle Social History (Updated 09/30/21 @ 12:[address] Ricky Daniels DO) Smoking Status: Current every day smoker tobacco type: cigarettes alcohol intake: former substance use type: does not use ROS ROS ED ROS Narrative Hyperglycemia Review of Systems ROS Unobtainable: other Constitutional Constitutional ED: Reports lethargy; Denies chills, fever(s), sweats or weight loss Eyes Eyes: Denies blurry vision, change in vision or diplopia ENT ENT ED: Denies rhinorrhea or sore throat Cardiovascular Cardiovascular: Reports chest pain and racing heartbeat; Denies orthopnea Respiratory/Chest Respiratory/Chest: Reports dyspnea and dyspnea on exertion; Denies cough, orthopnea or sputum Gastrointestinal Gastrointestinal: Denies abdominal pain, diarrhea, nausea or vomiting Genitourinary Genitourinary ED: Denies dysuria, hematuria or urinary frequency Musculoskeletal Musculoskeletal: Denies arthralgias, back pain, myalgias or neck pain Integumentary Denies abscess, Abrasions or rash Neurologic Neurologic: Reports other Details: Mental status change/confusion ; Denies headache(s) or weakness Psychiatric Psychiatric: Denies anxiety, depression or suicidal thoughts Endocrine Endocrinology: Denies polydipsia, polyphagia or polyuria Hematologic/Lymphatic Hematologic/Lymphatic: Denies easy bleeding, easy bruising or lymphadenopathy Allergic/Immunologic Allergic/Immunologic ED: Denies mouth swelling, tongue swelling or urticaria EXAM Physical Exam Const Vital Signs: 10/30/21 01:00 10/30/21 01:06 Temperature 98.2 F 98.4 F Temperature Source Temporal Temporal Pulse Rate 74 84 Respiratory Rate 15 16 Blood Pressure 128/75 H Blood Pressure Mean 92 Pulse Ox 98 98 Oxygen Delivery Method Room Air Positive well nourished and well developed General Appearance ED: well developed and NAD HEENT Reports TM's clear and moist mucous membranes normocephalic and atraumatic; Negative for trauma or tenderness Tympanic Membrane ED: Yes TM's clear Eyes PERRL and EOMs intact bilaterally General Eye ED: Negative for pale conjunctiva or scleral icterus Neck no lymphadenopathy, supple and no JVD General: Negative for tenderness Chest Wall inspection of chest normal and palpation of chest normal Chest: Negative for tenderness Resp normal respiratory effort and clear to auscultation bilaterally Effort and Inspection: Negative for respiratory distress or pain with movement Auscultation: Negative for rhonchi, wheezes or diminished lung sounds Cardio regular rate, regular rhythm, S1 normal heart sound, S2 normal heart sound and no murmurs Peripheral Pulses: pulses 2+ throughout GI normal to inspection, nondistended, normoactive bowel sounds, soft to palpation, non-tender, non-distended and no masses Back/Spine no CVA tenderness and no thoracic nor lumbar tenderness Extremity normal to inspection General Extremety ED: Negative for edema General Extremity: Negative for edema Neuro oriented x3, CN's II-XII intact bilaterally, no sensory deficits noted and gait normal Sensorium / Orientation: awake, alert, oriented to person, oriented to place and oriented to time Motor Exam: strength 5/5 throughout and strength abnormal Psych mental status grossly normal Skin no rashes or lesions noted and no wounds MDM MDM MDM Narrative Medical decision making narrative: IV line established on arrival. Patient was uncooperative and agitated on arrival. Patient had to be physically restrained and was given Ativan and Geodon. Patient lab work-up significant for slightly elevated white count of 12.8. Chemistries were unremarkable. Glucose was elevated 458 without evidence of DKA. Alcohol was negative. Acetone was negative. CT scan of the brain without contrast obtained read by radiology as chronic changes nothing acute. Patient also had a chest x-ray interpreted by myself as nothing acute and radiology in agreement. At this point etiology of patient's mental status change unclear. Case will be discussed with hospitalist evaluate for admission as I suspect he will require evaluation by high school social science teacher. Patient was given insulin 10 units subcu for his hyperglycemia. It is unclear if patient's mental status is at baseline or acute change. Lab Data Attestation: I reviewed the patient's lab results. Labs: Laboratory Results - last 24 hr 10/30/21 10/30/21 10/30/21 01:05 01:05 01:05 WBC 12.8 H RBC 5.41 Hgb 16.0 Hct 48.6 MCV 89.8 MCH 29.6 MCHC 32.9 RDW Std Deviation 44.9 H RDW Coeff of Halley 13.5 Plt Count 230 MPV 11.7 Immature Gran % (Auto) 0.300 Neut % (Auto) 65.8 Lymph % (Auto) 24.9 [place] % (Auto) 7.6 Eos % (Auto) 0.5 Baso % (Auto) 0.9 Absolute Neuts (auto) 8.5 H Absolute Lymphs (auto) 3.20 Nucleated RBC % 0 Sodium 132 L Potassium 4.2 Chloride 98 Carbon Dioxide 22.0 Anion Gap 12 BUN 22 H Creatinine 1.31 H Estim Creat Clear Calc 62.69 Est GFR (MDRD) Af Amer 72 Est GFR (MDRD) Non-Af 59 L BUN/Creatinine Ratio 16.8 Glucose 458 H* Calcium 9.5 Total Bilirubin 0.80 AST 15 ALT 27 Alkaline Phosphatase 146 H Troponin I High Sens 23 Total Protein 8.1 Albumin 4.1 Globulin 4.0 Albumin/Globulin Ratio 1.0 Ethyl Alcohol < 3.0 Acetone Level NEGATIVE Radiography Diagnostic Testing: Clinical Impression(s) from Imaging Studies Brain CT 10/30/21 01:04 IMPRESSION: Mild chronic small vessel white matter disease. No evidence of acute intracranial abnormality. Electronically Signed: Nelson Keene MD at 3:18 EDT , Chest X-Ray 10/30/21 01:04 IMPRESSION: Mild left basilar linear scarring versus atelectasis. Electronically Signed: Nelson Keene MD at 3:15 EDT , EKG Initial EKG: Attestation: I personally reviewed and interpreted this EKG as follows: Comments: Sinus rhythm with a rate of 110 bpm with old inferior infarct Discharge Plan Dx/Rx/DC Orders Clinical Impression: Altered mental status, Acute hyperglycemia, History of diabetes mellitus Disposition Disposition: Acute Care Hospital [facility]
[2021-10-30 01:14] LABS: Absolute Neutrophil Count 8.5 X10^3/uL (2.0-7.7); Basophil# 0.11 X10^3/uL; Basophil% 0.9 % (0-1); Eosinophil# 0.06 X10^3/uL; Eosinophils% 0.5 % (0-5); Hematocrit 48.6 % (40-54); Lymphocyte % 24.9 % (19-41); Mean Corp Hgb Conc 32.9 g/dL (32-36); Mean Corpuscular Hgb 29.6 pg (27.0-32.0); Mean Corpuscular Volume 89.8 fL (80-94); Mean Platelet Vol. 11.7 fl (6.2-12.0); Monocyte# 0.97 X10^3/uL; Monocyte% 7.6 % (0-10); NRBC Flagged by Analyzer 0 % (0-5); Neutrophil # 8.45 X10^3/uL (2.7-7.7); Neutrophil % 65.8 % (47-70); Platelet Count 230 K/mm3 (150-450); RBC Distribution Width CV 13.5 % (11.6-14.6); RBC Distribution Width SD 44.9 fl (35.1-43.9); Red Blood Count 5.41 M/mm3 (4.6-6.2); White Blood Count 12.8 K/mm3 (4.4-11.0)
[2021-10-30] MEDS: 0.9% Normal Saline 1,000 ML 150 ML IV (01:17)
[2021-10-30] MEDS: Ziprasidone IM 20 MG/ML VIAL IM (01:17)
[2021-10-30] MEDS: LORazepam 2 MG/ML Syringe 1 MG IV (01:17)
[2021-10-30 01:33] LABS: Alcohol, Blood (Medical)-Serum < 3.0 mg/dL
[2021-10-30 01:47] LABS: AST(SGOT) 15 U/L (15-37); Alanine Aminotransfer ALT/SGPT 27 U/L (16-61); Albumin, Serum 4.1 g/dL (3.2-5.0); Alkaline Phosphatase 146 U/L (45-117); Anion Gap 12 (5-15); BUN 22 mg/dL (7-18); BUN/Creat Ratio 16.8 RATIO (10-20); Calcium,Total 9.5 mg/dL (8.5-10.1); Chloride 98 mmol/L (98-107); Creatinine, Serum 1.31 mg/dL (0.70-1.30); EST Glomerular Filtration Rate 59 mL/min (>60); Est Glom Filt Rate - Afr Amer 72 mL/min (>60); Estimated Creatinine Clearance 62.69 ml/min; Glucose 458 mg/dL (74-106); Potassium 4.2 mmol/L (3.5-5.1); Protein, Total 8.1 g/dL (6.4-8.2); Sodium Level 132 mmol/L (136-145); Troponin-I HS (w/2H Reflex) 23 pg/mL (3.0-78.0)
[2021-10-30] MEDS: Insulin Lispro 100 UNIT/ML INSULN.PEN 10 UNIT SC (02:30)
--- NOTE | 2021-10-30 02:45 | NURSING ---
Patient down to 2 restraints RW and LA. Tolerating well. No skin breakdown noted.
[2021-10-30 03:11] LABS: Reflex Troponin-HS? (from REC) Y
--- NOTE | 2021-10-30 03:41 | HP.PCM.HOS_ITS ---
HPI - General General Date of Admission: 10/30/21 Date of Service: 10/30/21 Chief Complaint: Altered mental status - 1 day HPI Narrative MICHELLE FERRER, is a 61 M who presents with the above. Patient 61-year-old male past medical history of type II DM, insulin-dependent, reported history of disability, who was recently discharged from the hospital after admission with hyperglycemia and acute kidney injury. History was obtained from review of chart and from ED physician as patient was sedated. The police was performing a wellness check on patient. Its unclear reason why they would perform this check or who called the police to perform a wellness check. Patient was reportedly confused. The EMS was called. Patient was found walking in his kitchen, confused. Oriented only to self. His blood sugar was 481. Patient was observed to be agitated and ordering everyone to leave. He was determined to go outside to feed his cats. Patient was given Haldol IM 5mg x 1 by EMS crew. He reportedly took it willingly in his left biceps. In the emergency room, patient was severely agitated, exhibiting violent behavior. He was given Geodon 20 mg IM x1 as well as Ativan 1 mg IV x1. He was put in 4 point restraints. His vitals show blood pressure 128/75, heart rate 74, respiratory 15, temperature 98.2 F, oxygen saturation 98% on room air. His RBC count 12.8, hemoglobin 13.0, platelet count 230, sodium is 132, potassium 4.2, chloride 98, bicarbonate 22, BUN 22, creatinine 1.31, previous creatinine 0.79, his blood sugar was 458. He received 10 units of lispro insulin subcu. His repeat blood sugar 365. His most recent HbA1c is 11.4. CT of the brain showed mild chronic small vessel white matter disease. No evidence of acute intracranial abnormality. Chest x-ray showed mild left basilar linear scarring versus atelectasis. [facility] Medical History BPH (benign prostatic hyperplasia) Chronic pain syndrome Diabetes mellitus, type II Failure to thrive Gastroparesis due to DM History of BPH History of opioid abuse Hypertension Illiterate Neuropathy Tobacco use Urinary tract infection with hematuria Home Medications tamsulosin 0.4 mg capsule 0.8 mg PO 1XD 10/04/15 [History Last Taken 04/06/19] insulin glargine-yfgn 100 unit/mL (3 mL) subcutaneous pen 25 unit (0.25 mL) subcut BID #15 mL 10/02/21 [Rx Last Taken Unknown] Allergy/AdvReac Type Severity Reaction Status Date / Time No Known Allergies Allergy Verified 10/30/21 01:11 Family History (Updated 09/30/21 @ 12:[address] Ricky Daniels DO) Other Diabetes unable to obtain Surgical History Status post ORIF of fracture of ankle Social History Smoking Status: Current every day smoker tobacco type: cigarettes alcohol intake: former substance use type: does not use ROS Review of Systems ROS Unobtainable: due to encephalopathy Vital Signs Vital Signs Vital Signs: 10/30/21 01:00 10/30/21 01:06 Temperature 98.2 F 98.4 F Temperature Source Temporal Temporal Pulse Rate 74 84 Respiratory Rate 15 16 Blood Pressure 128/75 H Blood Pressure Mean 92 Pulse Ox 98 98 Oxygen Delivery Method Room Air Weight Weight: 118 kg Body Mass Index (BMI) 37.3 Physical Exam Narrative Physical exam: General: Sedated, obese, not pale, no jaundice, moderately dehydrated HEENT: Atraumatic Oral: Dry mucosa Neck: Supple Lungs: Diminished to auscultation Cardiovascular: HS I+II, regular, no murmurs Abdomen: Bowel Sounds Present, Soft, Non Tender Extremities: No edema Skin: No rashes, No breakdown Neurological: Sedated Results Lab / Micro Data Result Diagrams: 10/30/21 01:05 10/30/21 01:05 Labs: Laboratory Results - last 24 hr 10/30/21 01:05: WBC 12.8 H, RBC 5.41, Hgb 16.0, Hct 48.6, MCV 89.8, MCH 29.6, MCHC 32.9, RDW Std Deviation 44.9 H, RDW Coeff of Halley 13.5, Plt Count 230, MPV 11.7, Immature Gran % (Auto) 0.300, Neut % (Auto) 65.8, Lymph % (Auto) 24.9, [place] % (Auto) 7.6, Eos % (Auto) 0.5, Baso % (Auto) 0.9, Absolute Neuts (auto) 8.5 H, Absolute Lymphs (auto) 3.20, Nucleated RBC % 0 10/30/21 01:05: Sodium 132 L, Potassium 4.2, Chloride 98, Carbon Dioxide 22.0, Anion Gap 12, BUN 22 H, Creatinine 1.31 H, Estim Creat Clear Calc 62.69, Est GFR (MDRD) Af Amer 72, Est GFR (MDRD) Non-Af 59 L, BUN/Creatinine Ratio 16.8, Glucose 458 H*, Calcium 9.5, Total Bilirubin 0.80, AST 15, ALT 27, Alkaline Phosphatase 146 H, Troponin I High Sens 23, Total Protein 8.1, Albumin 4.1, Globulin 4.0, Albumin/Globulin Ratio 1.0 10/30/21 01:05: Ethyl Alcohol < 3.0, Acetone Level NEGATIVE Radiology Impression Brain CT 10/30/21 01:04 IMPRESSION: Mild chronic small vessel white matter disease. No evidence of acute intracranial abnormality. Electronically Signed: Nelson Keene MD at 3:18 EDT , Chest X-Ray 10/30/21 01:04 IMPRESSION: Mild left basilar linear scarring versus atelectasis. Electronically Signed: Nelson Keene MD at 3:15 EDT , Assessment & Plan Assessment/Plan (1) Altered mental status: (2) Acute hyperglycemia: PLAN: Plan 1. Acute metabolic encephalopathy secondary to hyperglycemia Patient was alert oriented x1, agitated, required sedatives and restraints Restraints gradually being removed. Serum alcohol level less than 3 Urine tox is pending. We will continue to monitor Patient's QTC is 460 2. Type II DM complicated by peripheral neuropathy as well as gastroparesis and likely retinopathy Patient was recently admitted here 1 month ago with similar presentation of hyperglycemia and SHANTAL Patient's HbA1c is 11.4. Patient was found to have trouble with likely secondary to his disability Continue on current insulin regimen, blood glucose checks with insulin sliding scale Patient will need assistance with micromanaging diabetes long-term including daily insulin administration 3. SHANTAL, likely prerenal from dehydration, patient admitted creatinine 1.31, baseline creatinine 0.79 Continue IV fluids, repeat blood work in a.m. 4. BPH, continue Flomax 4. Nicotine dependence, will inquire if patient needs replacement when he is awake 5. Chronic pain syndrome, reported history of opioid abuse, urine tox is pending 6. Patient with chronic disability, unclear reason, probably learning disability/illiteracy This complicates care. Patient has history of recurrent admissions for similar presentation Doubt patient is able to manage his current chronic medical conditions?insulin- dependent diabetes very well Patient may need placement or assistance with medications Social work consult - need to delve more into patient's social issues for discharge planning 7. DVT PPx- Heparin SC Charges/Coding Visit Charges Inpatient E&M: 02319 Init Hosp L3
[2021-10-30 04:06] LABS: Bedside Glucose 365 mg/dL (74-106)
[2021-10-30] MEDS: Heparin Injection (Vial) 5,000 UNIT/ML VIAL 5000 UNIT SC ×3 (06:05→22:08)
[2021-10-30] MEDS: 0.9% Normal Saline 1,000 ML 100 ML IV ×2 (06:05→15:42)
[2021-10-30] MEDS: 0.9% Saline Lock 10 ML Syringe IV (06:05)
[2021-10-30] MEDS: Insulin Lispro 100 UNIT/ML INSULN.PEN SC ×4 (06:18→22:08)
[2021-10-30 06:40] LABS: Bedside Glucose 275 mg/dL (74-106)
--- NOTE | 2021-10-30 07:50 | PN.HOSP_ITS ---
Objective Data Objective Data Vital Signs: Vital Signs Temp Pulse Resp BP Pulse Ox O2 Del Method 97.9 F 80 16 107/57 L 92 Room Air 10/30/21 05:51 10/30/21 05:51 10/30/21 05:51 10/30/21 05:51 10/30/21 05:51 10/30/21 05:51 Oxygen Delivery Method Room Air Weight: 246 lb 0.574 oz Body Mass Index (BMI) 35.3 Intake & Output: Intake and Output for Last 24 Hours 10/28/21 10/29/21 10/30/21 23:59 23:59 23:59 Intake Total 595 / 595 Balance 595 / 595 Lab / Micro Data Result Diagrams: 10/30/21 01:05 10/30/21 01:05 Labs: Laboratory Results - last 24 hr 10/30/21 01:05: WBC 12.8 H, RBC 5.41, Hgb 16.0, Hct 48.6, MCV 89.8, MCH 29.6, MCHC 32.9, RDW Std Deviation 44.9 H, RDW Coeff of Halley 13.5, Plt Count 230, MPV 11.7, Immature Gran % (Auto) 0.300, Neut % (Auto) 65.8, Lymph % (Auto) 24.9, [place] % (Auto) 7.6, Eos % (Auto) 0.5, Baso % (Auto) 0.9, Absolute Neuts (auto) 8.5 H, Absolute Lymphs (auto) 3.20, Nucleated RBC % 0 10/30/21 01:05: Sodium 132 L, Potassium 4.2, Chloride 98, Carbon Dioxide 22.0, Anion Gap 12, BUN 22 H, Creatinine 1.31 H, Estim Creat Clear Calc 62.69, Est GFR (MDRD) Af Amer 72, Est GFR (MDRD) Non-Af 59 L, BUN/Creatinine Ratio 16.8, Glucose 458 H*, Calcium 9.5, Total Bilirubin 0.80, AST 15, ALT 27, Alkaline Phosphatase 146 H, Troponin I High Sens 23, Total Protein 8.1, Albumin 4.1, Globulin 4.0, Albumin/Globulin Ratio 1.0 10/30/21 01:05: Ethyl Alcohol < 3.0, Acetone Level NEGATIVE 10/30/21 03:43: POC Glucose 365 H 10/30/21 06:16: POC Glucose 275 H Radiography Diagnostic Testing: Radiology Impression Brain CT 10/30/21 01:04 IMPRESSION: Mild chronic small vessel white matter disease. No evidence of acute intracranial abnormality. Electronically Signed: Nelson Keene MD at 3:18 EDT , Chest X-Ray 10/30/21 01:04 IMPRESSION: Mild left basilar linear scarring versus atelectasis. Electronically Signed: Nelson Keene MD at 3:15 EDT , Assessment & Plan Assessment/Plan (1) Altered mental status: (2) Acute hyperglycemia: PLAN: Plan 1. Acute metabolic encephalopathy secondary to hyperglycemia Patient was alert oriented x1, agitated, required sedatives and restraints Restraints gradually being removed. Serum alcohol level less than 3 Urine tox is pending. We will continue to monitor Patient's QTC is 460 2. Type II DM complicated by peripheral neuropathy as well as gastroparesis and likely retinopathy Patient was recently admitted here 1 month ago with similar presentation of hyperglycemia and SHANTAL Patient's HbA1c is 11.4. Patient was found to have trouble with likely secondary to his disability Continue on current insulin regimen, blood glucose checks with insulin sliding scale Patient will need assistance with micromanaging diabetes long-term including daily insulin administration 3. SHANTAL, likely prerenal from dehydration, patient admitted creatinine 1.31, baseline creatinine 0.79 Continue IV fluids, repeat blood work in a.m. 4. BPH, continue Flomax 4. Nicotine dependence, will inquire if patient needs replacement when he is awake 5. Chronic pain syndrome, reported history of opioid abuse, urine tox is pending 6. Patient with chronic disability, unclear reason, probably learning disability This complicates care. Patient has history of recurrent admissions for similar presentation Doubt patient is able to manage his current chronic medical conditions?insulin- dependent diabetes very well Patient may need placement or assistance with medications Social work consult - need to delve more into patient's social issues for discharge planning 7. DVT PPx- Heparin SC
[2021-10-30 07:57] LABS: Absolute Lymphocyte Count 2.97 X10^3/uL (0.83-4.51); Absolute Neutrophil Count 5.6 X10^3/uL (2.0-7.7); Basophil# 0.07 X10^3/uL; Basophil% 0.7 % (0-1); Eosinophil# 0.16 X10^3/uL; Eosinophils% 1.7 % (0-5); Hematocrit 42.3 % (40-54); Hemoglobin 14.1 g/dL (13.0-16.5); Lymphocyte # 2.97 X10^3/ul (0.83-4.51); Lymphocyte % 30.9 % (19-41); Mean Corp Hgb Conc 33.3 g/dL (32-36); Mean Corpuscular Hgb 29.8 pg (27.0-32.0); Mean Corpuscular Volume 89.4 fL (80-94); Mean Platelet Vol. 11.7 fl (6.2-12.0); Monocyte# 0.82 X10^3/uL; Monocyte% 8.5 % (0-10); NRBC Flagged by Analyzer 0 % (0-5); Neutrophil # 5.55 X10^3/uL (2.7-7.7); Neutrophil % 57.8 % (47-70); Platelet Count 184 K/mm3 (150-450); RBC Distribution Width CV 13.4 % (11.6-14.6); RBC Distribution Width SD 44.2 fl (35.1-43.9); Red Blood Count 4.73 M/mm3 (4.6-6.2); White Blood Count 9.6 K/mm3 (4.4-11.0)
[2021-10-30 08:35] LABS: AST(SGOT) 12 U/L (15-37); Alanine Aminotransfer ALT/SGPT 20 U/L (16-61); Albumin, Serum 3.1 g/dL (3.2-5.0); Alkaline Phosphatase 105 U/L (45-117); Anion Gap 4 (5-15); BUN 17 mg/dL (7-18); BUN/Creat Ratio 19.9 RATIO (10-20); Calcium,Total 8.3 mg/dL (8.5-10.1); Chloride 107 mmol/L (98-107); Creatinine, Serum 0.85 mg/dL (0.70-1.30); EST Glomerular Filtration Rate 98 mL/min (>60); Est Glom Filt Rate - Afr Amer 118 mL/min (>60); Estimated Creatinine Clearance 96.62 ml/min; Globulin 3.2 g/dL (2.2-4.2); Glucose 256 mg/dL (74-106); Potassium 3.3 mmol/L (3.5-5.1); Protein, Total 6.3 g/dL (6.4-8.2); Sodium Level 137 mmol/L (136-145)
[2021-10-30] MEDS: Insulin Glargine-YFGN 100 UNIT/ML Pen 25 UNIT SC ×2 (08:51→22:10)
--- NOTE | 2021-10-30 10:02 | CASEMGMT ---
Addendum entered by Myriam Schafer 10/30/21 10:31: JASMEET made contact with Kimberli Horn again. She confirmed the order of skilled care was for Home Health Care through [facility]. [address], [place] [address] JASMEET called [facility] to confirm the referral and spoke to Cheryl. Cheryl reports she has no information on this pt and they are currently not accepting new pts. Original Note: Social Work Due to lack of contacts in pt file JASMEET called pt PCP office to see if they had any information. JASMEET was given name, Kimberli Horn, with phone number [phone]. JASMEET had knowledge this contact was [employer] supportive employment case manager and contacted her to inform of pt being admitted to the hospital. Kimberli shared that pt has an aide who goes to his house 4x a week and he also receives meals. She reported the aide found him on Thursday to be confused and disoriented. Pt reported blood sugar levels had went from 800 to 300 quickly. Aide called the ambulance and attempted to get pt to go to hospital but he refused. They checked on him again and Kimberli reports she is not aware of all details so the story is unclear, however it appears this was leading into Thursday night when pt was brought to [facility] by derek. Kimberli reports pt's PCP, Nelson Xiong, has already given order for a skilled level of care through [facility] and they were waiting on the details to be sorted out. Kimberli unsure if order was for nursing facility or home health care. Kimberli requested JASMEET fax discharge information to her when pt leaves the hospital and provided a number of [phone]. JASMEET called Dr. Xiong office back to get clarification on the skilled level of care that was ordered. There was no answer. JASMEET left message requesting a call back. ISHMAEL Gannon
--- NOTE | 2021-10-30 10:45 | CASEMGMT ---
Addendum entered by Kaia Mendez 10/30/21 14:47: BOO FRAGOSO in to pt room, pt eyes open but unable to answer questions. BOO FRAGOSO to check back. Addendum entered by Kaia Mendez 10/30/21 10:51: TC to Dr.Anson La's office to verify if pt had listed any emergency contacts, none noted. Original Note: TC to [facility] in [place], spoke with Oneil, states no referral received for pt. TC to the [place] office, spoke with Phyllis, she states a referral was received but it needed to be sent to the [place] office. She states she called PCP office to make them aware. Currently essentially they do not have a referral for pt. BOO FRAGOSO to defer assessment as of now as pt is unable be part of this and no family contacts known currently.
--- NOTE | 2021-10-30 11:05 | PN.HOSP_ITS ---
Documented by User: Kayla Cohn ELECTRIC WHEELCHAIR REPAIRER, ELECTRIC WHEELCHAIR REPAIRER-C 10/30/21 11:21 Subjective Subjective Patient seen and examined. Drowsy this morning. Resting comfortably in bed. Responds briefly verbally when awoken. Objective Data Objective Data Vital Signs: Vital Signs Temp Pulse Resp BP Pulse Ox O2 Del Method 97.9 F 84 18 113/72 92 Room Air 10/30/21 08:50 10/30/21 08:50 10/30/21 08:50 10/30/21 08:50 10/30/21 08:50 10/30/21 08:50 Oxygen Delivery Method Room Air Weight: 246 lb 0.574 oz Body Mass Index (BMI) 35.3 Intake & Output: Intake and Output for Last 24 Hours 10/28/21 10/29/21 10/30/21 23:59 23:59 23:59 Intake Total 595 / 595 Balance 595 / 595 Lab / Micro Data Result Diagrams: 10/30/21 07:36 10/30/21 07:36 Labs: Laboratory Results - last 24 hr 10/30/21 01:05: WBC 12.8 H, RBC 5.41, Hgb 16.0, Hct 48.6, MCV 89.8, MCH 29.6, MCHC 32.9, RDW Std Deviation 44.9 H, RDW Coeff of Halley 13.5, Plt Count 230, MPV 11.7, Immature Gran % (Auto) 0.300, Neut % (Auto) 65.8, Lymph % (Auto) 24.9, [place] % (Auto) 7.6, Eos % (Auto) 0.5, Baso % (Auto) 0.9, Absolute Neuts (auto) 8.5 H, Absolute Lymphs (auto) 3.20, Nucleated RBC % 0 10/30/21 01:05: Sodium 132 L, Potassium 4.2, Chloride 98, Carbon Dioxide 22.0, Anion Gap 12, BUN 22 H, Creatinine 1.31 H, Estim Creat Clear Calc 62.69, Est GFR (MDRD) Af Amer 72, Est GFR (MDRD) Non-Af 59 L, BUN/Creatinine Ratio 16.8, Glucose 458 H*, Calcium 9.5, Total Bilirubin 0.80, AST 15, ALT 27, Alkaline Phosphatase 146 H, Troponin I High Sens 23, Total Protein 8.1, Albumin 4.1, Globulin 4.0, Albumin/Globulin Ratio 1.0 10/30/21 01:05: Ethyl Alcohol < 3.0, Acetone Level NEGATIVE 10/30/21 03:43: POC Glucose 365 H 10/30/21 06:16: POC Glucose 275 H 10/30/21 07:36: WBC 9.6, RBC 4.73, Hgb 14.1, Hct 42.3, MCV 89.4, MCH 29.8, MCHC 33.3, RDW Std Deviation 44.2 H, RDW Coeff of Halley 13.4, Plt Count 184, MPV 11.7, Immature Gran % (Auto) 0.400, Neut % (Auto) 57.8, Lymph % (Auto) 30.9, [place] % (Auto) 8.5, Eos % (Auto) 1.7, Baso % (Auto) 0.7, Absolute Neuts (auto) 5.6, Absolute Lymphs (auto) 2.97, Nucleated RBC % 0 10/30/21 07:36: Sodium 137, Potassium 3.3 L, Chloride 107, Carbon Dioxide 26.0, Anion Gap 4 L, BUN 17, Creatinine 0.85, Estim Creat Clear Calc 96.62, Est GFR (MDRD) Af Amer 118, Est GFR (MDRD) Non-Af 98, BUN/Creatinine Ratio 19.9, Glucose 256 H, Calcium 8.3 L, Total Bilirubin 0.60, AST 12 L, ALT 20, Alkaline Phosphatase 105, Total Protein 6.3 L, Albumin 3.1 L, Globulin 3.2, Albumin/Globulin Ratio 1.0 Radiography Diagnostic Testing: Radiology Impression Brain CT 10/30/21 01:04 IMPRESSION: Mild chronic small vessel white matter disease. No evidence of acute intracranial abnormality. Electronically Signed: Nelson Keene MD at 3:18 EDT , Chest X-Ray 10/30/21 01:04 IMPRESSION: Mild left basilar linear scarring versus atelectasis. Electronically Signed: Nelson Keene MD at 3:15 EDT , Physical Exam Const no apparent distress Constitutional Narrative: Drowsy HEENT normocephalic Mouth: dry mucous membranes Eyes PERRL, EOMs intact bilaterally and conjunctivae normal Neck no lymphadenopathy Resp clear to auscultation bilaterally Auscultation: diminished lung sounds Cardio regular rate, regular rhythm and no murmurs Peripheral Pulses: pulses 2+ throughout GI normal to inspection, nondistended, normoactive bowel sounds, non-tender and non-distended Extremity normal to inspection Skin no rashes or lesions noted Lesions: no lesions Rashes: no rashes Trauma: no lacerations or abrasions Neuro CN's II-XII intact bilaterally, no focal motor deficits, no sensory deficits noted and deep tendon reflexes 2+ bilaterally Psych Psych Narrative: Difficult to assess due to lethargy Assessment & Plan Assessment/Plan (1) Altered mental status: PLAN: Plan 1. Acute metabolic encephalopathy-likely related to hyperglycemia. No evidence of infectious etiology. Tox screen pending. Mental status improving. Brain CT without acute process. 2. Type 2 diabetes mellitus with associated peripheral neuropathy, gastroparesi s-hemoglobin A1c 11.4%. Accu-Cheks with sliding scale insulin. Continue home insulin regimen. Glucose improving. 3. Acute kidney injury-resolved with IV fluids. 4. BPH-continue Flomax. 5. Tobacco dependence-encourage cessation. 6. Chronic pain syndrome with history of opioid abuse-Tox screen pending. Per external pharmacy records, patient has not received opioid prescriptions since June 2021. DVT prophylaxis-Heparin subcu This patient was seen by CHATA KempC under the supervision of Dr. Travis. Time spent examining patient, reviewing data and subsequent management of care: 14 minutes Documented by User: Dr. Lazaro Travis MD 10/30/21 14:36 Subjective Subjective Patient seen and examined. Drowsy this morning. Resting comfortably in bed. Responds briefly verbally when awoken. Seen and examined. Patient was admitted yesterday for altered mental status, agitation, combative behavior. In the morning he is alert, awake and oriented x3. He told me the name of month, day and year, his date of and full name. Denies any focal weakness, numbness tingling. No chest pain or shortness of breath. Objective Data Lab / Micro Data Result Diagrams: 10/30/21 07:36 10/30/21 07:36 Labs: Laboratory Results - last 24 hr 10/30/21 01:05: WBC 12.8 H, RBC 5.41, Hgb 16.0, Hct 48.6, MCV 89.8, MCH 29.6, MC HC 32.9, RDW Std Deviation 44.9 H, RDW Coeff of Halley 13.5, Plt Count 230, MPV 11.7, Immature Gran % (Auto) 0.300, Neut % (Auto) 65.8, Lymph % (Auto) 24.9, [place] % (Auto) 7.6, Eos % (Auto) 0.5, Baso % (Auto) 0.9, Absolute Neuts (auto) 8.5 H, Absolute Lymphs (auto) 3.20, Nucleated RBC % 0 10/30/21 01:05: Sodium 132 L, Potassium 4.2, Chloride 98, Carbon Dioxide 22.0, Anion Gap 12, BUN 22 H, Creatinine 1.31 H, Estim Creat Clear Calc 62.69, Est GFR (MDRD) Af Amer 72, Est GFR (MDRD) Non-Af 59 L, BUN/Creatinine Ratio 16.8, Glucose 458 H*, Calcium 9.5, Total Bilirubin 0.80, AST 15, ALT 27, Alkaline Phosphatase 146 H, Troponin I High Sens 23, Total Protein 8.1, Albumin 4.1, Globulin 4.0, Albumin/Globulin Ratio 1.0 10/30/21 01:05: Ethyl Alcohol < 3.0, Acetone Level NEGATIVE 10/30/21 03:43: POC Glucose 365 H 10/30/21 06:16: POC Glucose 275 H 10/30/21 07:36: WBC 9.6, RBC 4.73, Hgb 14.1, Hct 42.3, MCV 89.4, MCH 29.8, MCHC 33.3, RDW Std Deviation 44.2 H, RDW Coeff of Halley 13.4, Plt Count 184, MPV 11.7, Immature Gran % (Auto) 0.400, Neut % (Auto) 57.8, Lymph % (Auto) 30.9, [place] % (Auto) 8.5, Eos % (Auto) 1.7, Baso % (Auto) 0.7, Absolute Neuts (auto) 5.6, Absolute Lymphs (auto) 2.97, Nucleated RBC % 0 10/30/21 07:36: Sodium 137, Potassium 3.3 L, Chloride 107, Carbon Dioxide 26.0, Anion Gap 4 L, BUN 17, Creatinine 0.85, Estim Creat Clear Calc 96.62, Est GFR (MDRD) Af Amer 118, Est GFR (MDRD) Non-Af 98, BUN/Creatinine Ratio 19.9, Glucose 256 H, Calcium 8.3 L, Total Bilirubin 0.60, AST 12 L, ALT 20, Alkaline Phosphatase 105, Total Protein 6.3 L, Albumin 3.1 L, Globulin 3.2, Albumin/Globulin Ratio 1.0 Physical Exam Narrative Physical exam General: Lethargy, mild drowsy, oriented x3. HEENT: Atraumatic, PERRLA, EOMI, Normocephalic Oral: No Gingival or Mucosal Lesions/ Ulcerations Neck: Supple, No JVD, Negative Carotid Bruits Lungs: Air entry diminished in bilateral lung bases. No crepitation/rhonchi Cardiovascular: Regular rate, Regular Rhythm, Normal S1, Normal S2, No murmurs Abdomen: Bowel Sounds Present, Soft, Non Tender, Non-Distended : No renal angle tenderness. No suprapubic tenderness. Extremities: No edema, Capillary Refill Less than 3 Seconds Skin: No rashes, No breakdown Musculoskeletal: No Tenderness to Palpation of Joints or Extremities Neurological: DTR 2+/4, detailed neuro exam unobtainable as patient did not cooperate. Psych/Mental Status: Normal Affect, Appropriate. Assessment & Plan Assessment/Plan (1) Altered mental status: PLAN: Plan 1. Acute metabolic encephalopathy-likely related to hyperglycemia. No evidence of infectious etiology. Tox screen pending. Mental status improving. Brain CT without acute process. 2. Type 2 diabetes mellitus with associated peripheral neuropathy, gastropares is-hemoglobin A1c 11.4%. Accu-Cheks with sliding scale insulin. Continue home insulin regimen. Glucose improving. 3. Acute kidney injury-resolved with IV fluids. 4. BPH-continue Flomax. 5. Tobacco dependence-encourage cessation. 6. Chronic pain syndrome with history of opioid abuse-Tox screen pending. Per external pharmacy records, patient has not received opioid prescriptions since June 2021. DVT prophylaxis-Heparin subcu This patient was seen by CHATA KempC under the supervision of Dr. Travis. Time spent examining patient, reviewing data and subsequent management of care: 15 minutes This patient was seen in conjunction with ELECTRIC WHEELCHAIR REPAIRERKayla. I have independently interviewed and examined the patient and reviewed pertinent history, examination findings, laboratory and plan of management. I have reviewed the note and agree with the documented findings with the few additional points. In brief, patient is 61-year-old gentleman admitted for confusion, disorientatio n, combative behavior for 3 days prior to admission suggestive of acute encephalopathy probably metabolic from hyperglycemia. 1. Acute encephalopathy most probably due to metabolic encephalopathy: Patient was given Geodon and Ativan. Patient mildly lethargic. 2. Type 2 diabetes mellitus, uncontrolled with hyperglycemia complicated by peripheral neuropathy, gastroparesis probable retinopathy: Patient last A1c 11.4. Patient was admitted a month ago for hyperglycemia and SHANTAL. This time, patient does not have high anion gap metabolic acidosis but glucose was found more than 500 and Accu-Chek and 458 in BMP. Patient home insulin regimen with up titration as per Accu-Cheks. 3. Acute kidney injury resolved with IV fluid. 4. Other comorbidities admission BPH, chronic smoker nicotine dependence, chronic pain disorder chronic disability with with history of opioid dependence and possible learning disability. U tox is negative. UA shows glucosuria and ketonuria but microanalysis normal. I have discussed my assessment with Kayla RODRIGUEZ and orders have been reviewed. Total time of the visit including total time spent in counseling or coordination of care, (more than 50% of the total time, spent in obtaining medical information from nurses and other ancillary care providers,explaining to the patient about labs, imaging, diagnosis and management) , review of labs and imaging is 35 minutes. I spent 20 minutes and Kayla RODRIGUEZ spent 15 minutes Laboratory Results 10/30/21 01:05: WBC 12.8 H, RBC 5.41, Hgb 16.0, Hct 48.6, MCV 89.8, MCH 29.6, MCHC 32.9, RDW Std Deviation 44.9 H, RDW Coeff of Halley 13.5, Plt Count 230, MPV 11.7, Immature Gran % (Auto) 0.300, Neut % (Auto) 65.8, Lymph % (Auto) 24.9, [place] % (Auto) 7.6, Eos % (Auto) 0.5, Baso % (Auto) 0.9, Absolute Neuts (auto) 8.5 H, Absolute Lymphs (auto) 3.20, Nucleated RBC % 0 10/30/21 01:05: Sodium 132 L, Potassium 4.2, Chloride 98, Carbon Dioxide 22.0, Anion Gap 12, BUN 22 H, Creatinine 1.31 H, Estim Creat Clear Calc 62.69, Est GFR (MDRD) Af Amer 72, Est GFR (MDRD) Non-Af 59 L, BUN/Creatinine Ratio 16.8, Glucose 458 H*, Calcium 9.5, Total Bilirubin 0.80, AST 15, ALT 27, Alkaline Phosphatase 146 H, Troponin I High Sens 23, Total Protein 8.1, Albumin 4.1, Globulin 4.0, Albumin/Globulin Ratio 1.0 10/30/21 01:05: Ethyl Alcohol < 3.0, Acetone Level NEGATIVE 10/30/21 03:43: POC Glucose 365 H 10/30/21 06:16: POC Glucose 275 H 10/30/21 07:36: WBC 9.6, RBC 4.73, Hgb 14.1, Hct 42.3, MCV 89.4, MCH 29.8, MCHC 33.3, RDW Std Deviation 44.2 H, RDW Coeff of Halley 13.4, Plt Count 184, MPV 11.7, Immature Gran % (Auto) 0.400, Neut % (Auto) 57.8, Lymph % (Auto) 30.9, [place] % (Auto) 8.5, Eos % (Auto) 1.7, Baso % (Auto) 0.7, Absolute Neuts (auto) 5.6, Absolute Lymphs (auto) 2.97, Nucleated RBC % 0 10/30/21 07:36: Sodium 137, Potassium 3.3 L, Chloride 107, Carbon Dioxide 26.0, Anion Gap 4 L, BUN 17, Creatinine 0.85, Estim Creat Clear Calc 96.62, Est GFR (MDRD) Af Amer 118, Est GFR (MDRD) Non-Af 98, BUN/Creatinine Ratio 19.9, Glucose 256 H, Calcium 8.3 L, Total Bilirubin 0.60, AST 12 L, ALT 20, Alkaline Phosphatase 105, Total Protein 6.3 L, Albumin 3.1 L, Globulin 3.2, Albumin/Globulin Ratio 1.0 10/30/21 10:54: POC Glucose 263 H 10/30/21 13:15: Urine Color Yellow, Urine Clarity Clear, Urine pH 6.0, Ur Specific [place] 1.020, Urine Protein Negative, Urine Glucose (UA) 1000 H, Urine Ketones 50 H, Urine Occult Blood Negative, Urine Nitrite Negative, Urine Bilirubin Negative, Urine Urobilinogen Normal, Ur Leukocyte Esterase Negative, Urine RBC 0 SEEN, Urine WBC 0 SEEN, Ur Squamous Epith Cells 0-5 SEEN, Urine Bacteria 0 SEEN, Urine Mucus 0 SEEN 10/30/21 13:15: Urine Opiates Screen NEGATIVE, Urine Methadone Screen NEGATIVE, Ur Barbiturates Screen NEGATIVE, Ur Phencyclidine Scrn NEGATIVE, Ur Amphetamines Screen NEGATIVE, MDMA (Ecstasy) Screen NEGATIVE, U Benzodiazepines Scrn NEGATIVE, Urine Cocaine Screen NEGATIVE, U Cannabinoids Screen NEGATIVE, Ur Drug Screen Comment Charges/Coding Visit Charges Inpatient E&M: 87032 Subs Hosp L2
[2021-10-30 11:15] LABS: Bedside Glucose 263 mg/dL (74-106)
[2021-10-30] MEDS: Tamsulosin HCl 0.4 MG Capsule PO ×2 (11:49→22:08)
[2021-10-30] MEDS: Potassium Chloride Oral Tablet 20 MEQ 40 MEQ PO (11:50)
[2021-10-30 13:24] LABS: Bacteria 0 SEEN /hpf (None Seen); Mucous, Urine 0 SEEN /hpf (<or=2+); Red Blood Cells-Urine 0 SEEN /hpf (0-5); White Blood Cells 0 SEEN /hpf (0-5)
[2021-10-30 13:27] LABS: Color, Urine Yellow (Yellow); Glucose, Dipstick 1000 mg/dl (Normal); Ketone-Dipstick 50 mg/dl (Negative); Leukocyte Esterase-Dipstick Negative /ul (Negative); Nitrite-Dipstick Negative (Negative); Occult Blood-Urine Negative /ul (Negative); Protein-Dipstick Negative (Negative); Urine Bilirubin Dipstick Negative (Negative); Urine Clarity Clear (Clear); Urine Urobilinogen Normal (Normal)
[2021-10-30 13:33] LABS: Squamous Epithelial Cells - UA 0-5 SEEN /hpf (0-5)
[2021-10-30 13:36] LABS: Amphetamine Urine VISTA NEGATIVE (<1000 ng/mL); Barbiturate Urine VISTA NEGATIVE (< 200 ng/mL); Benzodiazepine Urine VISTA NEGATIVE (< 200 ng/mL); Cocaine Urine VISTA NEGATIVE (< 300 ng/mL); Ecstacy Urine VISTA NEGATIVE (< 500 ng/mL); Methadone Urine VISTA NEGATIVE (< 300 ng/mL); PCP Urine VISTA NEGATIVE (< 25 ng/mL); THC Urine VISTA NEGATIVE (< 50 ng/mL); Vista UDS pH Range 6
[2021-10-30 16:41] LABS: Bedside Glucose 222 mg/dL (74-106)
[2021-10-30] MEDS: Senna/Docusate Sodium 1 Tablet 2 TABLET PO (18:55)
[2021-10-30 22:41] LABS: Bedside Glucose 314 mg/dL (74-106)
[2021-10-31] MEDS: 0.9% Normal Saline 1,000 ML 100 ML IV (03:54)
[2021-10-31 03:57] VITALS: BP 134/71; PULSE 92; RESP 16; TEMP 36.6; O2SAT 96
[2021-10-31 06:32] LABS: Absolute Lymphocyte Count 2.04 X10^3/uL (0.83-4.51); Absolute Neutrophil Count 4.8 X10^3/uL (2.0-7.7); Basophil# 0.09 X10^3/uL; Basophil% 1.2 % (0-1); Eosinophils% 1.3 % (0-5); Hematocrit 42.1 % (40-54); Hemoglobin 14.3 g/dL (13.0-16.5); Lymphocyte # 2.04 X10^3/ul (0.83-4.51); Lymphocyte % 26.6 % (19-41); Mean Corpuscular Hgb 29.9 pg (27.0-32.0); Mean Corpuscular Volume 88.1 fL (80-94); Mean Platelet Vol. 11.7 fl (6.2-12.0); Monocyte# 0.59 X10^3/uL; Monocyte% 7.7 % (0-10); NRBC Flagged by Analyzer 0 % (0-5); Neutrophil % 62.7 % (47-70); Platelet Count 180 K/mm3 (150-450); RBC Distribution Width CV 13.2 % (11.6-14.6); RBC Distribution Width SD 43.2 fl (35.1-43.9); Red Blood Count 4.78 M/mm3 (4.6-6.2); White Blood Count 7.7 K/mm3 (4.4-11.0)
[2021-10-31] MEDS: Heparin Injection (Vial) 5,000 UNIT/ML VIAL 5000 UNIT SC (06:44)
[2021-10-31 07:02] LABS: ALB/GLOB Ratio 0.8 RATIO (0.9-2.4); AST(SGOT) 16 U/L (15-37); Alanine Aminotransfer ALT/SGPT 27 U/L (16-61); Albumin, Serum 2.9 g/dL (3.2-5.0); Alkaline Phosphatase 114 U/L (45-117); Anion Gap 5 (5-15); BUN 11 mg/dL (7-18); BUN/Creat Ratio 11.1 RATIO (10-20); Calcium,Total 8.3 mg/dL (8.5-10.1); Chloride 103 mmol/L (98-107); Creatinine, Serum 0.99 mg/dL (0.70-1.30); EST Glomerular Filtration Rate 82 mL/min (>60); Est Glom Filt Rate - Afr Amer 100 mL/min (>60); Estimated Creatinine Clearance 82.95 ml/min; Globulin 3.5 g/dL (2.2-4.2); Glucose 484 mg/dL (74-106); Potassium 4.2 mmol/L (3.5-5.1); Protein, Total 6.4 g/dL (6.4-8.2); Sodium Level 133 mmol/L (136-145)
[2021-10-31] MEDS: Insulin Lispro 100 UNIT/ML INSULN.PEN SC ×2 (07:04→10:57)
[2021-10-31] MEDS: Insulin Glargine-YFGN 100 UNIT/ML Pen 25 UNIT SC (09:02)
[2021-10-31] MEDS: Tamsulosin HCl 0.4 MG Capsule PO (09:02)
[2021-10-31 09:05] VITALS: BP 128/83; PULSE 90; RESP 16; TEMP 36.8; O2SAT 94
--- NOTE | 2021-10-31 09:37 | CASEMGMT ---
Addendum entered by Kaia Mendez 10/31/21 13:49: Received confirmation from Mac at [facility] that they are able to accept pt for tomorrow SOC. Faxed dc information at this time. Addendum entered by Kaia Mendez 10/31/21 10:00: TC to Mac at [facility] in [place], referral made and faxed at this time. Original Note: BOO FRAGOSO Assessment: Face to Face with pt for initial transition planning/care coordination assessment. BOO FRAGOSO introduced self and role at [facility], pt voices understanding and consents to assessment. Pt is A/O x3 and answers all questions. Care providers, pharmacy, and demographics verified/updated. Admitting Dx: acute encephalopathy PCP:Tyrese Specialists:miguel La Pharmacy: [facility] Insurance: Lillian BE [facility] Prescription Benefit: yes LW/HPOA: Pt denies having a LW/DPOA and denies need for info regarding AD. LNOK: Pt states he does not wish to have any contacts listed. He states he has children but they are younger than me and I take care of myself. Living Arrangements: Pt lives alone in an apt on the second level with steps or an elevator to enter. Pt states he uses the steps. Pt reports he is I in ADL' s and denies concerns at home. Transportation: Pt drives self and denies concerns with transportation. DME/HHC/SNF: Pt states he has a BGM at home. States he has supplies for this as well as insulin and needles. Pt states he checks his blood sugars daily. Pt states he has had HHC in the past but is unsure of the name of the agency. Discussed with him that his PCP has began setting him up with [facility] for SN in the home. Asked pt if he would be agreeable to this. Pt states again, I care for myself but if you think I need it. Discussed with patient that yesterday he could not care for himself. That he could not answer questions, he did not know where he was or his birthdate. Pt states that is wild. Discussed with him the importance of having an emergency contact in case this should happen again. Pt kept stating I take care of myself. He did agree to the HHC. Pt denies SNF stays. Pt states no concerns with going home at time of dc. Discussed importance of keeping blood sugars under control and monitoring. He is aware that the [facility] SN will assist with this and provide education. He denies need for therapy. Pt states no further concerns/needs. CM to follow. Advised pt to ask CM if any further question/concerns/needs arise, voices understanding. Pt Goal: Home Plan: Home with [facility] SN.
[2021-10-31] MEDS: Insulin Glargine-YFGN 100 UNIT/ML Pen 10 UNIT SC (10:55)
[2021-10-31] MEDS: Insulin Lispro 100 UNIT/ML INSULN.PEN 15 UNIT SC ×2 (10:57→12:59)
--- NOTE | 2021-10-31 11:00 | DCINST_ITS ---
Discharge Instructions Diet Discharge Diet: 1800 Calorie Control Diet Activity Discharge Activity: May Not Drive Weight Bearing Status: Weight bearing as tolerated Dressing / Incision Call your doctor if you observe: Fever of 101 or Higher, Coldness, Increased Pain, Numbness or Tingling, Change in Color, Inability to urinate, Inability to have a bowel movement, Shortness of breath, Dizziness, Fainting spells, Swelling in the ankles, Chest pain, Prolonged hiccupping, Increased palpitations (irregular heartbeat), Calf discomfort and Uncontrolled pain Follow Up Care Test Results: Test results from this visit will be discussed in further detail at your follow- up appointment, if applicable. Discharge Plan Admission Admit Date/Time: 10/30/21 03:37 Primary Reason for Your Visit: Hyperglycemia, acute altered mental status Attending Provider: Lazaro Travis Primary Care Provider: Nelson Xiong Consulting Providers: Kim Hummel Instructions Additional Instructions / Restrictions: Follow-up with psychiatrist in about 2 weeks, referral from PCP Discharge Orders/Prescriptions Prescriptions: New insulin lispro [Humalog KwikPen Insulin] 100 unit/mL Insulin Pen 20 unit subcut TIDCM Qty: 15 0RF sennosides-docusate sodium [Stool Softener-Stimulant Laxat] 8.6-50 mg Tablet 2 tab PO BID PRN PRN (Reason: Constipation) Qty: 0 0RF Continued tamsulosin 0.4 MG capsule 0.8 mg PO DAILY Rx Instructions: pt gives multiple answers for same questions metformin 500 mg tablet 1 tab PO BID Label Comments: take 1 tablet by mouth twice a day amitriptyline 100 mg tablet 1 tab PO QHS PRN (Reason: Sleep) Label Comments: take 1 tablet by mouth at bedtime Changed insulin glargine-yfgn 100 unit/mL (3 mL) Insulin Pen 35 unit subcut BID Qty: 3 2RF Held meloxicam 7.5 mg tablet 1 tab PO BID PRN (Reason: foot pain) Hold Instructions: Hold for 3 days Label Comments: take 1 tablet by mouth twice a day NEEDED FOR PAIN Referrals / Follow Up: Nelson Xiong DO [Primary Care Provider] - Within 1 Week Disposition Disposition (needs filled in before D/C Order can be placed): Home Health Service
[2021-10-31 11:36] LABS: Bedside Glucose 380 mg/dL (74-106)
--- NOTE | 2021-10-31 12:46 | CASEMGMT ---
Social Work SW met with pt to discuss emergency contact/HCPOA. SW explained to pt reasoning and need for emergency contact. Pt states he makes his own decisions and does not want anyone else making decisions. SW explained that this would only be in the event that he could not make decisions for himself. Pt states he will never be in a situation in which he cannot make his own decisions. SW explained pt confusion yesterday and pt did not believe SW. SW asked pt if he was seriously ill who would he want hospital to contact, and pt states no one. SW inquired if pt had children or siblings or a friend. Pt states his brothers are , children are minors and he has a strained relationship with them and don't you see all my friends in this room with me (Pt making a point that no one cared enough to be visiting him at hospital). SW informed pt that if he ever had a situation where he was not competent to make his own decisions a court would declare him incompetent and chose a guardian. Pt continues to deny to list any supply person or make HCPOA. SW inquired about how pt would get home. Pt states someone brought me here, they can take me home. SW explained that he was brought in by squad and squad would not take pt home. Pt again states someone can take him home. SW will check with hospital van for transport home. Pt does have a manager case through the [employer], Kimberli Horn. Kimberli updated on pt discharging home today. ISHMAEL Romo
[2021-10-31 12:55] LABS: Bedside Glucose 386 mg/dL (74-106)
--- NOTE | 2021-10-31 13:02 | CASEMGMT ---
TC to Micheline at [facility], they are able to transport pt home at 1:30. Requests patient to be at main entrance at that time. Pt nurse aware.
[2021-10-31 13:21] LABS: Bedside Glucose 289 mg/dL (74-106)
[2021-10-31 13:25] VITALS: BP 132/82; PULSE 94; RESP 18; TEMP 36.3; O2SAT 97
--- NOTE | 2021-10-31 13:30 | PCM.DC.SUM ---
Documented by User: AFRICA Wesley 10/31/21 13:39 Providers Date of Admission: 10/30/21 Date of Discharge: 10/31/21 Primary Care Physician: Dr. Nelson Xiong DO Reason For Visit: ACUTE ENCEPHALOPATHY Diagnosis Discharge Diagnosis (1) Altered mental status: Status: Acute Code(s): R41.82 - Altered mental status, unspecified Medications at Discharge Home Medications tamsulosin 0.4 mg capsule 0.8 mg PO DAILY prostate 10/04/15 amitriptyline 100 mg tablet 1 tab PO QHS PRN Sleep 10/30/21 meloxicam 7.5 mg tablet 1 tab PO BID PRN foot pain 10/30/21 metformin 500 mg tablet 1 tab PO BID diabetes 10/30/21 insulin glargine-yfgn 100 unit/mL (3 mL) subcutaneous pen 35 unit (0.35 mL) subcut BID #3 mL 10/31/21 insulin lispro 100 unit/mL subcutaneous pen (Humalog KwikPen (U-100) Insulin) 20 unit (0.2 mL) subcut TIDCM #15 mL 10/31/21 sennosides 8.6 mg-docusate sodium 50 mg tablet (Stool Softener-Stimulant Laxative) 2 tab PO BID PRN PRN Constipation #0 tabs 10/31/21 Hospital Course Operations None Procedures None Summary of Care Provided Minutes Spent on Discharge: 35 Hospital Course: Patient is a 61-year-old male who was brought to the ER following a wellness check. Patient was confused and blood sugar was noted to be 481. Patient was observed to be agitated and was given Haldol IM by EMS prior to transportation to ER. Patient was severely agitated upon arrival to ER was given Geodon as well as Ativan and put in four-point restraints. Brain CT demonstrated mild chronic small vessel white matter disease but no acute intracranial abnormality. Patient's blood sugars were treated accordingly and patient became more alert and oriented with management of blood sugars. Patient alert and oriented x3 this morning. Patient also given fluids overnight for SHANTAL which has resolved. Physical Exam Const alert, oriented x3 and no apparent distress Constitutional Narrative: Patient determined that he is leaving today. HEENT normocephalic and head/scalp atraumatic Eyes conjunctivae normal and no scleral icterus Neck no lymphadenopathy and supple General: trachea midline Resp normal respiratory effort, normal air movement and clear to auscultation bilaterally Cardio regular rate, regular rhythm, S1 normal heart sound, S2 normal heart sound and peripheral pulses 2+ throughout GI normal to inspection, nondistended, normoactive bowel sounds, soft to palpation and non-tender Extremity normal capillary refill and no clubbing, cyanosis or edema Skin skin turgor normal Neuro no focal motor deficits and no sensory deficits noted Speech: speech normal Psych Mood & Affect: flat affect Weight / BMI Weight Weight: 245 lb 9.519 oz Body Mass Index (BMI) 35.3 ABG / Lab / Microbiology Data Result Diagrams: 10/31/21 05:40 10/31/21 05:40 Laboratory: Laboratory Results - last 24 hr 10/30/21 13:15: Urine RBC 0 SEEN, Urine WBC 0 SEEN, Ur Squamous Epith Cells 0-5 SEEN, Urine Bacteria 0 SEEN, Urine Mucus 0 SEEN 10/30/21 13:15: Urine Opiates Screen NEGATIVE, Urine Methadone Screen NEGATIVE, Ur Barbiturates Screen NEGATIVE, Ur Phencyclidine Scrn NEGATIVE, Ur Amphetamines Screen NEGATIVE, MDMA (Ecstasy) Screen NEGATIVE, U Benzodiazepines Scrn NEGATIVE, Urine Cocaine Screen NEGATIVE, U Cannabinoids Screen NEGATIVE 10/30/21 15:43: POC Glucose 222 H 10/30/21 21:57: POC Glucose 314 H 10/31/21 05:40: WBC 7.7, RBC 4.78, Hgb 14.3, Hct 42.1, MCV 88.1, MCH 29.9, MCHC 34.0, RDW Std Deviation 43.2, RDW Coeff of Halley 13.2, Plt Count 180, MPV 11.7, Immature Gran % (Auto) 0.500, Neut % (Auto) 62.7, Lymph % (Auto) 26.6, [place] % (Auto) 7.7, Eos % (Auto) 1.3, Baso % (Auto) 1.2 H, Absolute Neuts (auto) 4.8, Absolute Lymphs (auto) 2.04, Nucleated RBC % 0 10/31/21 05:40: Sodium 133 L, Potassium 4.2, Chloride 103, Carbon Dioxide 25.0, Anion Gap 5, BUN 11, Creatinine 0.99, Estim Creat Clear Calc 82.95, Est GFR (MDRD) Af Amer 100, Est GFR (MDRD) Non-Af 82, BUN/Creatinine Ratio 11.1, Glucose 484 H*, Calcium 8.3 L, Total Bilirubin 0.40, AST 16, ALT 27, Alkaline Phosphatase 114, Total Protein 6.4, Albumin 2.9 L, Globulin 3.5, Albumin/Globulin Ratio 0.8 L 10/31/21 10:56: POC Glucose 380 H 10/31/21 12:10: POC Glucose 386 H 10/31/21 13:01: POC Glucose 289 H D/C Instructions Discharge Diet: 1800 Calorie Control Diet Weight Bearing Status: Weight bearing as tolerated Call your doctor if you observe: Fever of 101 or Higher, Coldness, Increased Pain, Numbness or Tingling, Change in Color, Inability to urinate, Inability to have a bowel movement, Shortness of breath, Dizziness, Fainting spells, Swelling in the ankles, Chest pain, Prolonged hiccupping, Increased palpitations (irregular heartbeat), Calf discomfort and Uncontrolled pain Meaningful Use Info Meaningful Use Diagnoses (Choose all that apply): None applicable Discharge Plan Admission Admit Date/Time: 10/30/21 03:37 Primary Reason for Your Visit: Hyperglycemia, acute altered mental status Attending Provider: Lazaro Travis Primary Care Provider: Nelson Xiong Consulting Providers: Kim Hummel Instructions Additional Instructions / Restrictions: Follow-up with psychiatrist in about 2 weeks, referral from PCP Discharge Orders/Prescriptions Prescriptions: New insulin lispro [Humalog KwikPen Insulin] 100 unit/mL Insulin Pen 20 unit subcut TIDCM Qty: 15 0RF sennosides-docusate sodium [Stool Softener-Stimulant Laxat] 8.6-50 mg Tablet 2 tab PO BID PRN PRN (Reason: Constipation) Qty: 0 0RF Continued tamsulosin 0.4 MG capsule 0.8 mg PO DAILY Rx Instructions: pt gives multiple answers for same questions metformin 500 mg tablet 1 tab PO BID Label Comments: take 1 tablet by mouth twice a day amitriptyline 100 mg tablet 1 tab PO QHS PRN (Reason: Sleep) Label Comments: take 1 tablet by mouth at bedtime Changed insulin glargine-yfgn 100 unit/mL (3 mL) Insulin Pen 35 unit subcut BID Qty: 3 2RF Held meloxicam 7.5 mg tablet 1 tab PO BID PRN (Reason: foot pain) Hold Instructions: Hold for 3 days Label Comments: take 1 tablet by mouth twice a day NEEDED FOR PAIN Referrals / Follow Up: Nelsno Xiong DO [Primary Care Provider] - Within 1 Week Disposition Disposition (needs filled in before D/C Order can be placed): Home Health Service Documented by User: Dr. Lazaro Travis MD 10/31/21 16:03 Providers Date of Admission: 10/30/21 Reason For Visit: ACUTE ENCEPHALOPATHY Diagnosis Discharge Diagnosis (1) Altered mental status: Status: Acute Code(s): R41.82 - Altered mental status, unspecified Medications at Discharge Home Medications tamsulosin 0.4 mg capsule 0.8 mg PO DAILY prostate 10/04/15 amitriptyline 100 mg tablet 1 tab PO QHS PRN Sleep 10/30/21 meloxicam 7.5 mg tablet 1 tab PO BID PRN foot pain 10/30/21 metformin 500 mg tablet 1 tab PO BID diabetes 10/30/21 insulin glargine-yfgn 100 unit/mL (3 mL) subcutaneous pen 35 unit (0.35 mL) subcut BID #3 mL 10/31/21 insulin lispro 100 unit/mL subcutaneous pen (Humalog KwikPen (U-100) Insulin) 20 unit (0.2 mL) subcut TIDCM #15 mL 10/31/21 sennosides 8.6 mg-docusate sodium 50 mg tablet (Stool Softener-Stimulant Laxative) 2 tab PO BID PRN PRN Constipation #0 tabs 10/31/21 Hospital Course Summary of Care Provided Hospital Course: Patient is a 61-year-old male who was brought to the ER following a wellness check. Patient was confused and blood sugar was noted to be 481. Patient was observed to be agitated and was given Haldol IM by EMS prior to transportation to ER. Patient was severely agitated upon arrival to ER was given Geodon as well as Ativan and put in four-point restraints. Brain CT demonstrated mild chronic small vessel white matter disease but no acute intracranial abnormality. Patient's blood sugars were treated accordingly and patient became more alert and oriented with management of blood sugars. Patient alert and oriented x3 this morning. Patient also given fluids overnight for SHANTAL which has resolved. This patient was seen in conjunction with MICHAEL Hdz. I have independently interviewed and examined the patient and reviewed pertinent history, examination findings, laboratory and plan of management. I have reviewed the note and agree with the documented findings with the few additional points. n brief, patient is 61-year-old gentleman admitted for confusion, disorientation, combative behavior for 3 days prior to admission suggestive of acute encephalopathy probably metabolic from hyperglycemia. 1.? Acute encephalopathy most probably due to metabolic encephalopathy: Patient was given Geodon and Ativan.? Patient was initially lethargic probably due to effect of antipsychotic medications. Later on patient woke up, alert, talking and interactive. Acute encephalopathy resolved. 2.? Type 2 diabetes mellitus, uncontrolled with hyperglycemia complicated by peripheral neuropathy, gastroparesis probable retinopathy: Patient last A1c 11.4.? Patient was admitted a month ago for hyperglycemia and SHANTAL. This time, patient does not have high anion gap metabolic acidosis but glucose was found more than 500 and Accu-Chek and 458 in BMP.? Patient home insulin regimen with up titration as per Accu-Cheks. Patient blood sugar was high. Humalog insulin dose increased to 20 mg 3 times daily with meals and insulin glargine dose increased 35 Supernus twice daily. Follow-up PCP in 1 week 3.? Acute kidney injury resolved with IV fluid. 4.? Other comorbidities admission BPH, chronic smoker nicotine dependence, chronic pain disorder chronic disability with with history of opioid dependence and possible learning disability.? U tox is negative.? UA shows glucosuria and ketonuria but microanalysis normal. Discharge medication reconciliation done. Discharge follow-up instructions completed. Discharge process discussed with the patient and all questions were answered to patient's satisfaction. Total time spent, exact 35 minutes on discharge meds reconciliation, examination, coordination of care with nurses and ancillary staff, review of imaging and blood test and discussion with the patient on follow-up instructions. I have discussed my assessment with MICHAEL Hdz and orders have been reviewed. Physical Exam Narrative Seen and examined on the day of discharge. Patient is awake alert, responding to simple questions. Patient is interactive with good eye contact. Patient ate his breakfast. He is still disoriented to time. Patient blood sugar is high in the 400s, Lantus and Humalog insulin dose increased and blood sugar controlled. Physical exam General: Alert, oriented x2. Interactive. Speech normal HEENT: Atraumatic, PERRLA, EOMI, Normocephalic Oral: No Gingival or Mucosal Lesions/ Ulcerations Neck: Supple, No JVD, Negative Carotid Bruits Lungs:? Air entry diminished in bilateral lung bases.? No crepitation/rhonchi Cardiovascular: Regular rate, Regular Rhythm, Normal S1, Normal S2, No murmurs Abdomen: Bowel Sounds Present, Soft, Non Tender, Non-Distended : No renal angle tenderness.? No suprapubic tenderness. Extremities: No edema, Capillary Refill Less than 3 Seconds Skin: No rashes, No breakdown Musculoskeletal: No Tenderness to Palpation of Joints or Extremities Neurological:? DTR? 2+/4, detailed neuro exam unobtainable as patient did not cooperate. Psych/Mental Status: Normal Affect, Appropriate. ABG / Lab / Microbiology Data Result Diagrams: 10/31/21 05:40 10/31/21 05:40 Discharge Plan Admission Admit Date/Time: 10/30/21 03:37 Primary Reason for Your Visit: Hyperglycemia, acute altered mental status Attending Provider: Lazaro Travis Primary Care Provider: Nelson Xiong Consulting Providers: Kim Hummel Instructions Additional Instructions / Restrictions: Follow-up with psychiatrist in about 2 weeks, referral from PCP Discharge Orders/Prescriptions Prescriptions: New insulin lispro [Humalog KwikPen Insulin] 100 unit/mL Insulin Pen 20 unit subcut TIDCM Qty: 15 0RF sennosides-docusate sodium [Stool Softener-Stimulant Laxat] 8.6-50 mg Tablet 2 tab PO BID PRN PRN (Reason: Constipation) Qty: 0 0RF Continued tamsulosin 0.4 MG capsule 0.8 mg PO DAILY Rx Instructions: pt gives multiple answers for same questions metformin 500 mg tablet 1 tab PO BID Label Comments: take 1 tablet by mouth twice a day amitriptyline 100 mg tablet 1 tab PO QHS PRN (Reason: Sleep) Label Comments: take 1 tablet by mouth at bedtime Changed insulin glargine-yfgn 100 unit/mL (3 mL) Insulin Pen 35 unit subcut BID Qty: 3 2RF Held meloxicam 7.5 mg tablet 1 tab PO BID PRN (Reason: foot pain) Hold Instructions: Hold for 3 days Label Comments: take 1 tablet by mouth twice a day NEEDED FOR PAIN Referrals / Follow Up: Nelson Xiong DO [Primary Care Provider] - Within 1 Week Disposition Disposition (needs filled in before D/C Order can be placed): Home Health Service Charges/Coding Visit Charges Inpatient E&M: 71625 Disch Hosp
--- NOTE | 2021-10-31 14:46 | CASEMGMT ---
Social Work SW called Kimberli Horn, [facility] to update pt is discharging. No answer, left message. Faxed Discharge PW. ISHMAEL Gannon
[2021-10-31 16:15] LABS: Bedside Glucose 489 mg/dL (74-106)
[2021-10-31 16:15] LABS: Bedside Glucose 485 mg/dL (74-106)
--- NOTE | 2021-11-01 16:46 | CASEMGMT ---
Received PA form stating that glargine is not on formulary. Spoke with hospitalist who called in new medication for pt and this was approved. TC to pt phone, left message asking pt to filler picker medication at [facility] for insulin and requesting call back to RN FOUZIA, phone number left.
--- NOTE | 2021-11-03 17:50 | NURSING ---
Pt phone was left on the charging station without an identifier to who it belonged to. This insurance investigator was able to find name identification on phone and was able to contact a daughter Andria Kim, who said she has nothing to do with him and said she would not pick it up and return it to him. This insurance investigator called Jim who had called pt cellphone 6x earlier today. Jim stated that he had called multiple times because he was trying to locate pts phone d/t it being lost. Jim stated that he could come hot die picker phone tomorrow on the unit when he gets off work.
== END 2021-10-31 13:39 | disposition home health service (06) | DRG 637 ==
LOC: ED 03:31 → MS3 07:30
PROVIDERS: Admitting Provider Internal Medicine; Emergency Provider Emergency Medicine; PCP Family Medicine; Visit Provider Internal Medicine
DX: E11.65 Type 2 diabetes mellitus with hyperglycemia (principal); N17.9 Acute kidney failure, unspecified; E11.43 Type 2 diabetes mellitus with diabetic autonomic (poly)neuropathy; E11.42 Type 2 diabetes mellitus with diabetic polyneuropathy; E11.319 Type 2 diabetes mellitus with unspecified diabetic retinopathy without macular edema; Z79.4 Long term (current) use of insulin; G93.41 Metabolic encephalopathy; F17.210 Nicotine dependence, cigarettes, uncomplicated; I10 Essential (primary) hypertension; K31.84 Gastroparesis; H35.00 Unspecified background retinopathy; Z60.9 Problem related to social environment, unspecified; G89.4 Chronic pain syndrome; F81.9 Developmental disorder of scholastic skills, unspecified; N40.0 Benign prostatic hyperplasia without lower urinary tract symptoms; R45.6 Violent behavior; Z79.899 Other long term (current) drug therapy
CPT/HCPCS: 36415; 70450; 71045; 80053; 80307; 81001; 82009; 82077; 82962; 84484; 85025; 93005; 96361; 96372; 96374; 97802; 99218; 99285; 99406; J7030; A4216; G0378; J3486

== ENCOUNTER 2021-11-08 15:35 | Emergency (ER) | payer MEDICARE, MEDICAID, SELFPAY ==
[2021-11-08 15:37] VITALS: BP 126/75; PULSE 111; RESP 15; TEMP 37.1; O2SAT 96; BMI 36.1
[2021-11-08 15:40] VITALS: BP 126/75; PULSE 111; RESP 15; TEMP 37.1; O2SAT 96
--- NOTE | 2021-11-08 15:55 | EKG12_ITS ---
Test Reason : Blood Pressure : / mmHG Vent. Rate : 105 BPM Atrial Rate : 105 BPM P-R Int : 152 ms QRS Dur : 100 ms QT Int : 350 ms P-R-T Axes : 072 -74 044 degrees QTc Int : 462 ms Sinus tachycardia Low voltage QRS Left anterior fascicular block Possible Anterolateral infarct , age undetermined Abnormal ECG Confirmed by RAMIRO BOBO, CAYLA ([id number]), art editor HUBERT OSORIO ([id number]) on 11/11/2021 10:19:00 AM Referred By: Confirmed By:CAYLA RUBIO MD
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
[2021-11-08 16:17] LABS: Absolute Lymphocyte Count 1.83 X10^3/uL (0.83-4.51); Absolute Neutrophil Count 5.9 X10^3/uL (2.0-7.7); Basophil# 0.07 X10^3/uL; Basophil% 0.8 % (0-1); Eosinophil# 0.12 X10^3/uL; Eosinophils% 1.4 % (0-5); Hematocrit 46.2 % (40-54); Lymphocyte # 1.83 X10^3/ul (0.83-4.51); Lymphocyte % 20.9 % (19-41); Mean Corp Hgb Conc 32.5 g/dL (32-36); Mean Corpuscular Hgb 29.5 pg (27.0-32.0); Mean Corpuscular Volume 90.8 fL (80-94); Mean Platelet Vol. 11.2 fl (6.2-12.0); Monocyte# 0.79 X10^3/uL; NRBC Flagged by Analyzer 0 % (0-5); Neutrophil # 5.93 X10^3/uL (2.7-7.7); Neutrophil % 67.7 % (47-70); Platelet Count 258 K/mm3 (150-450); RBC Distribution Width CV 13.2 % (11.6-14.6); RBC Distribution Width SD 44.3 fl (35.1-43.9); Red Blood Count 5.09 M/mm3 (4.6-6.2); White Blood Count 8.8 K/mm3 (4.4-11.0)
[2021-11-08 16:51] LABS: AST(SGOT) 18 U/L (15-37); Alanine Aminotransfer ALT/SGPT 32 U/L (16-61); Albumin, Serum 3.8 g/dL (3.2-5.0); Alkaline Phosphatase 131 U/L (45-117); Anion Gap 7 (5-15); BUN 12 mg/dL (7-18); BUN/Creat Ratio 10.8 RATIO (10-20); Calcium,Total 9.2 mg/dL (8.5-10.1); Chloride 103 mmol/L (98-107); Creatinine, Serum 1.11 mg/dL (0.70-1.30); EST Glomerular Filtration Rate 72 mL/min (>60); Est Glom Filt Rate - Afr Amer 87 mL/min (>60); Estimated Creatinine Clearance 73.99 ml/min; Globulin 3.8 g/dL (2.2-4.2); Glucose 311 mg/dL (74-106); Protein, Total 7.6 g/dL (6.4-8.2); Sodium Level 137 mmol/L (136-145)
[2021-11-08] MEDS: Insulin Lispro 100 UNIT/ML INSULN.PEN 10 UNIT SC (17:23)
[2021-11-08] MEDS: 0.9% Normal Saline 1,000 ML 1000 ML IV (17:23)
[2021-11-08 17:25] VITALS: BP 130/71; PULSE 101; RESP 16; O2SAT 96
[2021-11-08 18:12] LABS: Amphetamine Urine VISTA NEGATIVE (<1000 ng/mL); Barbiturate Urine VISTA NEGATIVE (< 200 ng/mL); Benzodiazepine Urine VISTA NEGATIVE (< 200 ng/mL); Cocaine Urine VISTA NEGATIVE (< 300 ng/mL); Ecstacy Urine VISTA NEGATIVE (< 500 ng/mL); Methadone Urine VISTA NEGATIVE (< 300 ng/mL); PCP Urine VISTA NEGATIVE (< 25 ng/mL); THC Urine VISTA POSITIVE (< 50 ng/mL); Vista UDS pH Range 6
[2021-11-08 18:46] LABS: Bedside Glucose 254 mg/dL (74-106)
[2021-11-08 20:06] VITALS: RESP 16
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
--- NOTE | 2021-11-08 22:07 | CM.ED ---
Ayo faxed referral to [facility] and [facility]. AYO called Taylor at Crisis and advised her of the referral for inpatient psych to [facility] and [facility]. AYO received call from [facility]. Advised them of patient's psychotic symptoms. [facility] said that they will call medical. Celeste LIU
--- NOTE | 2021-11-08 22:11 | CM.ED ---
SW received call from [facility]. They declined patient.
[2021-11-08 22:30] VITALS: BP 136/86; PULSE 84; O2SAT 96
[2021-11-08] MEDS: LORazepam 2 MG/ML Syringe IV (23:47)
[2021-11-09] MEDS: metFORMIN HCl 500 MG Tablet PO (00:10)
[2021-11-09] MEDS: Insulin Glargine-YFGN 100 UNIT/ML Pen 35 UNIT SC (00:11)
--- NOTE | 2021-11-09 00:17 | ED.RN ---
2400 PT DECIDED TO LEave , pt walked down the ramp. police brought him back in hand cuffs. pt has been educated multiple times why he is here and he can not seem to comprehend.
--- NOTE | 2021-11-09 00:28 | NURSING ---
pt appears to be falling asleep.
[2021-11-09 00:30] LABS: Bedside Glucose 340 mg/dL (74-106)
[2021-11-09 00:48] VITALS: RESP 16
[2021-11-09 03:16] VITALS: PULSE 78; RESP 18; O2SAT 99
[2021-11-09 04:10] VITALS: BP 132/60; PULSE 71; RESP 18; O2SAT 98
[2021-11-09 05:48] VITALS: BP 132/61; PULSE 71; RESP 18; TEMP 36.6; O2SAT 98
[2021-11-09 07:45] VITALS: BP 121/70; PULSE 68; RESP 18; O2SAT 97
[2021-11-09] MEDS: LORazepam 2 MG/ML Syringe IV (08:00)
== END 2021-11-09 08:00 ==
PROVIDERS: Emergency Provider Emergency Medicine; PCP Family Medicine; Visit Provider Emergency Medicine
DX: F22 Delusional disorders (principal); F29 Unspecified psychosis not due to a substance or known physiological condition; E11.43 Type 2 diabetes mellitus with diabetic autonomic (poly)neuropathy; Z79.4 Long term (current) use of insulin; R41.0 Disorientation, unspecified; F17.210 Nicotine dependence, cigarettes, uncomplicated; I10 Essential (primary) hypertension; Z79.84 Long term (current) use of oral hypoglycemic drugs; K31.84 Gastroparesis; N40.0 Benign prostatic hyperplasia without lower urinary tract symptoms; Z79.899 Other long term (current) drug therapy
CPT/HCPCS: 70450; 80053; 80307; 82077; 82962; 85025; 87811; 93005; 96361; 96374; 96376; 99285; J7030; A4216

== ENCOUNTER → 2021-12-17 | Outpatient (CLI) | payer MEDICARE, MEDICAID, SELFPAY ==
--- NOTE | 2021-12-17 17:30 | MRI_ITS ---
STUDY: MRI BRAIN WITHOUT CONTRAST REASON FOR EXAM: Male, 61 years old. Pt is here waiting Partial scan refused any additional sequencesRIGHT hemiamopic field loss x 1 month TECHNIQUE: Standardized multiplanar fat and water weighted pulse sequences were obtained. COMPARISON: CT head 11/08/2021. FINDINGS: This study is extremely limited. Patient terminated the examination after 3 sequences. Patient motion on multiple sequences. Normal size of the ventricles and extra-axial spaces for the patient''s age. There are a limited number of small white matter hyperintensities, distributed throughout the deep white matter tracts of the cerebral hemispheres, consistent with mild chronic white matter ischemic changes. There is no extra-axial fluid accumulation. Signal hyperintensity in the left occipital lobe on T2 and diffusion-weighted imaging with nonspecific ADC maps. Pituitary gland is normal in height. Normal midbrain, lore and medulla. Normal cerebellum. Normal basal cisterns. Normal bilateral temporal bones. Normal visualized paranasal sinuses. MRI/Brain without Contrast IMPRESSION: Significantly limited due to premature termination of the study. Question acute left occipital infarct. Options for further evaluation include repeat CT scan or CT perfusion study if the patient can tolerate the procedure. Alternatively, MRI may be reattempted when the patient can tolerate procedure/with medication. Electronically Signed: Deloris Morrell MD at 18:24 EDT Reading Location ID and State: [id number] / Tel , Service support ,
[2021-12-17 17:56] LABS: CREATININE FINGERSTICK < 0.9 mg/dL (0.70-1.30); EGFR FINGERSTICK > 60.0000 mL/min (>60)
== END | disposition home or self-care (01) ==
LOC: MRI 17:18
PROVIDERS: PCP Family Medicine; Visit Provider Ophthalmology
DX: H53.461 Homonymous bilateral field defects, right side (principal); Z53.29 Procedure and treatment not carried out because of patient's decision for other reasons
CPT/HCPCS: 70551

== ENCOUNTER 2021-12-28 20:49 | Emergency (ER) | payer MEDICARE, MEDICAID, SELFPAY ==
[2021-12-28 20:50] VITALS: BP 157/90; PULSE 88; RESP 16; TEMP 37.2; O2SAT 98; BMI 39.7
--- NOTE | 2021-12-28 21:33 | EKG12_ITS ---
Test Reason : AEM PAIN Blood Pressure : / mmHG Vent. Rate : 087 BPM Atrial Rate : 087 BPM P-R Int : 154 ms QRS Dur : 090 ms QT Int : 366 ms P-R-T Axes : 074 -88 057 degrees QTc Int : 440 ms Normal sinus rhythm Low voltage QRS Left anterior fascicular block Possible Lateral infarct , age undetermined Abnormal ECG Confirmed by JUDE FERRER MD ([id number]), society editor HUBERT OSORIO ([id number]) on 12/31/2021 12:40:43 PM Referred By: Confirmed By:JUDE FERRER MD
--- NOTE | 2021-12-28 21:34 | EDS_ITS ---
HPI History of Present Illness Chief Complaint: General Illness Informant: patient Onset/Context/Timing Onset: Days and Weeks Context: Gradual Onset Timing: Intermittent Current Severity: Mild Maximum Severity: Mild Narrative Narrative: 61-year-old male history of diabetes and mental health issues. He has pain in both hands is been intermittent for the last 2 to 3 days. Also had some shortness of breath for weeks. Not specific associated with exertion. Denies any specific chest pain. No fever or chills. No cough. No nausea vomiting or diarrhea. No melena. He has no cardiac history. He is never had a DVT or PE. No leg swelling. No travel or surgery. Prior similar symptoms: Yes Recent Illness/Hospitalization: No PFSH [facility] Medical History Acute hyperglycemia BPH (benign prostatic hyperplasia) Chronic pain syndrome Depression Diabetes mellitus, type II Failure to thrive Gastroparesis due to DM History of BPH History of diabetes mellitus History of opioid abuse Hypertension Illiterate Neuropathy Tobacco use Urinary tract infection with hematuria Home Medications tamsulosin 0.4 mg capsule 0.8 mg PO DAILY prostate 10/04/15 [History Last Taken 04/06/19] amitriptyline 100 mg tablet 1 tab PO QHS PRN Sleep 10/30/21 [History Last Taken Unknown] meloxicam 7.5 mg tablet 1 tab PO BID PRN foot pain 10/30/21 [History Last Taken Unknown] metformin 500 mg tablet 1 tab PO BID diabetes 10/30/21 [History Last Taken Unknown] insulin lispro 100 unit/mL subcutaneous pen (Humalog KwikPen (U-100) Insulin) 20 unit (0.2 mL) subcut TIDCM #15 mL 10/31/21 [Rx Last Taken Unknown] sennosides 8.6 mg-docusate sodium 50 mg tablet (Stool Softener-Stimulant Laxative) 2 tab PO BID PRN PRN Constipation #0 tabs 10/31/21 [Rx Last Taken Unknown] insulin glargine U-300 conc 300 unit/mL (3 mL) subcutaneous pen 35 unit (0.1167 mL) subcut BID 30 days #3 mL 11/01/21 [Rx Last Taken Unknown] Allergy/AdvReac Type Severity Reaction Status Date / Time No Known Allergies Allergy Verified 12/28/21 20:49 Family History Other Diabetes Surgical History Status post ORIF of fracture of ankle Social History Smoking Status: Current every day smoker tobacco type: cigarettes alcohol intake: former substance use type: does not use ROS ROS ED ROS Narrative Arm discomfort. Dyspnea. Review of Systems ROS Unobtainable: Denies due to encephalopathy Constitutional Constitutional ED: Denies chills or fever(s) Eyes Eyes: Denies blurry vision ENT ENT ED: Denies ear pain Cardiovascular Cardiovascular: Denies chest pain, palpitations or racing heartbeat Respiratory/Chest Respiratory/Chest: Reports dyspnea; Denies cough Gastrointestinal Gastrointestinal: Denies abdominal pain, constipation, diarrhea, melena, nausea or vomiting Genitourinary Genitourinary ED: Denies dysuria or hematuria Musculoskeletal Musculoskeletal: Denies arthralgias Integumentary Denies abscess Neurologic Neurologic: Denies headache(s) Psychiatric Psychiatric: Denies anxiety Endocrine Endocrinology: Denies cold intolerance Hematologic/Lymphatic Hematologic/Lymphatic: Reports none Allergic/Immunologic Allergic/Immunologic ED: Denies mouth swelling or tongue swelling EXAM Physical Exam Narrative Exam Narrative: 41-year-old male no acute distress. Vital signs stable afebrile. Pulse ox 98% on room air no signs hypoxia. H EENT exam unremarkable. Neck nontender no lymphadenopathy. Lungs clear to auscultation bilaterally. Heart regular rhythm no murmur. Abdomen soft nontender. Moving all 4 extremities. Calves nontender without edema or cords. Normal motor strength. Normal radial pulses. Back nontender. Neurologically is awake and alert with no focal motor deficits. Benign exam. Const Vital Signs: 12/28/21 20:50 Temperature 98.9 F Temperature Source Temporal Pulse Rate 88 Respiratory Rate 16 Blood Pressure 157/90 H Blood Pressure Mean 112 Pulse Ox 98 Oxygen Delivery Method Room Air Positive well nourished, well developed and obese; Negative for cachectic, contractures or unkempt General Appearance ED: well developed and NAD; Negative for unkempt, cachectic, contractures, cyanotic, diaphoretic or pallor Nutritional Appearance: obese; Negative for cachectic HEENT Reports moist mucous membranes; Denies dry mucous membranes Negative for trauma or tenderness Mouth ED: No dry mucous membranes Mouth: No dry mucous membranes Eyes PERRL and EOMs intact bilaterally General Eye ED: Negative for pale conjunctiva or scleral icterus Neck no lymphadenopathy, supple and no JVD General: Negative for tenderness Lymph Lymphatic: Negative for other Chest Wall inspection of chest normal and palpation of chest normal Chest: Negative for other Resp normal respiratory effort and clear to auscultation bilaterally Effort and Inspection: Negative for retractions Auscultation: Negative for rales, rhonchi or wheezes Cardio regular rate, regular rhythm, S1 normal heart sound, S2 normal heart sound and no murmurs Palpation: Negative for palpable S3 Rate: Negative for bradycardia Rhythm: Negative for abnormal rhythm GI normal to inspection, nondistended, normoactive bowel sounds, non-tender, non- distended and no masses Inspection: Negative for abdominal distention Auscultation: normoactive bowel sounds Palpation: soft; Negative for tender or guarding Back/Spine no CVA tenderness General Back: Negative for CVA tenderness Cervical Spine: Negative for cervical spine tenderness Thoracic Spine / Upper Back: Negative for thoracic spinal tenderness Lumbar Spine / Lower Back: Negative for lumbar spinal tenderness Extremity normal to inspection General Extremety ED: Negative for edema or tenderness General Extremity: Negative for edema Neuro oriented x3 and CN's II-XII intact bilaterally Sensorium / Orientation: alert; Negative for orientation impaired, lethargic or stuporous Motor Exam: strength 5/5 throughout; Negative for general weakness Psych mental status grossly normal Appearance: Negative for unkempt Attitude: No agitated Mood & Affect: Negative for depressed, anxious or tearful Skin no rashes or lesions noted, no wounds and skin turgor normal General Skin Exam: elasticity normal; Negative for jaundice or pallor Lesions: No lesion noted Trauma: Negative for abrasion Wounds: Negative for wounds noted MDM MDM MDM Narrative Medical decision making narrative: 61-year-old gentleman with arm discomfort. Subjective dyspnea. Benign exam. He will undergo cardiac work-up. My clinical suspicion is low. He is in the right age range and is overweight and a smoker. Repeat exam patient did not want to wait any longer. We are just waiting on his lab results. The ER was busy but he did not waited very long for his lab test. He was getting anxious and left without being discharged. I went back to reexamine him and his left. A chest x-ray was ordered he never had that obtained. Lab Data Attestation: I reviewed the patient's lab results. Lab results narrative: CBC shows a white count 12.7. H&H 13.9 and 43. Electrolytes unremarkable gap of 6 normal BUN creatinine. Glucose 106. Troponin 25. Labs: Laboratory Results - last 24 hr 12/28/21 12/28/21 21:40 21:40 WBC 12.7 H RBC 4.72 Hgb 13.9 Hct 43.0 MCV 91.1 MCH 29.4 MCHC 32.3 RDW Std Deviation 42.1 RDW Coeff of Halley 12.8 Plt Count 226 MPV 10.3 Immature Gran % (Auto) 0.500 Neut % (Auto) 70.9 H Lymph % (Auto) 17.9 L [place] % (Auto) 9.3 Eos % (Auto) 0.7 Baso % (Auto) 0.7 Absolute Neuts (auto) 9.0 H Absolute Lymphs (auto) 2.28 Nucleated RBC % 0 Sodium 141 Potassium 4.0 Chloride 105 Carbon Dioxide 30.0 Anion Gap 6 BUN 13 Creatinine 1.02 Estim Creat Clear Calc 75.44 Est GFR (MDRD) Af Amer 96 Est GFR (MDRD) Non-Af 79 BUN/Creatinine Ratio 12.7 Glucose 106 Calcium 8.8 Troponin I High Sens 25 Discharge Plan Triage Chief Complaint: General Illness ED Provider: Yair Rodriguez Dx/Rx/DC Orders Clinical Impression: Anxiety, Eloped from emergency department Prescriptions: No Action tamsulosin 0.4 MG capsule 0.8 mg PO DAILY Rx Instructions: pt gives multiple answers for same questions metformin 500 mg tablet 1 tab PO BID Label Comments: take 1 tablet by mouth twice a day meloxicam 7.5 mg tablet 1 tab PO BID PRN (Reason: foot pain) Hold Instructions: Hold for 3 days Label Comments: take 1 tablet by mouth twice a day NEEDED FOR PAIN amitriptyline 100 mg tablet 1 tab PO QHS PRN (Reason: Sleep) Label Comments: take 1 tablet by mouth at bedtime insulin lispro [Humalog KwikPen Insulin] 100 unit/mL Insulin Pen 20 unit subcut TIDCM Qty: 15 0RF sennosides-docusate sodium [Stool Softener-Stimulant Laxat] 8.6-50 mg Tablet 2 tab PO BID PRN PRN (Reason: Constipation) Qty: 0 0RF insulin glargine U-300 conc 300 unit/mL (3 mL) insulin pen 35 unit subcut BID 30 Days Qty: 3 5RF Primary Care Provider: Nelson Xiong Referrals: Nelson Xiong DO [Primary Care Provider] - Disposition Disposition: Elopement Discharge Date/Time: 12/28/21 22:01
[2021-12-28 21:49] LABS: Absolute Lymphocyte Count 2.28 X10^3/uL (0.83-4.51); Basophil# 0.09 X10^3/uL; Basophil% 0.7 % (0-1); Eosinophil# 0.09 X10^3/uL; Eosinophils% 0.7 % (0-5); Hemoglobin 13.9 g/dL (13.0-16.5); Lymphocyte # 2.28 X10^3/ul (0.83-4.51); Lymphocyte % 17.9 % (19-41); Mean Corp Hgb Conc 32.3 g/dL (32-36); Mean Corpuscular Hgb 29.4 pg (27.0-32.0); Mean Corpuscular Volume 91.1 fL (80-94); Mean Platelet Vol. 10.3 fl (6.2-12.0); Monocyte# 1.18 X10^3/uL; Monocyte% 9.3 % (0-10); NRBC Flagged by Analyzer 0 % (0-5); Neutrophil # 9.04 X10^3/uL (2.7-7.7); Neutrophil % 70.9 % (47-70); Platelet Count 226 K/mm3 (150-450); RBC Distribution Width CV 12.8 % (11.6-14.6); RBC Distribution Width SD 42.1 fl (35.1-43.9); Red Blood Count 4.72 M/mm3 (4.6-6.2); White Blood Count 12.7 K/mm3 (4.4-11.0)
--- NOTE | 2021-12-28 21:54 | ED.RN ---
Pt. requested to leave AMA because I do not have time to wait here for 2 hours or my results I have things to do. Patient stated he would then just call back the ER later to get his results. This RN told pt. he could call his primary care Dr on Thursday for his results if he did not want to wait to speak with Dr. Pt. then requested a wheelchair even though patient had been walking to and from bathroom several times. IV removed and Dr. Rodriguez notified.
[2021-12-28 22:07] LABS: Anion Gap 6 (5-15); BUN 13 mg/dL (7-18); BUN/Creat Ratio 12.7 RATIO (10-20); Calcium,Total 8.8 mg/dL (8.5-10.1); Chloride 105 mmol/L (98-107); Creatinine, Serum 1.02 mg/dL (0.70-1.30); EST Glomerular Filtration Rate 79 mL/min (>60); Est Glom Filt Rate - Afr Amer 96 mL/min (>60); Estimated Creatinine Clearance 75.44 ml/min; Glucose 106 mg/dL (74-106); Sodium Level 141 mmol/L (136-145); Troponin-I HS (w/2H Reflex) 25 pg/mL (3.0-78.0)
[2021-12-28 23:46] LABS: Reflex Troponin-HS? (from REC) Y
== END 2021-12-28 22:01 | disposition left against medical advice (07) ==
PROVIDERS: Emergency Provider Emergency Medicine; PCP Family Medicine; Visit Provider Emergency Medicine
DX: F41.9 Anxiety disorder, unspecified (principal); E11.43 Type 2 diabetes mellitus with diabetic autonomic (poly)neuropathy; Z79.4 Long term (current) use of insulin; F17.210 Nicotine dependence, cigarettes, uncomplicated; M79.642 Pain in left hand; I10 Essential (primary) hypertension; M79.641 Pain in right hand; K31.84 Gastroparesis; E66.9 Obesity, unspecified; R06.02 Shortness of breath; Z79.84 Long term (current) use of oral hypoglycemic drugs; Z53.29 Procedure and treatment not carried out because of patient's decision for other reasons
CPT/HCPCS: 80048; 84484; 85025; 93005; 99283

== ENCOUNTER → 2022-11-18 | Outpatient (CLI) | payer MEDICARE, MEDICAID, SELFPAY ==
[2022-11-18 18:34] LABS: Absolute Lymphocyte Count 1.41 X10^3/uL (0.83-4.51); Absolute Neutrophil Count 6.9 X10^3/uL (2.0-7.7); Basophil# 0.09 X10^3/uL; Eosinophil# 0.11 X10^3/uL; Eosinophils% 1.2 % (0-5); Hematocrit 49.6 % (40-54); Hemoglobin 16.1 g/dL (13.0-16.5); Lymphocyte # 1.41 X10^3/ul (0.83-4.51); Lymphocyte % 15.2 % (19-41); Mean Corp Hgb Conc 32.5 g/dL (32-36); Mean Corpuscular Hgb 29.3 pg (27.0-32.0); Mean Corpuscular Volume 90.3 fL (80-94); Monocyte# 0.76 X10^3/uL; Monocyte% 8.2 % (0-10); NRBC Flagged by Analyzer 0 % (0-5); Neutrophil # 6.88 X10^3/uL (2.7-7.7); Neutrophil % 74.2 % (47-70); Platelet Count 211 K/mm3 (150-450); RBC Distribution Width CV 12.7 % (11.6-14.6); RBC Distribution Width SD 41.9 fl (35.1-43.9); Red Blood Count 5.49 M/mm3 (4.6-6.2); White Blood Count 9.3 K/mm3 (4.4-11.0)
[2022-11-18 18:50] LABS: Erythrocyte Sedimentation Rate 12 mm/hr (0-20)
[2022-11-18 18:54] LABS: AST(SGOT) 15 U/L (15-37); Alanine Aminotransfer ALT/SGPT 25 U/L (16-61); Albumin, Serum 3.9 g/dL (3.2-5.0); Alkaline Phosphatase 103 U/L (45-117); Anion Gap 8 (5-15); BUN 14 mg/dL (7-18); BUN/Creat Ratio 10.6 RATIO (10-20); CRP 3.92 mg/L (0.0-3.0); Calcium,Total 9.2 mg/dL (8.5-10.1); Chloride 104 mmol/L (98-107); Cholesterol 167 mg/dL (200); Creatinine, Serum 1.32 mg/dL (0.70-1.30); EST Glomerular Filtration Rate 59 mL/min (>60); Est Glom Filt Rate - Afr Amer 71 mL/min (>60); Globulin 3.8 g/dL (2.2-4.2); Glucose 193 mg/dL (74-106); High Density Lipoprotein 32 mg/dL; Potassium 3.7 mmol/L (3.5-5.1); Protein, Total 7.7 g/dL (6.4-8.2); Rheumatoid Factor < 10.0 IU/mL (<15); Sodium Level 138 mmol/L (136-145); Triglycerides 184 mg/dL; Very Low Density Lipoprotein 37 mg/dL (5-40)
[2022-11-20 14:09] LABS: CCP IgG Antibodies 8 units (0-19)
[2022-11-21 13:08] LABS: ANTINUCLEAR ANTIBODIES DIRECT Positive (Negative); Anti-Centromere B Ab <0.2 AI (0.0-0.9); Anti-Chromatin <0.2 AI (0.0-0.9); Anti-Jo <0.2 AI (0.0-0.9); Anti-Scleroderma-70 AB 0.3 AI (0.0-0.9); Anti-dsDNA Ab 1 IU/mL (0-9); SJOGREN'S Anti-SS-A test < 0.2 AI (0.0-0.9); SJOGREN'S Anti-SS-B test < 0.2 AI (0.0-0.9); Smith Ab <0.2 AI (0.0-0.9)
== END | disposition home or self-care (01) ==
LOC: BFHLAB 14:51
PROVIDERS: PCP Family Medicine; Referring Provider Family Medicine; Visit Provider Family Medicine
DX: E11.49 Type 2 diabetes mellitus with other diabetic neurological complication (principal); M35.1 Other overlap syndromes; E78.5 Hyperlipidemia, unspecified; M13.0 Polyarthritis, unspecified
CPT/HCPCS: 36415; 80053; 80061; 85025; 85652; 86038; 86140; 86200; 86225; 86235; 86431

== ENCOUNTER → 2023-08-21 | Outpatient (CLI) | payer MEDICARE, MEDICAID, SELFPAY | END | disposition home or self-care (01) | LOC: BFHLAB 15:42 | PROVIDERS: PCP Family Medicine; Visit Provider Family Medicine | DX: Z12.5 Encounter for screening for malignant neoplasm of prostate (principal) | CPT/HCPCS: 36415; 84153; G0103 ==

== ENCOUNTER 2024-02-13 18:09 | Emergency (ER) | payer MEDICARE, MEDICAID, SELFPAY ==
[2024-02-13 18:10] VITALS: BP 130/70; PULSE 104; RESP 18; TEMP 37.5; O2SAT 98; BMI 33.0
--- NOTE | 2024-02-13 18:30 | CT_ITS ---
STUDY: CT BRAIN WITHOUT CONTRAST REASON FOR EXAM: Male, 63 years old. ams RADIATION DOSAGE (If Supplied By Facility): CTDIvol = ( ) mGy, DLP = ( 863.6 ) mGycm TECHNIQUE: Transaxial CT imaging of the brain was performed without administration of intravenous contrast material. Individualized dose optimization techniques were used for this CT. COMPARISON: November 08, 2021. FINDINGS: Normal soft tissue structures. Normal calvarium. Normal size ventricles and extra-axial spaces for the patient''s age. Mild periventricular white matter disease.. Normal basal ganglia and thalami. Normal brainstem. Normal cerebellum. Empty sella deformity of uncertain clinical significance There is no intracranial hemorrhage. There are no findings of an acute ischemic infarction. Minor mucosal thickening of left maxillary sinus. CT/Brain/Head without Contrast IMPRESSION: Mild periventricular white matter disease most likely due to chronic small vessel ischemia. No mass or acute bleed. If concern for acute infarct MRI recommended. Electronically Signed: Patrick Case MD at 19:39 EST Reading Location ID and State: [address] [place] [address] Tel , Service support ,
--- NOTE | 2024-02-13 18:30 | EKG12_ITS ---
Test Reason : DYSRHYTHMIA Blood Pressure : */* mmHG Vent. Rate : 99 BPM Atrial Rate : 99 BPM P-R Int : 170 ms QRS Dur : 86 ms QT Int : 326 ms P-R-T Axes : 60 270 62 degrees QTcB Int : 418 ms Normal sinus rhythm Left axis deviation Anterolateral infarct (cited on or before 30-Sep-2021) Abnormal ECG Confirmed by NABIL BOBO, JUDE ([id number]), multimedia editor HÉCTOR ARNOLD ([id number]) on 02/15/2024 8:13:17 AM Referred By: Confirmed By: JUDE FERRER MD
--- NOTE | 2024-02-13 18:31 | RAD_ITS ---
STUDY: X-RAY CHEST REASON FOR EXAM: Male, 63 years old. cough TECHNIQUE: PA and lateral COMPARISON: October 30, 2021 FINDINGS: The lungs are clear and expanded. There is no demonstrated pleural abnormality. Normal size heart. Normal mediastinum and hi. Normal visualized pulmonary arteries. Normal visualized aortic arch and descending thoracic aorta. Dorsal spine demonstrates mild degenerative change. Normal visualized ribs, right clavicle, and shoulders. Old healed fracture of left clavicle There is no demonstrated abnormality of the visualized soft tissue structures of the upper abdomen. RAD/Chest PA and Lateral IMPRESSION: No acute cardiopulmonary pathology. Electronically Signed: Patrick Case MD at 19:42 EST ,
[2024-02-13 18:44] LABS: Absolute Lymphocyte Count 1.22 X10^3/uL (0.83-4.51); Absolute Neutrophil Count 8.2 X10^3/uL (2.0-7.7); Basophil# 0.09 X10^3/uL; Basophil% 0.9 % (0-1); Eosinophil# 0.07 X10^3/uL; Eosinophils% 0.7 % (0-5); Hemoglobin 15.3 g/dL (13.0-16.5); Lymphocyte # 1.22 X10^3/ul (0.83-4.51); Lymphocyte % 11.7 % (19-41); Mean Corp Hgb Conc 32.6 g/dL (32-36); Mean Corpuscular Hgb 29.6 pg (27.0-32.0); Mean Corpuscular Volume 90.9 fL (80-94); Mean Platelet Vol. 11.2 fl (6.2-12.0); Monocyte# 0.77 X10^3/uL; Monocyte% 7.4 % (0-10); NRBC Flagged by Analyzer 0 % (0-5); Neutrophil % 78.9 % (47-70); Platelet Count 167 K/mm3 (150-450); RBC Distribution Width CV 12.8 % (11.6-14.6); RBC Distribution Width SD 42.2 fl (35.1-43.9); Red Blood Count 5.17 M/mm3 (4.6-6.2); White Blood Count 10.4 K/mm3 (4.4-11.0)
[2024-02-13 19:14] VITALS: BP 108/76; PULSE 98; RESP 18; TEMP 36.9; O2SAT 93
[2024-02-13 19:22] LABS: ALB/GLOB Ratio 1.1 RATIO (0.9-2.4); AST(SGOT) 19 U/L (15-37); Alanine Aminotransfer ALT/SGPT 23 U/L (16-61); Albumin, Serum 3.4 g/dL (3.2-5.0); Alkaline Phosphatase 95 U/L (45-117); Anion Gap 8 (5-15); BUN 10 mg/dL (7-18); BUN/Creat Ratio 7.6 RATIO (10-20); Calcium,Total 8.7 mg/dL (8.5-10.1); Chloride 107 mmol/L (98-107); Creatinine, Serum 1.32 mg/dL (0.70-1.30); EST Glomerular Filtration Rate 59 mL/min (>60); Est Glom Filt Rate - Afr Amer 71 mL/min (>60); Estimated Creatinine Clearance 67.36 ml/min; Globulin 3.2 g/dL (2.2-4.2); Glucose 149 mg/dL (74-106); Potassium 3.8 mmol/L (3.5-5.1); Protein, Total 6.6 g/dL (6.4-8.2); Sodium Level 140 mmol/L (136-145); Troponin-I HS 29 pg/mL (3.0-78.0)
[2024-02-13 19:40] LABS: Red Blood Cells-Urine 0 SEEN /hpf (0-5)
[2024-02-13 19:41] LABS: Color, Urine Yellow (Yellow); Glucose, Dipstick Normal (Normal); Ketone-Dipstick 15 mg/dl (Negative); Leukocyte Esterase-Dipstick 25 /ul (Negative); Nitrite-Dipstick Negative (Negative); Occult Blood-Urine Negative /ul (Negative); Protein-Dipstick 30 mg/dl (Negative); Specific Gravity, Urine 1.025 (1.002-1.030); Urine Bilirubin Dipstick Negative (Negative); Urine Clarity Turbid (Clear); Urine Urobilinogen 4 mg/dl (Normal)
[2024-02-13 19:50] LABS: Bacteria 2+ /hpf (None Seen); Calcium Oxalate Crystals Ur 2+ /hpf (<or=2+); Hyaline Cast 10-25 SEEN /lpf (0-5); Mucous, Urine 3+ /hpf (<or=2+); Squamous Epithelial Cells - UA > 100 SEEN /hpf (0-5); White Blood Cells 25-50 SEEN /hpf (0-5)
--- NOTE | 2024-02-13 20:10 | ED.RN ---
Patient repeatedly asking for ice after being given ice. Patient then attempting to climb out of bed. Patient instructed to sit back in bed so he doesn't fall due to earlier unsteadiness. Patient refused and sat back in bed approx 2 minutes later. Patient given cup of ice per request.
--- NOTE | 2024-02-13 20:49 | ED.RN ---
During ambulation patient was unsteady while walking to end of hallway and back. Patient was swaying while ambulating in hallway.
--- NOTE | 2024-02-13 21:23 | EX.ED.DYSGE1 ---
HPI History of Present Illness Chief Complaint: Alt LOC Narrative Narrative: Patient is a 63-year-old male past medical history of diabetes, hypertension, BPH, history of opiate abuse, neuropathy who presented to the emergency department via EMS with a chief complaint of altered mental status. According to EMS please was called as patient was noted to be driving erratically. Upon arrival there they noted that the patient was at [employer] and he was very shaky and felt weak overall therefore they called EMS to have him brought here for further evaluation management. Patient states that he is mainly hungry currently. Patient's glucose was noted be normal for EMS. Patient denies any alcohol use. Denies any recent sick contacts denies being sick himself he states that earlier today he felt fine. [facility] Medical History Depression History of diabetes mellitus Illiterate Hypertension History of BPH Tobacco use BPH (benign prostatic hyperplasia) Diabetes mellitus, type II Gastroparesis due to DM Neuropathy Chronic pain syndrome History of opioid abuse Failure to thrive Home Medications ?Medication ?Instructions ?Recorded ?Last Taken ?Type tamsulosin 0.4 mg capsule 0.8 mg PO DAILY prostate 10/04/15 04/06/19 History amitriptyline 100 mg tablet 1 tab PO QHS PRN Sleep 10/30/21 Unknown History meloxicam 7.5 mg tablet 1 tab PO BID PRN foot pain 10/30/21 Unknown History metformin 500 mg tablet 1 tab PO BID diabetes 10/30/21 Unknown History insulin lispro 100 unit/mL 20 unit (0.2 mL) subcut TIDCM #15 10/31/21 Unknown Rx subcutaneous pen (Humalog KwikPen mL (U-100) Insulin) sennosides 8.6 mg-docusate sodium 2 tab PO BID PRN PRN Constipation 10/31/21 Unknown Rx 50 mg tablet (Stool #0 tabs Softener-Stimulant Laxative) insulin glargine U-300 conc 300 35 unit (0.1167 mL) subcut BID 30 11/01/21 Unknown Rx unit/mL (3 mL) subcutaneous pen days #3 mL alprazolam 1 mg tablet 1 mg PO TID PRN PRN anxiety 02/13/24 Unknown History aripiprazole 5 mg tablet 5 mg PO QHS 02/13/24 Unknown History aspirin 81 mg tablet,delayed 81 mg PO DAILY 02/13/24 Unknown History release meloxicam 15 mg tablet 15 mg PO DAILY 02/13/24 Unknown History Allergy/AdvReac Type Severity Reaction Status Date / Time No Known Allergies Allergy Verified 12/28/21 20:49 Family History Mother Ovarian cancer Father Leukemia Other Diabetes Surgical History History of tonsillectomy and adenoidectomy Status post ORIF of fracture of ankle Social History household members: none Smoking Status: Current every day smoker tobacco type: cigarettes alcohol intake: former substance use type: former substance user and opiates ROS ROS ED ROS Narrative Constitutional: Denies any headaches, lightheadedness, dizziness, fevers, chills Eyes: Denies change in vision double vision blurry vision Cardiovascular: Denies chest pain or palpitations Respiratory: Denies coughing wheezing shortness of breath Abdomen: Denies any abdominal pain nausea vomit diarrhea : Denies any urinary symptoms Neurological: Denies numbness, weakness, tingling Musculoskeletal: Denies back pain Skin: Denies rashes or lesions EXAM Physical Exam Narrative Exam Narrative: General: Patient lying in bed resting comfortably did not appear to be in acute distress Head: Atraumatic, normocephalic Eyes: PERRL bilateral, EOMI bilateral, no vertical or horizontal nystagmus noted on exam Neck: Soft, supple, trachea midline, Cardiovascular: Regular rate and rhythm no murmurs gallops rubs noted Respiratory: Clear to auscultation bilaterally no rales rhonchi or wheezes noted Abdomen: Soft, nondistended, nontender to palpation, bowel sounds present in 4 Extremities: +5/5 strength noted in the bilateral upper and lower extremities, radial pulses +2/4 in the bilateral upper extremities, no pedal edema on exam Neurological: Patient following commands knew that he was at [facility] year is 2023 and that we were in fall. NIH of 0 GCS 15 Skin: Warm, dry, intact no rashes or lesions noted Const Vital Signs: 02/13/24 18:10 02/13/24 19:14 Temperature 99.5 F H 98.4 F Temperature Source Oral Oral Pulse Rate 104 H 98 Respiratory Rate 18 18 Blood Pressure 130/70 H 108/76 Blood Pressure Mean 90 86 Pulse Ox 98 93 Oxygen Delivery Method Room Air Room Air MDM MDM MDM Narrative Medical decision making narrative: Patient is a 63-year-old male who presented via EMS with a chief complaint of generalized weakness and shakiness. Patient will have a workup performed here on the differential diagnose includes Melamin to hypoglycemia, UTI, pneumonia, ACS, intracranial hemorrhage. Once workup is obtained reviewed he will be reevaluated. Patient's CBC was reviewed and showed no evidence leukocytosis white blood count normal at 10.4, hemoglobin stable 15.3, platelet count normal at 167. Patient sodium normal at 140, potassium normal at 3.8, creatinine was 1.32 which is around his baseline according to previous blood draws. Patient's glucose was 7149, AST and ALT were 19 and 23 respectively. Patient had normal anion gap of 8. Patient's troponin was normal at 29, EKG reviewed and independently interpreted by myself which showed sinus rhythm with a rate of 99 bpm. Patient's urinalysis reviewed showed 25 leukocyte esterase negative nitrates greater than 100 squamous epithelial cells likely indicating contaminant sample with 2+ bacteria this will be sent for culture. Patient's CT head and brain without contrast reviewed and showed mild periventricular white matter disease most likely due to's chronic small vessel ischemia no mass or acute bleed noted if concern for acute infarct MRI is recommended there is no concern for acute infarct at this point time. Patient chest x-ray reviewed by myself and by radiology which showed no acute cardiopulmonary processes. On reevaluation the patient he would like to go home at this point time. Patient tolerated oral intake here and feels much improved. Patient does not have a ride home therefore we will have the [employer] take the patient home. Patient is agreeable with this plan. He was advised to follow-up with his primary care physician and return with worsening symptoms or other concerns. He is agreeable this plan. Lab Data Labs: Laboratory Results - last 24 hr 02/13/24 02/13/24 18:40 19:34 WBC 10.4 RBC 5.17 Hgb 15.3 Hct 47.0 MCV 90.9 MCH 29.6 MCHC 32.6 RDW Std Deviation 42.2 RDW Coeff of Halley 12.8 Plt Count 167 MPV 11.2 Immature Gran % (Auto) 0.400 Neut % (Auto) 78.9 H Lymph % (Auto) 11.7 L [place] % (Auto) 7.4 Eos % (Auto) 0.7 Baso % (Auto) 0.9 Absolute Neuts (auto) 8.2 H Absolute Lymphs (auto) 1.22 Nucleated RBC % 0 Sodium 140 Potassium 3.8 Chloride 107 Carbon Dioxide 25.0 Anion Gap 8 BUN 10 Creatinine 1.32 H Estim Creat Clear Calc 67.36 Est GFR (MDRD) Af Amer 71 Est GFR (MDRD) Non-Af 59 L BUN/Creatinine Ratio 7.6 L Glucose 149 H Calcium 8.7 Total Bilirubin 0.50 AST 19 ALT 23 Alkaline Phosphatase 95 Troponin I High Sens 29 Total Protein 6.6 Albumin 3.4 Globulin 3.2 Albumin/Globulin Ratio 1.1 Urine Color Yellow Urine Clarity Turbid Urine pH 5.0 Ur Specific [place] 1.025 Urine Protein 30 H Urine Glucose (UA) Normal Urine Ketones 15 H Urine Occult Blood Negative Urine Nitrite Negative Urine Bilirubin Negative Urine Urobilinogen 4 H Ur Leukocyte Esterase 25 H Urine RBC 0 SEEN Urine WBC 25-50 SEEN Ur Squamous Epith Cells > 100 SEEN Calcium Oxalate Crystal 2+ Urine Bacteria 2+ Hyaline Casts 10-25 SEEN Urine Mucus 3+ Radiography Diagnostic Testing: Clinical Impression(s) from Imaging Studies Brain CT 02/13/24 18:30 IMPRESSION: Mild periventricular white matter disease most likely due to chronic small vessel ischemia. No mass or acute bleed. If concern for acute infarct MRI recommended. Electronically Signed: Patrick Case MD at 19:39 EST Reading Location ID and State: [facility] / [place] Tel [phone], Service support , Chest X-Ray 02/13/24 18:31 IMPRESSION: No acute cardiopulmonary pathology. Electronically Signed: Patrick Case MD at 19:42 EST , Discharge Plan Triage Chief Complaint: Alt LOC ED Provider: Miki Chand Dx/Rx/DC Orders Clinical Impression: Generalized weakness Prescriptions: No Action tamsulosin 0.4 MG capsule 0.8 mg PO DAILY Rx Instructions: pt gives multiple answers for same questions metformin 500 mg tablet 1 tab PO BID Patient Comments: take 1 tablet by mouth twice a day meloxicam 7.5 mg tablet 1 tab PO BID PRN (Reason: foot pain) Patient Comments: take 1 tablet by mouth twice a day NEEDED FOR PAIN amitriptyline 100 mg tablet 1 tab PO QHS PRN (Reason: Sleep) Patient Comments: take 1 tablet by mouth at bedtime insulin lispro [Humalog KwikPen Insulin] 100 unit/mL Insulin Pen 20 unit subcut TIDCM Qty: 15 0RF sennosides-docusate sodium [Stool Softener-Stimulant Laxat] 8.6-50 mg Tablet 2 tab PO BID PRN PRN (Reason: Constipation) Qty: 0 0RF insulin glargine U-300 conc 300 unit/mL (3 mL) insulin pen 35 unit subcut BID 30 Days Qty: 3 5RF alprazolam 1 mg tablet 1 mg PO TID PRN PRN (Reason: anxiety) meloxicam 15 mg tablet 15 mg PO DAILY aspirin 81 mg tablet,delayed release (DR/EC) 81 mg PO DAILY aripiprazole 5 mg tablet 5 mg PO QHS Primary Care Provider: Nelson Xiong Referrals: Nelson Xiong DO [Primary Care Provider] - Activity Restrictions/Additional Instructions: Follow-up with your primary care physician outpatient setting. Return with worsening symptoms or other concerns. Print Language: Cook Islander Disposition Disposition: Home, Self Care
== END 2024-02-13 21:37 | disposition home or self-care (01) ==
PROVIDERS: Emergency Provider Emergency Medicine; PCP Family Medicine; Visit Provider Emergency Medicine
DX: R53.1 Weakness (principal); E11.43 Type 2 diabetes mellitus with diabetic autonomic (poly)neuropathy; Z79.4 Long term (current) use of insulin; I10 Essential (primary) hypertension; F17.210 Nicotine dependence, cigarettes, uncomplicated; Z79.82 Long term (current) use of aspirin; Z79.84 Long term (current) use of oral hypoglycemic drugs; Z79.899 Other long term (current) drug therapy
CPT/HCPCS: 70450; 71046; 80053; 81001; 84484; 85025; 87086; 93005; 99285; A4216

== ENCOUNTER 2024-07-05 08:01 | Emergency (ER) | payer MEDICARE, MEDICAID, SELFPAY ==
[2024-07-05] VITALS (9 sets, daily range): BP systolic 107–138; BP diastolic 60–83; PULSE 73–82; RESP 14–16; TEMP 36.2–36.7; O2SAT 96–98; BMI 29.5
--- NOTE | 2024-07-05 08:17 | CT_ITS ---
PROCEDURE: SPINE CERVICAL WITHOUT CONTRAS (CTSPC), 07/05/2024 REASON FOR EXAM: FALL COMPARISON: None TECHNIQUE: CT cervical spine was performed without IV contrast. Multiplanar reformats were generated. RADIATION DOSE SUMMARY: CTDlvol: 27.13 mGy DLP: 597.98 mGycm One or more dose reduction techniques were used (e.g., Automated exposure control, adjustment of the mA and/or kV according to patient size, use of iterative reconstruction technique). FINDINGS: No cervical spinal fracture or acute malalignment identified. Vertebral body heights are preserved. Reversal of the normal cervical lordosis may be positional/degenerative or related to pain/muscular spasm. Mild cervicothoracic levoscoliosis may be positional. Multilevel spondylosis including degenerative ankylosis of the RIGHT C2-C3 facet joints. Variable spinal canal stenoses up to at least moderate.. Variable bony foraminal stenosis up to at least moderate/severe. Findings incompletely characterized by CT. Emphysema. Debris within the thoracic esophagus suggesting dysmotility or gastroesophageal reflux. Partially imaged mild debris within the distal aspect of the imaged trachea. CT/Spine Cervical without Contras IMPRESSION: 1. No cervical spinal fracture or acute malalignment identified. 2. Mild debris within the distal most partially imaged trachea could reflect as piration. 3. Additional description as above. Reading Location: [id number]
--- NOTE | 2024-07-05 08:17 | CT_ITS ---
PROCEDURE: BRAIN/HEAD WITHOUT CONTRAST (CTBR), 07/05/2024 REASON FOR EXAM: FALL, CONFUSIONN COMPARISON: None TECHNIQUE: CT head was performed without IV contrast. Multiplanar reformats were generated. RADIATION DOSE SUMMARY: CTDlvol: 44.99 mGy DLP: 812.98 mGycm One or more dose reduction techniques were used (e.g., Automated exposure control, adjustment of the mA and/or kV according to patient size, use of iterative reconstruction technique). FINDINGS: Cerebrum: Asymmetric hypodensity in the white matter of the LEFT parietal castro radiata. No visible intracranial hemorrhage or mass. Cerebellum/brainstem: Unremarkable. Note slight limitation due to beam hardening artifact. Ventricles/extra-axial spaces: Age-appropriate appearance. Paranasal sinuses/mastoid air cells: Unremarkable. Scalp/calvarium: Unremarkable. Other: Unremarkable. CT/Brain/Head without Contrast IMPRESSION: 1. Age-indeterminate hypodensity in the LEFT parietal white matter, possible se quela of asymmetric chronic microvascular ischemia, however acute or subacute ischemia can not be excluded in the absence of prior exams to establish stability. If there is clinical concern, recommend MRI. 2. No visible intracranial hemorrhage or other posttraumatic findings. 3. Additional description as above. Reading Location: [id number]
--- NOTE | 2024-07-05 08:17 | EKG12_ITS ---
Test Reason : FALL Blood Pressure : */* mmHG Vent. Rate : 73 BPM Atrial Rate : 73 BPM P-R Int : 178 ms QRS Dur : 88 ms QT Int : 426 ms P-R-T Axes : 74 -86 54 degrees QTcB Int : 469 ms Normal sinus rhythm Left axis deviation Low voltage QRS Possible Lateral infarct , age undetermined Abnormal ECG Confirmed by NABIL BOBO, JUDE ([id number]), editor sound HUBERT OSORIO ([id number]) on 07/07/2024 8:28:27 AM Referred By: Confirmed By: JUDE FERRER MD
--- NOTE | 2024-07-05 08:20 | ED.VIS.FALL ---
HPI HPI - Fall History of Present Illness Chief Complaint: Fall Detail of Chief Complaint: Fall Informant: patient Narrative Narrative: Patient presents with EMS from home after a fall today. Patient states that he had gone to the bathroom and when he turned around he lost his balance and fell onto his bottom. Patient was able to crawl and activate his medic alert button. EMS apparently got him in the bed and then apparently had another fall. Patient lives alone. Initially EMS called and stated that patient was ANO x 0 and was refusing coming to the hospital. I told him that if he had had a fall and he is confused and does not have capacity he cannot refuse that he needed to be brought in. Patient denies recent illness. Denies chest pain or abdominal pain. EMS states the patient had his medications laid out and it appeared as if though he had not been taking them for days [facility] Medical History Depression History of diabetes mellitus Illiterate Hypertension History of BPH Tobacco use BPH (benign prostatic hyperplasia) Diabetes mellitus, type II Gastroparesis due to DM Neuropathy Chronic pain syndrome History of opioid abuse Failure to thrive Home Medications ?Medication ?Instructions ?Recorded ?Last Taken ?Type tamsulosin 0.4 mg capsule 0.8 mg PO DAILY prostate 10/04/15 04/06/19 History metformin 500 mg tablet 1 tab PO BID diabetes 10/30/21 Unknown History insulin lispro 100 unit/mL 20 unit (0.2 mL) subcut TIDCM #15 10/31/21 Unknown Rx subcutaneous pen (Humalog KwikPen mL (U-100) Insulin) Held on 02/13/24. Instructions: per pt insulin glargine U-300 conc 300 35 unit (0.1167 mL) subcut BID 30 11/01/21 Unknown Rx unit/mL (3 mL) subcutaneous pen days #3 mL Held on 02/13/24. Instructions: per pt alprazolam 1 mg tablet 1 mg PO TID PRN anxiety 02/13/24 Unknown History aripiprazole 5 mg tablet 5 mg PO QHS 02/13/24 Unknown History aspirin 81 mg tablet,delayed 81 mg PO DAILY 02/13/24 Unknown History release meloxicam 15 mg tablet 15 mg PO DAILY 02/13/24 Unknown History docusate sodium 100 mg capsule 100 mg PO BID 07/05/24 Unknown History pramipexole 0.5 mg tablet 0.5 mg PO QHS 07/05/24 Unknown History trazodone 100 mg tablet 300 mg PO QHS 07/05/24 Unknown History Allergy/AdvReac Type Severity Reaction Status Date / Time No Known Allergies Allergy Verified 07/05/24 08:08 Family History Mother Ovarian cancer Father Leukemia Other Diabetes Surgical History History of tonsillectomy and adenoidectomy Status post ORIF of fracture of ankle Social History household members: none Smoking Status: Current every day smoker tobacco type: cigarettes alcohol intake: former substance use type: former substance user and opiates ROS ROS ED ROS Narrative Falls Review of Systems ROS Unobtainable: other Constitutional Constitutional ED: Reports lethargy; Denies chills, fever(s), sweats or weight loss Eyes Eyes: Denies blurry vision, change in vision or diplopia ENT ENT ED: Denies rhinorrhea or sore throat Cardiovascular Cardiovascular: Reports chest pain; Denies orthopnea or racing heartbeat Respiratory/Chest Respiratory/Chest: Denies cough, dyspnea, dyspnea on exertion, orthopnea or sputum Gastrointestinal Gastrointestinal: Denies abdominal pain, diarrhea, nausea or vomiting Genitourinary Genitourinary ED: Denies dysuria, hematuria or urinary frequency Musculoskeletal Musculoskeletal: Denies arthralgias, back pain, myalgias or neck pain Integumentary Denies abscess, Abrasions or rash Neurologic Neurologic: Reports other Details: Confusion ; Denies headache(s) or weakness Psychiatric Psychiatric: Denies anxiety, depression or suicidal thoughts Endocrine Endocrinology: Denies polydipsia, polyphagia or polyuria Hematologic/Lymphatic Hematologic/Lymphatic: Denies easy bleeding, easy bruising or lymphadenopathy Allergic/Immunologic Allergic/Immunologic ED: Denies mouth swelling, tongue swelling or urticaria EXAM Physical Exam Const Vital Signs: 07/05/24 08:03 07/05/24 08:08 07/05/24 08:31 Temperature 97.2 F L 98.1 F Temperature Source Oral Oral Pulse Rate 76 82 Respiratory Rate 14 16 Respiratory Effort Normal Blood Pressure 134/80 H 107/79 Blood Pressure Mean 98 88 Pulse Ox 96 98 Oxygen Delivery Method Room Air Room Air Room Air 07/05/24 09:02 07/05/24 09:02 07/05/24 10:00 Temperature 98 F 98 F Temperature Source Oral Oral Pulse Rate 78 78 80 Respiratory Rate 16 14 14 Respiratory Effort Blood Pressure 138/68 H 138/68 H 130/64 H Blood Pressure Mean 91 91 86 Pulse Ox 98 98 98 Oxygen Delivery Method 07/05/24 11:00 Temperature 98 F Temperature Source Oral Pulse Rate 77 Respiratory Rate 14 Respiratory Effort Blood Pressure 124/83 H Blood Pressure Mean 96 Pulse Ox 98 Oxygen Delivery Method Positive well nourished and well developed General Appearance ED: well developed and NAD HEENT Reports TM's clear and moist mucous membranes normocephalic and atraumatic; Negative for trauma or tenderness Tympanic Membrane ED: Yes TM's clear Eyes PERRL and EOMs intact bilaterally General Eye ED: Negative for pale conjunctiva or scleral icterus Neck no lymphadenopathy, supple and no JVD General: Negative for tenderness Chest Wall inspection of chest normal and palpation of chest normal Chest Narrative: Superficial linear abrasion left upper chest wall onto the left clavicle. No crepitus or subcu edema. Chest: Negative for tenderness Resp normal respiratory effort and clear to auscultation bilaterally Effort and Inspection: Negative for respiratory distress or pain with movement Auscultation: Negative for rhonchi, wheezes or diminished lung sounds Cardio regular rate, regular rhythm, S1 normal heart sound, S2 normal heart sound and no murmurs Peripheral Pulses: pulses 2+ throughout GI normal to inspection, nondistended, normoactive bowel sounds, soft to palpation, non-tender, non-distended and no masses Back/Spine no CVA tenderness and no thoracic nor lumbar tenderness Extremity normal to inspection General Extremety ED: Negative for edema General Extremity: Negative for edema Neuro oriented x3, CN's II-XII intact bilaterally, no sensory deficits noted and gait normal Neuro Narrative: Patient awake and alert. He is alert to person and place and month. Did not know the day. Sensorium / Orientation: awake, alert, oriented to person, oriented to place and oriented to time Motor Exam: strength 5/5 throughout and strength abnormal Psych mental status grossly normal Skin no rashes or lesions noted and no wounds MDM MDM MDM Narrative Medical decision making narrative: Patient presents with a fall. EMS thought patient was ANO x 0 and had concerns about him not taking his medications. On arrival to the emergency department he is ANO x 3 and appropriate. He knew his primary care physician. Answering questions appropriately. Because of the fall this morning CT scan of the brain without contrast obtained showed some chronic microvascular changes. CT of the C-spine was negative. CBC with differential was unremarkable. Chemistries unremarkable. Urinalysis was normal. Alcohol was negative. Patient does not want to be admitted and is adamant that he is safe to go home. I did have our social work instructor evaluate the patient who agrees that he is awake and alert and has capacity to make decision. He does have meals brought to him 5 days a week. She will contact Adult Protective Services so that they may follow-up with the patient. Lab Data Attestation: I reviewed the patient's lab results. Labs: Laboratory Results - last 24 hr 07/05/24 07/05/24 08:05 09:00 WBC 9.8 RBC 5.85 Hgb 17.5 H Hct 53.6 MCV 91.6 MCH 29.9 MCHC 32.6 RDW Std Deviation 44.4 H RDW Coeff of Halley 13.1 Plt Count 201 MPV 11.7 Immature Gran % (Auto) 0.400 Neut % (Auto) 61.5 Lymph % (Auto) 25.1 Overton % (Auto) 9.5 Eos % (Auto) 2.6 Baso % (Auto) 0.9 Absolute Neuts (auto) 6.1 Absolute Lymphs (auto) 2.47 Nucleated RBC % 0 Sodium 140 Potassium 4.1 Chloride 102 Carbon Dioxide 27.3 Anion Gap 11 BUN 7 Creatinine 0.93 Estim Creat Clear Calc 88.86 Est GFR (MDRD) Non-Af 93 BUN/Creatinine Ratio 7.3 L Glucose 100 H Lactic Acid 1.9 Calcium 9.2 Total Bilirubin 0.48 AST 18 ALT 11 Alkaline Phosphatase 92 Total Protein 6.8 Albumin 4.0 Globulin 2.8 Albumin/Globulin Ratio 1.4 Urine Color Yellow Urine Clarity Clear Urine pH 6.0 Ur Specific [place] 1.015 Urine Protein 15 H Urine Glucose (UA) Normal Urine Ketones Negative Urine Occult Blood Negative Urine Nitrite Negative Urine Bilirubin Negative Urine Urobilinogen 1 H Ur Leukocyte Esterase 25 H Urine RBC 0 SEEN Urine WBC 0-5 SEEN Ur Squamous Epith Cells 0-5 SEEN Urine Bacteria RARE Urine Mucus RARE Ethyl Alcohol < 10.1 Radiography Diagnostic Testing: Clinical Impression(s) from Imaging Studies Brain CT 07/05/24 08:17 IMPRESSION: 1. Age-indeterminate hypodensity in the LEFT parietal white matter, possible sequela of asymmetric chronic microvascular ischemia, however acute or subacute ischemia can not be excluded in the absence of prior exams to establish stability. If there is clinical concern, recommend MRI. 2. No visible intracranial hemorrhage or other posttraumatic findings. 3. Additional description as above. Reading Location: [facility] Cervical Spine CT 07/05/24 08:17 IMPRESSION: 1. No cervical spinal fracture or acute malalignment identified. 2. Mild debris within the distal most partially imaged trachea could reflect aspiration. 3. Additional description as above. Reading Location: [facility] Chest X-Ray 07/05/24 09:15 IMPRESSION: 1. No visible acute cardiopulmonary findings 2. Additional description as above. Reading Location: [facility] Pelvis X-Ray 07/05/24 09:15 IMPRESSION: 1. Suspected demineralization without visible acute displaced fracture. If there is persistent concern or if the patient is unable to bear weight, consider CT. 2. Additional description as above. Reading Location: [facility] 1 view chest x-ray obtained interpreted by myself as no evidence of infiltrate or pneumothorax or acute disease process. 1 view pelvis x-ray obtained showed no fractures of mitral rotation. Radiology in agreement. EKG Initial EKG: Attestation: I personally reviewed and interpreted this EKG as follows: Comments: Sinus rhythm with rate of 73 bpm with no acute ST segment changes Discharge Plan Triage Chief Complaint: Fall ED Provider: Stefano Roper Dx/Rx/DC Orders Clinical Impression: Fall Instructions: ED Fall Prevention Prescriptions: No Action tamsulosin 0.4 MG capsule 0.8 mg PO DAILY Rx Instructions: pt gives multiple answers for same questions metformin 500 mg tablet 1 tab PO BID insulin lispro [Humalog KwikPen Insulin] 100 unit/mL Insulin Pen 20 unit subcut TIDCM Qty: 15 0RF insulin glargine U-300 conc 300 unit/mL (3 mL) insulin pen 35 unit subcut BID 30 Days Qty: 3 5RF alprazolam 1 mg tablet 1 mg PO TID PRN (Reason: anxiety) meloxicam 15 mg tablet 15 mg PO DAILY aspirin 81 mg tablet,delayed release (DR/EC) 81 mg PO DAILY aripiprazole 5 mg tablet 5 mg PO QHS docusate sodium 100 mg capsule 100 mg PO BID pramipexole 0.5 mg tablet 0.5 mg PO QHS trazodone 100 mg tablet 300 mg PO QHS Primary Care Provider: Nelson Xiong Referrals: Nelson Xiong DO [Primary Care Provider] - 3-5 Days Print Language: Ukrainian Disposition Disposition: Home, Self Care
[2024-07-05] MEDS: 0.9% Normal Saline (1000mL) 1,000 ML 1000 ML IV (08:30)
[2024-07-05 08:46] LABS: Absolute Lymphocyte Count 2.47 X10^3/uL (0.83-4.51); Absolute Neutrophil Count 6.1 X10^3/uL (2.0-7.7); Basophil# 0.09 X10^3/uL; Basophil% 0.9 % (0-1); Eosinophil# 0.26 X10^3/uL; Eosinophils% 2.6 % (0-5); Hematocrit 53.6 % (40-54); Hemoglobin 17.5 g/dL (13.0-16.5); Lymphocyte # 2.47 X10^3/ul (0.83-4.51); Lymphocyte % 25.1 % (19-41); Mean Corp Hgb Conc 32.6 g/dL (32-36); Mean Corpuscular Hgb 29.9 pg (27.0-32.0); Mean Corpuscular Volume 91.6 fL (80-94); Mean Platelet Vol. 11.7 fl (6.2-12.0); Monocyte# 0.93 X10^3/uL; Monocyte% 9.5 % (0-10); NRBC Flagged by Analyzer 0 % (0-5); Neutrophil # 6.05 X10^3/uL (2.7-7.7); Neutrophil % 61.5 % (47-70); Platelet Count 201 K/mm3 (150-450); RBC Distribution Width CV 13.1 % (11.6-14.6); RBC Distribution Width SD 44.4 fl (35.1-43.9); Red Blood Count 5.85 M/mm3 (4.6-6.2); White Blood Count 9.8 K/mm3 (4.4-11.0)
[2024-07-05 09:10] LABS: Red Blood Cells-Urine 0 SEEN /hpf (0-5)
[2024-07-05 09:12] LABS: Alcohol, Blood (Medical)-Serum < 10.1 mg/dL (<=10.0); Lactic Acid 1.9 mmol/L (0.0-2.0)
--- NOTE | 2024-07-05 09:15 | RAD_ITS ---
PROCEDURE: CHEST 1 VIEW (PORTABLE) (RADCXPA_P), 07/05/2024 REASON FOR EXAM: FALL TECHNIQUE: A single portable AP view of the chest was obtained. COMPARISON: None FINDINGS: Heart: Borderline mild cardiomegaly for technique. Mediastinum: Unremarkable. Lungs/pleura: No focal consolidation. No sizeable pleural effusion or visible pneumothorax. Bones: Suspect demineralization. Lines and support devices: None. Other: None. RAD/Chest 1 View (Portable) IMPRESSION: 1. No visible acute cardiopulmonary findings 2. Additional description as above. Reading Location: [id number]
--- NOTE | 2024-07-05 09:15 | RAD_ITS ---
PROCEDURE: PELVIS 1 OR 2 VIEWS (RADPEL), 07/05/2024 REASON FOR EXAM: FALL TECHNIQUE: Single AP view of the pelvis was obtained. COMPARISON: None FINDINGS: Fracture/dislocation: None visible. Joint space(s): Mild joint space loss in the hips. Lumbar spondylosis, not well evaluated. Soft tissues: Unremarkable. Foreign bodies: None visible. Bone mineralization: Suspect demineralization. Other: None. RAD/Pelvis 1 or 2 Views IMPRESSION: 1. Suspected demineralization without visible acute displaced fracture. If the re is persistent concern or if the patient is unable to bear weight, consider CT. 2. Additional description as above. Reading Location: [id number]
[2024-07-05 09:23] LABS: Color, Urine Yellow (Yellow); Glucose, Dipstick Normal (Normal); Ketone-Dipstick Negative (Negative); Leukocyte Esterase-Dipstick 25 /ul (Negative); Nitrite-Dipstick Negative (Negative); Occult Blood-Urine Negative /ul (Negative); Protein-Dipstick 15 mg/dl (Negative); Specific Gravity, Urine 1.015 (1.002-1.030); Urine Bilirubin Dipstick Negative (Negative); Urine Clarity Clear (Clear); Urine Urobilinogen 1 mg/dl (Normal)
[2024-07-05 09:32] LABS: Squamous Epithelial Cells - UA 0-5 SEEN /hpf (0-5); White Blood Cells 0-5 SEEN /hpf (0-5)
[2024-07-05 09:33] LABS: Bacteria RARE /hpf (None Seen); Mucous, Urine RARE /hpf (<or=2+)
[2024-07-05 09:36] LABS: ALB/GLOB Ratio 1.4 RATIO (0.9-2.4); AST(SGOT) 18 U/L (<=37); Alanine Aminotransfer ALT/SGPT 11 U/L (<=46); Alkaline Phosphatase 92 U/L (40-129); Anion Gap 11 (5-15); BUN 7 mg/dL (4-19); BUN/Creat Ratio 7.3 RATIO (10-20); Calcium,Total 9.2 mg/dL (7.6-11.0); Carbon Dioxide 27.3 mmol/L (21.0-32.0); Chloride 102 mmol/L (98-108); Creatinine, Serum 0.93 mg/dL (0.70-1.20); EST Glomerular Filtration Rate 93 (>60); Estimated Creatinine Clearance 88.86 ml/min (50-250); Globulin 2.8 g/dL (2.2-4.2); Glucose 100 mg/dL (70-99); Potassium 4.1 mmol/L (3.3-5.1); Protein, Total 6.8 g/dL (5.9-8.4); Sodium Level 140 mmol/L (133-145); Total Bilirubin 0.48 mg/dL (0.00-1.30)
--- NOTE | 2024-07-05 12:35 | CM.ED ---
Social Work Patient was brought to ED after falling in his home. Patient states initially he was unable to get himself up, but he is now upset that he is at the hospital and feels if he would have been left alone for a little while longer, he would have been able to help himself. Patient was able to tell SW year, month, current location and where he lives. Patient states that he lives alone and reports no concerns completing daily self care tasks including cleaning, cooking and bathing. However when asked the last time patient had bathed, he stated he did not know. Patient also reports that he drives and denies any concerns with food, supplies or medications. Patient reports that he has heat, electric and running water in his apartment. Patient also reports to having a nurse come to the home once a week and a case making machine operator coming every couple months. Patient was unaware of what company the nurse works for and what agency the case making machine operator was from. [facility] was contacted to determine if patient was receiving services. was notified that Ginny Rodriguez, ph # [phone], was patients case making machine operator. SW called but received a VM stating there would be a return call within two days. JASMEET called back and spoke with the person evelyne. She was able to tell SW that patient was receiving visits from every quarter, that he has meals delivered 5 days a week, and that he is on a list to receive an aide 2 days a week as soon as someone is available. was also notified that patient adamantly refuses to tell any contacts such as family or friends. Evelyne FRAGOSO was notified of patient being in the ED, that patient appeared to be having difficulty with self care, and that EMS notified nursing that patient appeared to not be taking his medications as his weekly medications were laid out but not taken. requested patients visits be increased if possible. was unable to confirm a weekly nurse visit. did state they would also apply for a life alert for patient. [facility] was called to see if they were taking any new clients, SW was notified that they are unable to accept new referrals until the beginning of August. [facility] was called and message left requesting return call. Marietta Mills, [facility], DANCE ARTIST
--- NOTE | 2024-07-05 12:49 | CM.ED ---
Social Work Patient states that he has no way of getting home when discharged. SW asked if patient had family or friends that he could contact. Patient denies having any family or friends to pick him up. SW asked if a neighbor would be able to give him a ride, patient states he does not know any of his neighbors. Patient states that he does not have his wallet with him and he has no money to pay for a cab. SW contacted [facility] van, was told they would be unable to take patient home. [facility] provide a ride , ph: [phone], was contacted and ride arranged for patient. Patient to be picked up at 2:30 at the ED entrance. Provide a ride to call 15 min ahead of time to let staff know they are almost on site, Provide a ride will call ED service desk lead. Confirmation number for call #[phone], vehicle number [id number]. Patient notified of ride time. Marietta Mills, STREET [employer] LINE INSTALLER, 5TH GRADE TEACHER
--- NOTE | 2024-07-05 14:38 | CM.ED ---
Social work Received return call from Agustín with Adult Protective Services (ph: [phone]) and this SW answered questions about patient per Marietta العليWs notes. Agustín stated no further needs at this time and stated ability to go see patient at patient's home. Leydi Donohue, INSPECTOR GENERAL, ANIMAL ASSISTANT
== END 2024-07-05 14:23 | disposition home or self-care (01) ==
PROVIDERS: Emergency Provider Emergency Medicine; PCP Family Medicine; Visit Provider Emergency Medicine
DX: R41.0 Disorientation, unspecified (principal); E11.43 Type 2 diabetes mellitus with diabetic autonomic (poly)neuropathy; F17.210 Nicotine dependence, cigarettes, uncomplicated; I10 Essential (primary) hypertension; K31.84 Gastroparesis; R07.9 Chest pain, unspecified; R29.6 Repeated falls; Z91.81 History of falling
CPT/HCPCS: 70450; 71045; 72125; 72170; 80053; 81001; 82077; 83605; 85025; 87040; 93005; 96360; 99285; A4216

== ENCOUNTER 2024-07-11 12:09 | Emergency (ER) | payer MEDICARE, MEDICAID, SELFPAY ==
[2024-07-11] VITALS (8 sets, daily range): BP systolic 117–149; BP diastolic 61–88; PULSE 75–107; RESP 12–20; TEMP 36.7; O2SAT 94–99; BMI 30.5
--- NOTE | 2024-07-11 12:24 | CT_ITS ---
PROCEDURE: BRAIN/HEAD WITHOUT CONTRAST 07/11/2024 REASON FOR EXAM: FALL TECHNIQUE: Head CT without intravenous contrast. Coronal and Sagittal reconstruction series were provided. One or more dose reduction techniques were used (e.g., Automated exposure control, adjustment of the mA and/or kV according to patient size, use of iterative reconstruction technique. RADIATION DOSE SUMMARY: No contrast was utilized for this exam. COMPARISON: CT scan of the brain dated 07/05/2024 FINDINGS: Again noted is an asymmetric low-attenuation region in the white matter of the left parietal castro radiata. There is calcification of the choroid plexus and pineal gland. There is no hemorrhage, hematoma or mass effect. Smith and white matter is well differentiated. Cisterns sulci and ventricles are within normal limits. The cerebellum and brainstem are unremarkable. Paranasal sinuses and mastoid air cells are unremarkable. The scalp and calvarium appear unremarkable. CT/Brain/Head without Contrast IMPRESSION: The asymmetric density in the left parietal castro radiata appears similar when compared to the prior exam. No intracranial hemorrhage is seen. No displaced skull fractures are seen. Reading Location: [id number]
--- NOTE | 2024-07-11 12:24 | EKG12_ITS ---
Test Reason : ALT MS Blood Pressure : */* mmHG Vent. Rate : 74 BPM Atrial Rate : 74 BPM P-R Int : 176 ms QRS Dur : 84 ms QT Int : 380 ms P-R-T Axes : 71 -88 48 degrees QTcB Int : 421 ms Normal sinus rhythm Left axis deviation Cannot rule out Anterolateral infarct (cited on or before 30-Sep-2021) Abnormal ECG When compared with ECG of 05-Jul-2024 08:33, No significant change was found Confirmed by Landon Solorio ([id number]), community chest officer HUBERT OSORIO ([id number]) on 07/13/2024 10:05:37 AM Referred By: Confirmed By: Landon Solorio
--- NOTE | 2024-07-11 12:24 | CT_ITS ---
PROCEDURE: SPINE CERVICAL WITHOUT CONTRAS 07/11/2024 REASON FOR EXAM: FALLS Multiple recent falls. TECHNIQUE: Cervical spine CT without contrast. Coronal and Sagittal reconstruction series were provided. One or more dose reduction techniques were used (e.g., Automated exposure control, adjustment of the mA and/or kV according to patient size, use of iterative reconstruction technique RADIATION DOSE SUMMARY: CTDlvol: 25.72 mGy DLP: 550.9 mGycm COMPARISON: Comparison is made with prior study dated July 02, 2024. FINDINGS: Alignment: Straightening of the normal cervical lordosis. Vertebrae: Multilevel spondylosis. Soft Tissues: Unremarkable Other: C1-2: Unremarkable. C2-3: Mild degree of disc space narrowing. Uncovertebral arthrosis and hypertrophy worse on the left side causing neural foraminal stenosis. C3-4: Facet joint osteoarthritis and hypertrophy. Bilateral neural foraminal stenosis. C4-5: Mild degree of disc space narrowing. Anterior spondylosis. Uncovertebral arthrosis. Bilateral neural foraminal stenosis worse on the right side. C5-6: Mild degree of disc space narrowing. Anterior spondylosis. Uncovertebral arthrosis. Bilateral neural foraminal stenosis. C6-7: Marked degree of disc space narrowing and spondylosis. Bilateral neural foraminal stenosis. C7-T1: Unremarkable CT/Spine Cervical without Contras IMPRESSION: NO ACUTE CERVICAL FRACTURE. Stable examination. Reading Location: [place] [id number]
--- NOTE | 2024-07-11 12:26 | EDS_ITS ---
HPI History of Present Illness Chief Complaint: Alt LOC Detail of Chief Complaint: Falls Informant: patient Narrative Narrative: Patient presents to the emergency department via EMS from home after sustaining several falls today. Patient states that he tripped over his feet and then he could get his legs to work right. He had a similar visit recently to the emergency department for same. Patient apparently initially when EMS arrived was somewhat confused and disoriented. On arrival to the ER he is able to answer questions appropriately. He lives alone. Denies injury from the falls. He is not anticoagulated. Patient denies history of seizure. He does not drink alcohol. He denies chest pain or shortness of breath. Denies abdominal pain [facility] Medical History Depression History of diabetes mellitus Illiterate Hypertension History of BPH Tobacco use BPH (benign prostatic hyperplasia) Diabetes mellitus, type II Gastroparesis due to DM Neuropathy Chronic pain syndrome History of opioid abuse Failure to thrive Home Medications ?Medication ?Instructions ?Recorded ?Last Taken ?Type tamsulosin 0.4 mg capsule 0.8 mg PO DAILY prostate 10/1204/06/19 History metformin 500 mg tablet 1 tab PO BID diabetes Unknown History insulin lispro 100 unit/mL 20 unit (0.2 mL) subcut TID CM #15 10/31/21 Unknown Rx subcutaneous pen (Humalog KwikPen mL (U-100) Insulin) Held on 02/13/24. Instructions: per pt insulin glargine U-300 conc 300 35 unit (0.1167 mL) cade bcut BID 30 11/01/21 Unknown Rx unit/mL (3 mL) subcutaneous pen days #3 mL Held on 02/13/24. Instructions: per pt alprazolam 1 mg tablet 1 mg PO TID PRN anxiety 01/28 09/20 Unknown History aripiprazole 5 mg tablet 5 mg PO QHS 02/13/24 Unknown History aspirin 81 mg tablet,delayed 81 mg PO DAILY 02/13/24 U nknown History release meloxicam 15 mg tablet 15 mg PO DAILY 02/13/24 Unkn own History docusate sodium 100 mg capsule 100 mg PO BID 07/05/24 Unknown History pramipexole 0.5 mg tablet 0.5 mg PO QHS 07/05/24 Unkno wn History trazodone 100 mg tablet 300 mg PO QHS 07/05/24 Unkno wn History Allergy/AdvReac Type Severity Reaction Status Date / Time No Known Allergies Allergy Verified 07/05/24 08:08 Family History Mother Ovarian cancer Father Leukemia Other Diabetes Surgical History History of tonsillectomy and adenoidectomy Status post ORIF of fracture of ankle Social History household members: none Smoking Status: Current every day smoker tobacco type: cigarettes alcohol intake: former substance use type: former substance user and opiates ROS ROS ED ROS Narrative Falls Review of Systems ROS Unobtainable: other Constitutional Constitutional ED: Reports lethargy; Denies chills, fever(s), sweats or weight loss Eyes Eyes: Denies blurry vision, change in vision or diplopia ENT ENT ED: Denies rhinorrhea or sore throat Cardiovascular Cardiovascular: Denies chest pain, orthopnea or racing heartbeat Respiratory/Chest Respiratory/Chest: Denies cough, dyspnea, dyspnea on exertion, orthopnea or sputum Gastrointestinal Gastrointestinal: Denies abdominal pain, diarrhea, nausea or vomiting Genitourinary Genitourinary ED: Denies dysuria, hematuria or urinary frequency Musculoskeletal Musculoskeletal: Denies arthralgias, back pain, myalgias or neck pain Integumentary Denies abscess, Abrasions or rash Neurologic Neurologic: Reports weakness and other Details: Confusion ; Denies headache(s) Psychiatric Psychiatric: Denies anxiety, depression or suicidal thoughts Endocrine Endocrinology: Denies polydipsia, polyphagia or polyuria Hematologic/Lymphatic Hematologic/Lymphatic: Denies easy bleeding, easy bruising or lymphadenopathy Allergic/Immunologic Allergic/Immunologic ED: Denies mouth swelling, tongue swelling or urticaria EXAM Physical Exam Const Vital Signs: 07/11/24 12:10 07/11/24 13:15 Temperature 98.1 F Temperature Source Temporal Pulse Rate 107 H 77 Respiratory Rate 20 H 12 Blood Pressure 149/61 H Blood Pressure Mean 90 Pulse Ox 94 99 Oxygen Delivery Method Room Air Positive well nourished and well developed General Appearance ED: well developed and NAD HEENT Reports TM's clear and moist mucous membranes normocephalic and atraumatic; Negative for trauma or tenderness Tympanic Membrane ED: Yes TM's clear Eyes PERRL and EOMs intact bilaterally General Eye ED: Negative for pale conjunctiva or scleral icterus Neck no lymphadenopathy, supple and no JVD General: Negative for tenderness Chest Wall inspection of chest normal and palpation of chest normal Chest: Negative for tenderness Resp normal respiratory effort and clear to auscultation bilaterally Effort and Inspection: Negative for respiratory distress or pain with movement Auscultation: Negative for rhonchi, wheezes or diminished lung sounds Cardio regular rate, regular rhythm, S1 normal heart sound, S2 normal heart sound and no murmurs Peripheral Pulses: pulses 2+ throughout GI normal to inspection, nondistended, normoactive bowel sounds, soft to palpation, non-tender, non-distended and no masses Back/Spine no CVA tenderness and no thoracic nor lumbar tenderness Extremity normal to inspection General Extremety ED: Negative for edema General Extremity: Negative for edema Neuro oriented x3, CN's II-XII intact bilaterally, no sensory deficits noted and gait normal Sensorium / Orientation: awake, alert, oriented to person, oriented to place and oriented to time Motor Exam: strength 5/5 throughout and strength abnormal Psych mental status grossly normal Skin no rashes or lesions noted and no wounds MDM MDM MDM Narrative Medical decision making narrative: Patient presents with 2 falls today and concern for mental status change. Patient was seen by myself 6 days ago for similar type complaint and on arrival to the emergency department he was awake and alert and had capacity. Workup was negative at that time. Patient did not want to be admitted I had him evaluated by case management social worker as well. He apparently has Meals on Wheels and help that comes to the home. Etiology of his mental status change at that time was unclear. Presents similarly today with 2 falls without noted injury. EMS thought he was confused. On arrival to ER he is ANO x 3 and appropriate. He really has no complaints. CT scan of the brain without contrast obtained on my interpretation shows no acute intracranial hemorrhage or skull fracture however official report from radiology pending. CT C-spine was unremarkable. CBC with differential showed a normal white count of 8.7 with hemoglobin 16.8 and platelet count of 203. Chemistries are unremarkable. LFTs were normal. Urinalysis was normal. Chest x-ray unremarkable. Once again etiology of his confusion unclear. He recalls mechanical falls and tripping. Recommended admission for observation. He has no seizure history but certainly that would be within the differential. Will have case management social worker see him again. He is adamant that he does not want to be admitted. I recommended admission again and felt he should have further diag nostic testing such as possibly EEG and possible MRI to evaluate further as he does admit to some balance problems. I believe he has capacity to make that decision once again. We will ambulate the patient. Care of patient turned over to evening physician awaiting evaluation by case management social worker. I discussed case with hospitalist as well. If patient refuses admission recommended having patient sign out AGAINST MEDICAL ADVICE as I do feel he has capacity understands my concerns. Again in the differential would be seizure versus possibly dementia or possible other metabolic encephalopathy. I did I add a toxicology screen. During his last visit alcohol was negative and patient denies alcohol use. Lab Data Attestation: I reviewed the patient's lab results. Labs: Laboratory Results - last 24 hr 07/11/24 07/11/24 12:30 13:10 WBC 8.7 RBC 5.67 Hgb 16.8 H Hct 51.2 MCV 90.3 MCH 29.6 MCHC 32.8 RDW Std Deviation 42.6 RDW Coeff of Halley 12.9 Plt Count 203 MPV 11.8 Immature Gran % (Auto) 0.500 Neut % (Auto) 64.4 Lymph % (Auto) 24.3 [place] % (Auto) 7.0 Eos % (Auto) 2.9 Baso % (Auto) 0.9 Absolute Neuts (auto) 5.6 Absolute Lymphs (auto) 2.12 Nucleated RBC % 0 Sodium 140 Potassium 3.6 Chloride 101 Carbon Dioxide 24.6 Anion Gap 14 BUN 8 Creatinine 1.12 Estim Creat Clear Calc 74.94 Est GFR (MDRD) Non-Af 74 BUN/Creatinine Ratio 7.2 L Glucose 109 H Calcium 9.4 Total Bilirubin 0.63 AST 18 ALT 10 Alkaline Phosphatase 111 Troponin T High Sens 17 Total Protein 7.0 Albumin 4.1 Globulin 2.9 Albumin/Globulin Ratio 1.4 Urine Color Yellow Urine Clarity Clear Urine pH 5.0 Ur Specific [place] 1.025 Urine Protein 30 H Urine Glucose (UA) Normal Urine Ketones Negative Urine Occult Blood Negative Urine Nitrite Negative Urine Bilirubin 1 H Urine Urobilinogen 8 H Ur Leukocyte Esterase 25 H Urine RBC 0 SEEN Urine WBC 0-5 SEEN Ur Squamous Epith Cells 0-5 SEEN Calcium Oxalate Crystal RARE Urine Bacteria 0 SEEN Urine Mucus 3+ Radiography Diagnostic Testing: Clinical Impression(s) from Imaging Studies Brain CT 07/11/24 12:24 IMPRESSION: The asymmetric density in the left parietal castro radiata appears similar when compared to the prior exam. No intracranial hemorrhage is seen. No displaced skull fractures are seen. Reading Location: [id number] Cervical Spine CT 07/11/24 12:24 IMPRESSION: NO ACUTE CERVICAL FRACTURE. Stable examination. Reading Location: [facility] Chest X-Ray 07/11/24 12:35 IMPRESSION: No Acute Findings. Reading Location: [facility] 1 view chest x-ray obtained reviewed by myself no evidence of infiltrate or pneumothorax or acute disease process. Radiology in agreement EKG Initial EKG: Attestation: I personally reviewed and interpreted this EKG as follows: Comments: Sinus rhythm with ventricular rate of 74 bpm with no acute ST segment change Discharge Plan Triage Chief Complaint: Alt LOC ED Provider: Stefano Roper Dx/Rx/DC Orders Clinical Impression: Falls, Mental status change resolved Instructions: ED Confusion, ED FALL-from [id number] Prescriptions: No Action tamsulosin 0.4 MG capsule 0.8 mg PO DAILY Rx Instructions: pt gives multiple answers for same questions metformin 500 mg tablet 1 tab PO BID insulin lispro [Humalog KwikPen Insulin] 100 unit/mL Insulin Pen 20 unit subcut TIDCM Qty: 15 0RF insulin glargine U-300 conc 300 unit/mL (3 mL) insulin pen 35 unit subcut BID 30 Days Qty: 3 5RF alprazolam 1 mg tablet 1 mg PO TID PRN (Reason: anxiety) meloxicam 15 mg tablet 15 mg PO DAILY aspirin 81 mg tablet,delayed release (DR/EC) 81 mg PO DAILY aripiprazole 5 mg tablet 5 mg PO QHS docusate sodium 100 mg capsule 100 mg PO BID pramipexole 0.5 mg tablet 0.5 mg PO QHS trazodone 100 mg tablet 300 mg PO QHS Primary Care Provider: Nelson Xiong Referrals: Nelson Xiong DO [Primary Care Provider] - 3-5 Days Print Language: Tajik
--- NOTE | 2024-07-11 12:35 | RAD_ITS ---
PROCEDURE: CHEST 1 VIEW (PORTABLE) 07/11/2024 REASON FOR EXAM: WEAKNESS TECHNIQUE: Frontal view of the chest. COMPARISON: 07/05/2024 FINDINGS: Heart: The heart size is normal. Lungs: The lungs are clear. No large pleural effusion. RAD/Chest 1 View (Portable) IMPRESSION: No Acute Findings. Reading Location: [facility]
[2024-07-11] MEDS: 0.9% Normal Saline (1000mL) 1,000 ML 150 ML IV (12:40)
[2024-07-11 12:50] LABS: Absolute Lymphocyte Count 2.12 X10^3/uL (0.83-4.51); Absolute Neutrophil Count 5.6 X10^3/uL (2.0-7.7); Basophil# 0.08 X10^3/uL; Basophil% 0.9 % (0-1); Eosinophil# 0.25 X10^3/uL; Eosinophils% 2.9 % (0-5); Hematocrit 51.2 % (40-54); Hemoglobin 16.8 g/dL (13.0-16.5); Lymphocyte # 2.12 X10^3/ul (0.83-4.51); Lymphocyte % 24.3 % (19-41); Mean Corp Hgb Conc 32.8 g/dL (32-36); Mean Corpuscular Hgb 29.6 pg (27.0-32.0); Mean Corpuscular Volume 90.3 fL (80-94); Mean Platelet Vol. 11.8 fl (6.2-12.0); Monocyte# 0.61 X10^3/uL; NRBC Flagged by Analyzer 0 % (0-5); Neutrophil # 5.63 X10^3/uL (2.7-7.7); Neutrophil % 64.4 % (47-70); Platelet Count 203 K/mm3 (150-450); RBC Distribution Width CV 12.9 % (11.6-14.6); RBC Distribution Width SD 42.6 fl (35.1-43.9); Red Blood Count 5.67 M/mm3 (4.6-6.2); White Blood Count 8.7 K/mm3 (4.4-11.0)
[2024-07-11 13:18] LABS: Troponin T High Sensitivity 17 ng/L (<=22)
[2024-07-11 13:20] LABS: Bacteria 0 SEEN /hpf (None Seen); Red Blood Cells-Urine 0 SEEN /hpf (0-5)
[2024-07-11 13:21] LABS: ALB/GLOB Ratio 1.4 RATIO (0.9-2.4); AST(SGOT) 18 U/L (<=37); Alanine Aminotransfer ALT/SGPT 10 U/L (<=46); Albumin, Serum 4.1 g/dL (3.4-4.8); Alkaline Phosphatase 111 U/L (40-129); Anion Gap 14 (5-15); BUN 8 mg/dL (4-19); BUN/Creat Ratio 7.2 RATIO (10-20); Calcium,Total 9.4 mg/dL (7.6-11.0); Carbon Dioxide 24.6 mmol/L (21.0-32.0); Chloride 101 mmol/L (98-108); Creatinine, Serum 1.12 mg/dL (0.70-1.20); EST Glomerular Filtration Rate 74 (>60); Estimated Creatinine Clearance 74.94 ml/min (50-250); Globulin 2.9 g/dL (2.2-4.2); Glucose 109 mg/dL (70-99); Potassium 3.6 mmol/L (3.3-5.1); Sodium Level 140 mmol/L (133-145); Total Bilirubin 0.63 mg/dL (0.00-1.30)
[2024-07-11 13:52] LABS: Color, Urine Yellow (Yellow); Glucose, Dipstick Normal (Normal); Ketone-Dipstick Negative (Negative); Leukocyte Esterase-Dipstick 25 /ul (Negative); Nitrite-Dipstick Negative (Negative); Occult Blood-Urine Negative /ul (Negative); Protein-Dipstick 30 mg/dl (Negative); Specific Gravity, Urine 1.025 (1.002-1.030); Urine Bilirubin Dipstick 1 mg/dL (Negative); Urine Clarity Clear (Clear); Urine Urobilinogen 8 mg/dl (Normal)
[2024-07-11 13:58] LABS: Mucous, Urine 3+ /hpf (<or=2+); Squamous Epithelial Cells - UA 0-5 SEEN /hpf (0-5); White Blood Cells 0-5 SEEN /hpf (0-5)
[2024-07-11 13:59] LABS: Calcium Oxalate Crystals Ur RARE /hpf (<or=2+)
--- NOTE | 2024-07-11 14:41 | PCM.HP.STD ---
HPI - General General Date of Admission: 07/11/24 Date of Service: 07/11/24 Chief Complaint: Falls, transient confusion. HPI Narrative The patient is a 64 y/o M w/ PMHx: BPH with obstructive pathology, RLS, Diabetes mellitus type II with chronic neuropathy/gastroparesis, Tobacco use, HTN, HLD, Anxiety and Depression, recently seen 07/05/24 following mechanical fall noting that he been going to the bathroom when he lost his balance eventually having to crawl and activate his medic alert button initially reportedly ANO x 0 and refusing to come to the hospital but was eventually brought with unremarkable findings eventually and now improving to x 3 with decline at that time for admission reporting that he has meals brought to him however Adult Protective Services was also consulted and patient eventually allowed to go home given his preference who now re-presents to the [facility] ED again on 07/11/24 with recurrent history of several falls on day of presentation noting that he tripped over his feet and could not get his legs to work right prompting again EMS call with patient initially confused and disoriented however when they arrived EMS noted that he was more appropriate eventually prompting ED evaluation given concern. Workup in the ED included T98.1 Temporal, heart rate 107, BP 149/61, respiratory rate 20, 94% on room air with most recent repeat vitals heart rate 77, respiratory rate 22, 99% on room air, CBC with WBC 8.7, hemoglobin 16.8, platelet 203 without marked shift, CMP unremarkable aside glucose 109 with noted BUN/creatinine 8/1.12, GFR 74, troponin 17, urinalysis with elevated specific gravity 1.025, protein 30, nitrite negative, leukocyte esterase 25 with no obvious evidence of UTI, CT of the brain with asymmetric density in the left parietal castro radiata appears similar to previous, no intracranial hemorrhage, no displaced skull fractures, CT cervical spine with no acute fracture, chest x-ray with no acute findings, EKG []. In the ED patient ministered maintenance IV fluids. [facility] Medical History Depression History of diabetes mellitus Illiterate Hypertension History of BPH Tobacco use BPH (benign prostatic hyperplasia) Diabetes mellitus, type II Gastroparesis due to DM Neuropathy Chronic pain syndrome History of opioid abuse Failure to thrive Home Medications ?Medication ?Instructions ?Recorded ?Last Taken ?Type tamsulosin 0.4 mg capsule 0.8 mg PO DAILY prostate 10/04/15 04/06/19 History metformin 500 mg tablet 1 tab PO BID diabetes 10/30/21 Unknown History insulin lispro 100 unit/mL 20 unit (0.2 mL) subcut TIDCM #15 10/31/21 Unknown Rx subcutaneous pen (Humalog KwikPen mL (U-100) Insulin) Held on 02/13/24. Instructions: per pt insulin glargine U-300 conc 300 35 unit (0.1167 mL) subcut BID 30 11/01/21 Unknown Rx unit/mL (3 mL) subcutaneous pen days #3 mL Held on 02/13/24. Instructions: per pt alprazolam 1 mg tablet 1 mg PO TID PRN anxiety 02/13/24 Unknown History aripiprazole 5 mg tablet 5 mg PO QHS 02/13/24 Unknown History aspirin 81 mg tablet,delayed 81 mg PO DAILY 02/13/24 Unknown History release meloxicam 15 mg tablet 15 mg PO DAILY 02/13/24 Unknown History docusate sodium 100 mg capsule 100 mg PO BID 07/05/24 Unknown History pramipexole 0.5 mg tablet 0.5 mg PO QHS 07/05/24 Unknown History trazodone 100 mg tablet 300 mg PO QHS 07/05/24 Unknown History Allergy/AdvReac Type Severity Reaction Status Date / Time No Known Allergies Allergy Verified 07/05/24 08:08 Family History Mother Ovarian cancer Father Leukemia Other Diabetes Surgical History History of tonsillectomy and adenoidectomy Status post ORIF of fracture of ankle Social History household members: none Smoking Status: Current every day smoker tobacco type: cigarettes alcohol intake: former substance use type: former substance user and opiates Vital Signs Vital Signs Vital Signs: 07/11/24 12:10 07/11/24 13:15 Temperature 98.1 F Temperature Source Temporal Pulse Rate 107 H 77 Respiratory Rate 20 H 12 Blood Pressure 149/61 H Blood Pressure Mean 90 Pulse Ox 94 99 Oxygen Delivery Method Room Air Weight Weight: 200 lb 13.458 oz Body Mass Index (BMI) 30.5 Results Lab / Micro Data 07/11/24 12:30 07/11/24 12:30 Labs: Laboratory Results - last 24 hr 07/11/24 12:30: WBC 8.7, RBC 5.67, Hgb 16.8 H, Hct 51.2, MCV 90.3, MCH 29.6, MCHC 32.8, RDW Std Deviation 42.6, RDW Coeff of Halley 12.9, Plt Count 203, MPV 11.8, Immature Gran % (Auto) 0.500, Neut % (Auto) 64.4, Lymph % (Auto) 24.3, [place] % (Auto) 7.0, Eos % (Auto) 2.9, Baso % (Auto) 0.9, Absolute Neuts (auto) 5.6, Absolute Lymphs (auto) 2.12, Nucleated RBC % 0, Sodium 140, Potassium 3.6, Chloride 101, Carbon Dioxide 24.6, Anion Gap 14, BUN 8, Creatinine 1.12, Estim Creat Clear Calc 74.94, Est GFR (MDRD) Non-Af 74, BUN/Creatinine Ratio 7.2 L, Glucose 109 H, Calcium 9.4, Total Bilirubin 0.63, AST 18, ALT 10, Alkaline Phosphatase 111, Troponin T High Sens 17, Total Protein 7.0, Albumin 4.1, Globulin 2.9, Albumin/Globulin Ratio 1.4 07/11/24 13:10: Urine Color Yellow, Urine Clarity Clear, Urine pH 5.0, Ur Specific [place] 1.025, Urine Protein 30 H, Urine Glucose (UA) Normal, Urine Ketones Negative, Urine Occult Blood Negative, Urine Nitrite Negative, Urine Bilirubin 1 H, Urine Urobilinogen 8 H, Ur Leukocyte Esterase 25 H, Urine RBC 0 SEEN, Urine WBC 0-5 SEEN, Ur Squamous Epith Cells 0-5 SEEN, Calcium Oxalate Crystal RARE, Urine Bacteria 0 SEEN, Urine Mucus 3+ Imaging Radiology Impression Brain CT 07/11/24 12:24 IMPRESSION: The asymmetric density in the left parietal castro radiata appears similar when compared to the prior exam. No intracranial hemorrhage is seen. No displaced skull fractures are seen. Reading Location: [facility] Cervical Spine CT 07/11/24 12:24 IMPRESSION: NO ACUTE CERVICAL FRACTURE. Stable examination. Reading Location: [facility] Chest X-Ray 07/11/24 12:35 IMPRESSION: No Acute Findings. Reading Location: [facility]
[2024-07-11 15:58] LABS: Troponin T High Sens 2 HR 15 ng/L (<=22)
--- NOTE | 2024-07-11 16:14 | CM.ED ---
Social Work Psychiatric Assessment Reason for consult: altered mental status Informant(s): ?medical records, patient, EMS reports Chief Complaint:? Patient presented today to [facility] ED after falling several times; per EMS, patient was confused and disoriented with medication everywhere. Last week on 07/05/24, patient presented to [facility] ED for similar concerns and discharged back home. Patient stated arriving at [facility] via ambulance, though patient states just needing help off the floor. Patient reported only falling once today when it was reported patient had several falls today. Patient stated being able to care for self, but stated not knowing when patient had last bathed and only knowing how to make peanut butter crackers and pickled eggs. Patient could not recall the name of the store patient goes to every week and could not recall why [facility] sounded familiar. Patient was able to tell this SW that patient is having difficulty sleeping at night, but patient stated not knowing what medication patient takes. Patient stated a nurse called for the ambulance today when the nurse was present for out patient medications, but this was unable to be confirmed. Per last week's EMS report, patient called for help via patient's medical alert button. Patient stated having a stroke (unable to state when) and reported not being able to read well since. Patient stated I don't know my meds, though patient later stated dropping medication on the floor on purpose so patient could pick it back up. At one point during assessment, patient stated did you just hear that person knocking? when nobody was near patient's door. Patient denies feeling suicidal or homicidal, but patient is unable to care for patient's basic self-care needs. Marital/Social History/Sexual Orientation/Gender Identity: patient is a 64 year old male. Living Situation: patient lives alone in an apartment. Support/Resources: patient reports having nobody to support patient. Patient states having two children, Aden and Andria, but states not talking to either of them in years. Patient states not having any friends or family and not knowing any of patient's neighbors. Patient has no emergency contacts and states patient does not need them. History: none Education and Employment History: patient's education history is unknown, though medical records show that patient completed 12th grade. Previous medical records also show that patient receives disability for not being able to read. Patient reported to this SW today that patient had a stroke and that is the reason patient cannot read. Patient is reportedly disabled and does not work. Mental Health Treatment/History: patient reports no current counseling or psychiatric care. Patient was previously placed at [facility]. Patient is prescribed Xanax and Abilify, though it is believed patient has not been taking medication as prescribed. [facility] not been seen there except for one time 3 years ago by a Crisis horses or mules teamster. Triggers/Stressors to mental health: patient denied being stressed, but medical records show that patient has no relationship with patient's children and patient voiced having difficulty sleeping at night currently. Coping Skills: patient stated enjoying watching TV, though stated keeping to self most of the time. History of Abuse (physical/sexual/verbal/emotional): patient denied. Substance Abuse Current/Historical: per medical records, patient has history of substance use though all specifics are unknown. Patient stated on 04/13/19 that patient had a history of abusing oxycodone. Patient had THC in patient's drug screen on 11/08/21. Risk to Self/Others: ? Suicidal (thought/plan/intent/attempt): patient denies current or historical suicidal thoughts, plans, intent, or attempts. ? Access to Lethal Means: unable to assess. ? Homicidal (thought/plan/intent/attempt): patient denies current or historical homicidal thoughts, plans, intent, or attempts. ? History of Violence (self/others/objects): patient denies, though medical records state having to be restrained at one point while in the ED. Patient has also reportedly been verbally aggressive before while in the ED. Mental Status Exam: ??? Orientation: patient oriented to time of day (almost 1500), place ([facility]), and person (both name and ); however, patient stated the year was 2524 and was not certain who the President was. Patient was able to share patient's address, though stated the date was July 10. ??? Memory: impaired Appearance/General Behavior: disheveled, agitated at times, slumped Mood/Affect: anxious, blunted Communication Pattern:? responds to questions though delayed, incoherent at times Thought Process:? delayed responses, possibly responding to internal stimuli (stated did you just hear him knocking? when nobody was at or near patient's door). General Intellectual Functioning: ??average. Judgment: poor Insight: poor [place] SS[place] SUICIDAL IDEATION Ask questions 1 and 2.? If both are negative, proceed to ?Suicidal Behavior? section. If the answer question 2 is yes, ask questions 3, 4, 5.? If the answer to question 1 and/or 2 is ?yes?, complete ?Intensity of Ideation? section below. 1. Wish to be ? Subject endorses thoughts about a wish to be or not alive anymore, or wish to fall asleep and not wake up. Have you wished you were or wished you could go to sleep and not wake up? Lifetime: Time He/She Ponce Most Suicidal: ?N/A Past 1 month: N/A Please Describe if yes: ? 2. Non-Specific Active Suicidal Thoughts General, non-specific thoughts of wanting to end one?s life/commit suicide (e.g., ?I?ve thought about killing myself?) without thoughts of ways to kills oneself/associated methods, intent, or plan during the assessment period.? Have you actually had any thoughts of killing yourself? Lifetime: Time He/She Ponce Most Suicidal: ?N/A Past 1 month: N/A Please Describe if yes: 3. Active Suicidal Ideation with Any Methods (Not Plan) without Intent to Act Subject endorses thoughts of suicide and has thought of at least one method during the assessment period.? This is different than a specific plan with time, place, or method details worked out (e.g., thought of method to kills self but not a specific plan).? Includes person who would say ?I thought about thanking an overdose, but I never made a specific plan as to when, where or how. I would actually do it, and I would never go through with it.? Have you been thinking about how you might do this? Lifetime: Time He/She Ponce Most Suicidal: ? Past 1 month:? Please Describe if yes: 4. Active Suicidal Ideation with Some Intent to Act, without Specific Plan Active suicidal thoughts of kills oneself fand subject reports having some intent to act on such thoughts, as opposed to ?I have the thoughts but I definitely will not do anything about them.? Have you had these thoughts and had some intention of acting on them? Lifetime: Time He/She Ponce Most Suicidal: Past 1 month: Please Describe if yes: 5. Active Suicidal Ideation with Specific Plan and Intent Thoughts of kills oneself with details of plan fully or partially worked out and subject has some intent to care it out. Have you started to work out or worked out the details of how to kill yourself? Do you intend to carry out this plan? Lifetime: Time He/She Ponce Most Suicidal: Past 1 month: ??? Please Describe if yes: INTENSITY OF IDEATION The following feature should be rated with respect to the most sever type of ideation (i.e., 1-5 from above, with 1 being the least severe and 5 being the most severe). Ask about time he/she/they were feeling the most suicidal.? Lifetime - Most Severe Ideation: Type # (1-5): Description: Recent - Most Severe Ideation: Type # (1-5): Description: Frequency How many times have you had these thoughts? Lifetime: (1) Less than once a week??? (2) Once a week?? (3)? 2-5 times in week??? (4) Daily or almost daily??? (5) Many times each day Recent, Past 1 month:? (1) Less than once a week??? (2) Once a week?? (3)? 2-5 times in week??? (4) Daily or almost daily??? (5) Many times each day Duration When you have the thoughts how long do they last? Lifetime: (1) Fleeting - few seconds or minutes? (2) Less than 1 hour/some of the time? (3) 1-4 hours/a lot of time? 4) 4-8 hours/most of day? (5) More than 8 hours/persistent or continuous Recent, Past 1 month :? (1) Fleeting - few seconds or minutes? (2) Less than 1 hour/some of the time? (3) 1-4 hours/a lot of time? 4) 4-8 hours/most of day? (5) More than 8 hours/persistent or continuous Controllability Could/can you stop thinking about killing yourself or wanting to if you want to? Lifetime:? (1) Easily able to control thoughts?? (2) Can control thoughts with little difficulty??? (3) Can control thoughts with some difficulty??? 4) Can control thoughts with a lot of difficulty? (5) Unable to control thoughts?? (0) Does not attempt to control thoughts Recent, Past 1 month: (1) Easily able to control thoughts?? (2) Can control thoughts with little difficulty??? (3) Can control thoughts with some difficulty??? 4) Can control thoughts with a lot of difficulty? (5) Unable to control thoughts?? (0) Does not attempt to control thoughts Deterrents Are there things - anyone or anything (e.g., family, taoism, pain of ) - that stopped you from wanting to or acting on thoughts of committing suicide? Lifetime:? (1) Deterrents definitely stopped you from attempting suicide? (2) Deterrents probably stopped you?? (3) Uncertain that deterrents stopped you? (4) Deterrents most likely did not stop you? (5) Deterrents definitely did not stop you?? 0) Does not apply??? Recent:??? (1) Deterrents definitely stopped you from attempting suicide? (2) Deterrents probably stopped you?? (3) Uncertain that deterrents stopped you? (4) Deterrents most likely did not stop you? (5) Deterrents definitely did not stop you?? 0) Does not apply??? Reasons for Ideation What sort of reasons did you have for thinking about wanting to or killing yourself? Was it to end the pain or stop the way you were feeling (in other words you couldn?t go on living with this pain or how you were feeling) or was it to get attention, revenge or a reaction from others? Or both? Lifetime: (1) Completely to get attention, revenge or a reaction from?? (2) Mostly to get attention, revenge or a reaction from others? (3) Equally to get attention, revenge or a reaction from others? and to end/stop the pain?? ( 4) Mostly to end or stop the pain (you couldn?t go on living with the pain or how you were feeling)??? (5) Completely to end or stop the pain (you couldn?t go on living with the pain or? how you were feeling)??? (0)? Does not apply? Recent: (1) Completely to get attention, revenge or a reaction from?? (2) Mostly to get attention, revenge or a reaction from others? (3) Equally to get attention, revenge or a reaction from others? and to end/stop the pain??? (4) Mostly to end or stop the pain (you couldn?t go on living with the pain or how you were feeling)?? (5) Completely to end or stop the pain (you couldn?t go on living with the pain or? how you were feeling)?? (0)? Does not apply? SUICIDAL BEHAVIOR Actual Attempt: A potentially self-injurious act committed with at least some wish to , as a result of act.? Behavior was in part thought of as method to kill oneself.? Intent does not have to be 100%.? If there is any intent/desire to associated with the act, then it can be considered an actual suicide attempt.? There does not have to be any injury of harm, just the potential for injury or harm.? If person pulls trigger while gun is in mouth, but gun is broken so no injury results, this is considered an attempt.? Inferring intent:? Even if an individual denies intent/wish to , it may be inferred clinically from the behavior or circumstances.? For example, a highly lethal act that is clearly not an accident so no other intent but suicide can be inferred (e.g. gunshot to head, jumping from window of a high floor/story).? Also, if someone denies intent to , but they thought that what they did could be lethal, intent may be inferred.? Have you made a suicide attempt? Have you done anything to harm yourself? Have you done anything dangerous where you could have ? What did you do? Did you as a way to end your life? Did you want to (even a little) when you ? Were you trying to end your life when you ? Or did you think it was possible you could have from ? Or did you do it purely for other reasons/without ANY intention of killing yourself like to relieve stress, feel better, get sympathy, or get something else to happen)? (Self -Injurious Behavior without suicidal intent) Lifetime: N/A Past 3 months: N/A If yes, describe: N/A Total # of Attempts in His/Her Lifetime: N/A Total # of attempts in Past 3 months: N/A Has person engaged in Non-Suicidal Sefl-Injurious Behavior? Lifetime: N/A Past 3 months: N/A Interrupted Attempt:? When the person is interrupted (by an outside circumstance) from starting the potentially self-injurious act (if not for that, actual attempt would have occurred).? Overdose: Person has pills in hand but is stopped from ingesting. Once they ingest any pills, this becomes an attempt rather than an interrupted attempt. Shooting: Person has gun pointed toward self, gun is taken away by someone else, or is somehow prevented from pulling trigger. Once they pull the trigger, even if the gun fails to fire, it is an attempt. Jumping: Person is poised to jump, is grabbed and taken down from ledge.? Hanging: Person has noose around neck but has not yet started to hang self -is stopped from doing so.? Has there been a time when you started to do something to end your life but someone or something stopped you before you did anything? Lifetime: N/A Past 3 months: N/A If yes, describe: ?N/A Total # of interrupted attempts in His/Her Lifetime: N/A Total # of interrupted attempts in Past 3 months: N/A Aborted or Self-Interrupted Attempt:? When person begins to take steps toward making a suicide attempt, but stops themselves before they have actually engaged in any self-destructive behavior. Examples are like interrupted attempts, except that the individual stops him/herself, instead of being stopped by something else. Has there been a time when you started to do something to try to end your life, but you stopped yourself before you did anything? Lifetime: N/A Past 3 months: N/A If yes, describe: N/A Total # of aborted or self-interrupted attempts in His/Her Lifetime: N/A Total # of aborted or self-interrupted attempts in Past 3 months: N/A Preparatory Acts or Behavior:? Acts or preparation towards imminently making a suicide attempt. This can include anything beyond a verbalization or thought, such as assembling a specific method (e.g., buying pills, purchasing a gun) or preparing for one?s by suicide (e.g., giving things away, writing a suicide note). Have you taken any steps towards making a suicide attempt or preparing to kill yourself (such as collecting pills, getting a gun, giving valuables away or writing a suicide note)? Lifetime: N/A Past 3 months: N/A If yes, describe: ?N/A Total # of preparatory acts in His/Her Lifetime: N/A Total # of preparatory acts in Past 3 months: N/A Lethality/Medical Damage:??? 0.? No physical damage or very minor physical damage (e.g., surface scratches). 1.? Minor physical damage (e.g., lethargic speech; first-degree caldwell; mild bleeding; sprains). 2.? Moderate physical damage; medical attention needed (e.g., conscious but sleepy, somewhat responsive; second-degree caldwell; bleeding of major vessel). 3.? Moderately severe physical damage; medical hospitalization and likely intensive care required (e.g., comatose with reflexes intact; third-degree caldwell less than 20% of body; extensive blood loss but can recover; major fractures). 4.? Severe physical damage; medical hospitalization with intensive care required (e.g., comatose without reflexes; third-degree caldwell over 20% of body; extensive blood loss with unstable vital signs; major damage to a vital area). 5.? Most Recent attempt Date: Code: Most Lethal Attempt Date: Code: Initial/First Attempt Date: Code: Potential Lethality:? Only Answer if Actual Lethality=0 Likely lethality of actual attempt if no medical damage (the following examples, while having no actual medical damage, had potential for very serious lethality: put gun in mouth and pulled the trigger but gun fails to fire so no medical damage; laying on train tracks with oncoming train but pulled away before run over). 0 = Behavior not likely to result in injury 1 = Behavior likely to result in injury but not likely to cause 2 = Behavior likely to result in despite available medical care Most Recent Attempt Code: Most Lethal Attempt Code: Initial/First Attempt Code: Assessment Summary: due to patient appearing to be unable to care for self, displaying some paranoia with blunted and delayed responses, poor insight into current situation, lack of proper self care, and increasing confusion, patient would benefit from inpatient treatment for stabilization and evaluation of medication. Spoke with doctor who agrees. Plan: inpatient mental health treatment Leydi Donohue, GOVERNMENT CONTRACTS MANAGER, SHUTTLE BUGGY OPERATOR
[2024-07-11 16:16] LABS: Amphetamine Urine PRESUMPTIVE POSITIVE (<1000 ng/mL); Barbiturate Urine NEGATIVE (< 200 ng/mL); Benzodiazepine Urine PRESUMPTIVE POSITIVE (< 200 ng/mL); Buprenorphine Urine NEGATIVE (< 200 ng/mL); Cocaine Urine NEGATIVE (< 300 ng/mL); Fentanyl, Urine NEGATIVE; Methadone Urine NEGATIVE (< 300 ng/mL); Opiates Urine NEGATIVE (< 300 ng/mL); Oxycodone, Urine NEGATIVE (< 100 ng/mL); PCP Urine NEGATIVE (< 25 ng/mL); THC Urine NEGATIVE (< 50 ng/mL)
--- NOTE | 2024-07-11 17:27 | CM.ED ---
Social work After assessing patient per Dr. Roper's request, this SW determined patient should not discharge home due to patient's inability to provide for patient's basic needs. Patient does not know what medicines patient takes, medications were reportedly found on the floor (patient states placing the medication there so patient could pick it back up, and patient states not knowing the last time patient bathed. Patient states not reading well since the stroke, but patient could not recall when patient's stroke was. Patient could not recall what [facility] was despite having a confirmed manager case through [facility]. At one point during assessment, patient stated did you just hear that person knocking? when nobody was near patient's door. Patient oriented to time of day (almost 1500), place ([facility]), and person (both name and ); however, patient stated the year was 2524 and was not certain who the President was. Patient was able to share patient's address, though stated the date was July [address]. Patient had blunted affect and delayed responses throughout conversation. Patient is prescribed Abilify and Xanax, though it is unknown if patient takes medication as prescribed. SW flame cutting supervisor Ayala NEVAREZ and Dr. Dinero agreed with looking into psychiatric placement for stabilization and evaluation of medication. Portis slip on chart. Called [facility], [place], and [facility] -- [facility]. Called [facility] (ph: [phone]) and they did have beds available. Referral faxed (f: [phone]). Plan: inpatient mental health treatment Leydi Donohue, NIP WRAPPER, COMMERCIAL REAL ESTATE ATTORNEY
[2024-07-11 17:55] LABS: Troponin T High Sens 4 HR 19 ng/L (<=22)
--- NOTE | 2024-07-11 19:52 | CM.ED ---
Social work Vesna from [facility] called back. They are willing to consider accepting patient once they receive a fax containing results from a COVID/respiratory panel. settlement clerk Morgan updated with request. Leydi Donohue, SPEECH INSTRUCTOR, CAREER AND GUIDANCE COUNSELOR
--- NOTE | 2024-07-11 20:17 | CM.ED ---
Social work Handoff to Crisis (ph: [phone]) and packet faxed (f: ). [facility] ED staff aware of need to fax COVID/respiratory panel when results come back; Crisis aware of need to fax those results to [facility]. Entire packet faxed in case [facility] falls through. Plan: inpatient mental health treatment Leydi Donohue, COMMUNITY SERVICE WORKER, CERTIFIED REGISTERED LOCKSMITH
[2024-07-11] MEDS: Lorazepam 2 MG/ML WCH Syringe 1 MG IV (20:43)
[2024-07-11] MEDS: DiphenhydrAMINE 50 MG/ML Syringe IV (21:50)
--- NOTE | 2024-07-11 22:16 | PCA ---
[facility] CALLED, [facility] DECLINED DUE TO INAPPROPRIATE FOR PLACEMENT
--- NOTE | 2024-07-11 23:20 | ED.RN ---
Pt is a poor historian and there are no contacts on his chart in order to accurately complete his medication reconciliation.
--- NOTE | 2024-07-11 23:20 | PCA ---
REFERRED TO GENERATIONS
[2024-07-12] MEDS: Haloperidol Lactate 5 MG/ML Vial 2.5 MG IV (01:25)
[2024-07-12 04:00] VITALS: BP 129/89; PULSE 60; RESP 18; TEMP 36.7; O2SAT 96
--- NOTE | 2024-07-12 08:09 | PCA ---
DOC CALLED FROM CRISIS ACCEPTED AT [facility] AT [phone] CAMP. 2-3HRS (10AM- 11AM) FOR RIDE STEEP TENDER
--- NOTE | 2024-07-12 10:30 | CM.ED ---
Social work Called patient's [facility] pillowcase cutter, [employer] (ph: [phone]) and received a voicemail. Left a voicemail requesting a return call in order to inform of patient's admission to [facility] this morning. Leydi Donohue, FURNACE OPERATOR AND TENDER, DUST OPERATOR
[2024-07-12 10:36] VITALS: BP 118/73; PULSE 75; RESP 16; TEMP 36.6; O2SAT 95
--- NOTE | 2024-07-12 10:47 | ED.RN ---
Report called to generations
[2024-07-12 15:43] LABS: Bedside Glucose 116 mg/dL (74-106)
--- NOTE | 2024-07-19 12:48 | CM.ED ---
Addendum entered by Leydi Donohue 07/19/24 16:31: Social work Received call from Agustín at [facility] (ph: [phone]) asking same question about where this patient was located. Same information provided. No further current needs identified. HERMES Caldera, MATH AND SCIENCE DIVISION CHAIR Original Note: Social work Received voicemail from Venus Patino with [employer] (ph: ) this morning asking about patient's whereabouts. Venus confirmed patient's name and , as well as knowing that patient had presented to the [facility] ED on 07/05/24 and 07/11/24. Venus stated not knowing where patient had discharged to as patient's home meal service was wondering and a welfare check had been done with no patient known. JASMEET stated patient had left [facility] ED and gone to [facility] on 07/12/24 and patient had not been back to [facility] ED since. JASMEET clarified that SW had left a voicemail for patient's [facility] director case, [employer] (ph: [phone]) on 07/12/24 and [employer]iti did not return call. JASMEET also clarified that patient denied having any emergency contacts listed for patient. Venus thanked for time spent and denied further needs at this time. HERMES Caldera, MATH AND SCIENCE DIVISION CHAIR
== END 2024-07-12 10:48 ==
PROVIDERS: Emergency Medicine; Emergency Provider Emergency Medicine; PCP Family Medicine; Visit Provider Emergency Medicine
DX: R41.0 Disorientation, unspecified (principal); E11.43 Type 2 diabetes mellitus with diabetic autonomic (poly)neuropathy; F17.210 Nicotine dependence, cigarettes, uncomplicated; I10 Essential (primary) hypertension; K31.84 Gastroparesis; Z79.85 Long-term (current) use of injectable non-insulin antidiabetic drugs; Z79.899 Other long term (current) drug therapy; R29.6 Repeated falls; Z91.81 History of falling
CPT/HCPCS: 70450; 71045; 72125; 80053; 80307; 81001; 82962; 84484; 85025; 87631; 93005; 96361; 96374; 96375; 99285; P9612; A4216

== ENCOUNTER → 2024-09-13 | Outpatient (CLI) | payer MEDICARE, MEDICAID, SELFPAY ==
[2024-09-13 18:41] LABS: Cholesterol 176 mg/dL (<=200); High Density Lipoprotein 39 mg/dL; Low Density Lipoprotein Calc. 94 mg/dL; Triglycerides 216 mg/dL; Very Low Density Lipoprotein 43 mg/dL (5-40)
== END | disposition home or self-care (01) ==
LOC: BFHLAB 14:43
PROVIDERS: PCP Family Medicine; Visit Provider Family Medicine
DX: Z12.5 Encounter for screening for malignant neoplasm of prostate (principal); E78.5 Hyperlipidemia, unspecified
CPT/HCPCS: 36415; 80061; 84153; G0103